=== PATIENT | female | born 1970 | race Caucasian/White ===

== ENCOUNTER 2016-05-02 12:37 | Emergency (ER) | payer OTHER ==
[2016-05-02] MEDS ORDERED: ONDANSETRON 4 MG TAB.RAPDIS PO ONE (12:55)
--- NOTE | 2016-05-02 12:57 | ER Document Report ---
ED Medical Screen (RME) - General Stated Complaint: DIZZINESS, NAUSEA Mode of Arrival: Ambulatory Information source: Patient Notes: 46 y/o F presents to ED c/o bilateral lower abd pain over the last week. Reports pain radiates to lower back and has associated intermittent nausea and dizziness. Reports similar episodes in the past. I have greeted and performed a rapid initial assessment of this patient. A comprehensive ED assessment and evaluation of the patient, analysis of test results and completion of the medical decision making process will be conducted by additional ED providers. TRAVEL OUTSIDE OF THE [place] IN LAST 30 DAYS: No - Related Data Allergies/Adverse Reactions: No Known Allergies Allergy (Verified 08/15/15 17:17) Past Medical History - Past Medical History Cardiac Medical History: Reports: Hx Hypertension Pulmonary Medical History: Reports: Hx Asthma, Hx COPD GI Medical History: Reports: Hx Gastroesophageal Reflux Disease Psychiatric Medical History: Reports: Hx Anxiety, Hx Attention Deficit Hyperactivity Disorder, Hx Bipolar Disorder, Hx Depression Past Surgical History: Reports: Hx Appendectomy, Hx Hysterectomy - Immunizations Hx Diphtheria, Pertussis, Tetanus Vaccination: Yes Physical Exam - Vital signs Vitals: Temp Pulse Resp BP Pulse Ox 98.4 F 98 20 132/84 H 95 05/02/16 12:53 05/02/16 12:53 05/02/16 12:53 05/02/16 12:53 05/02/16 12:53 - General General appearance: Appears well, Alert In distress: None - Respiratory Respiratory status: No respiratory distress Course - Vital Signs Vital signs: Temp Pulse Resp BP Pulse Ox 98.4 F 98 20 132/84 H 95 05/02/16 12:53 05/02/16 12:53 05/02/16 12:53 05/02/16 12:53 05/02/16 12:53
[2016-05-02 13:39] LABS: ABSOLUTE BASOPHILS # (AUTO) 0.1 10^3/uL (0.0-0.2); ABSOLUTE EOSINOPHILS # (AUTO) 0.1 10^3/uL (0.0-0.6); ABSOLUTE LYMPHOCYTES (AUTO) 3.6 10^3/uL (0.5-4.7); ABSOLUTE MONOCYTES (AUTO) 0.6 10^3/uL (0.1-1.4); ABSOLUTE NEUT (AUTO) 6.2 10^3/uL (1.7-8.2); BASOPHILS % (AUTO) 0.5 % (0-2); EOSINOPHILS % (AUTO) 0.6 % (0-6); HEMATOCRIT 45.6 % (36.0-47.0); HEMOGLOBIN 15.7 g/dL (12.0-15.5); HGB HCT DIFFERENCE 1.5; LYMPHOCYTES % (AUTO) 34.1 % (13-45); MEAN CORPUSCULAR HEMOGLOBIN 32.8 pg (27.0-33.4); MEAN CORPUSCULAR HGB CONC 34.4 g/dL (32.0-36.0); MEAN CORPUSCULAR VOLUME 96 fl (80-97); MONOCYTES % (AUTO) 5.7 % (3-13); RED BLOOD COUNT 4.77 10^6/uL (3.72-5.28); RED CELL DISTRIBUTION WIDTH 13.3 % (11.5-14.0); SEGMENTED NEUTROPHILS % (AUTO) 59.1 % (42-78); WHITE BLOOD COUNT 10.5 10^3/uL (4.0-10.5)
[2016-05-02 13:41] LABS: APPEARANCE,URINE CLEAR; BILIRUBIN,URINE NEGATIVE (NEGATIVE); GLUCOSE, URINE NEGATIVE (NEGATIVE); KETONES,URINE NEGATIVE (NEGATIVE); LEUKOCYTE ESTERASE,URINE NEGATIVE (NEGATIVE); NITRITE,URINE NEGATIVE (NEGATIVE); PROTEIN,URINE NEGATIVE (NEGATIVE); URINE SPECIFIC GRAVITY 1.004; UROBILINOGEN,URINE NEGATIVE mg/dL (<2.0)
[2016-05-02 13:54] LABS: ALANINE AMINOTRANSFERASE 34 U/L (9-52); ALBUMIN 4.5 g/dL (3.5-5.0); ALKALINE PHOSPHATASE 92 U/L (38-126); ANION GAP 8 (5-19); ASPARTATE AMINO TRANSFERASE 17 U/L (14-36); BILIRUBIN,TOTAL 0.6 mg/dL (0.2-1.3); BLOOD UREA NITROGEN 9 mg/dL (7-20); CALCIUM 10.3 mg/dL (8.4-10.2); CARBON DIOXIDE 30 mmol/L (22-30); CHLORIDE 102 mmol/L (98-107); CREATININE RESULT 0.82 mg/dL (0.52-1.25); GLUCOSE 86 mg/dL (75-110); LIPASE 49.9 U/L (23-300); SODIUM 140.4 mmol/L (137-145); TOTAL PROTEIN 7.1 g/dL (6.3-8.2)
[2016-05-02] MEDS ORDERED: KETOROLAC TROMETHAMINE 60 MG/2 ML SDV IM ONE (19:38)
--- NOTE | 2016-05-02 19:49 | ER Document Report ---
ED GI/ - General Chief Complaint: Abdominal Pain Stated Complaint: DIZZINESS, NAUSEA Mode of Arrival: Ambulatory Notes: Patient is complaining of pain in the lower lumbar region bilaterally that comes around to the anterior abdomen and culminates in the epigastric region of the abdomen. She says that she's had the same pain in the past and has been attributed to gallstones that she has had on ultrasound, the most recent being in August,. Patient is trying to work through the paperwork process of getting her gallbladder and no stones removed, but is still a month or 2 away from that goal. She's had some nausea and vomiting. Has chronic diarrhea for the past 2 months. Has been feeling dizzy as well. Some difficulty breathing and shortness of breath. Has a history of asthma and COPD and still smokes. Has not noticed any fever but has had some chills. Patient is concerned that her gallbladder will rupture and that's her primary reason for coming to the emergency department today. PMH: Appendectomy and hysterectomy. TRAVEL OUTSIDE OF THE [place] IN LAST 30 DAYS: No - Related Data Allergies/Adverse Reactions: No Known Allergies Allergy (Verified 05/02/16 12:56) Past Medical History - General Information source: Patient - Social History Smoking Status: Current Every Day Smoker Cigarette use (# per day): Yes Chew tobacco use (# tins/day): No Frequency of alcohol use: None Drug Abuse: None Family History: Reviewed & Not Pertinent Patient has suicidal ideation: No Patient has homicidal ideation: No - Past Medical History Cardiac Medical History: Reports: Hx Hypertension Pulmonary Medical History: Reports: Hx Asthma, Hx COPD GI Medical History: Reports: Hx Gastroesophageal Reflux Disease Musculoskeltal Medical History: Reports Other - Chronic back pain on Celexa and Percocet 15 mg every 4 hours as needed. Psychiatric Medical History: Reports: Hx Anxiety, Hx Attention Deficit Hyperactivity Disorder, Hx Bipolar Disorder, Hx Depression Past Surgical History: Reports: Hx Appendectomy, Hx Hysterectomy - Immunizations Hx Diphtheria, Pertussis, Tetanus Vaccination: Yes Hx Pneumococcal Vaccination: 12/11/14 Review of Systems - Review of Systems Notes: REVIEW OF SYSTEMS: CONSTITUTIONAL : Denies fever. EENT: Denies eye, ear, nose or mouth or throat pain or other symptoms. CARDIOVASCULAR: Denies chest pain. RESPIRATORY: Denies cough, chest congestion, but does occasionally feel short of breath or has difficulty breathing. GASTROINTESTINAL: See history of present illness. GENITOURINARY: Denies difficulty or painful urinating, urinary frequency, blood in urine. MUSCULOSKELETAL: Denies neck pain. Denies joint pain or swelling. SKIN: Denies rash or skin lesions. NEUROLOGICAL: Denies LOC or altered mental status. Denies headache. Denies sensory loss or motor deficits. ALL OTHER SYSTEMS REVIEWED AND NEGATIVE. Physical Exam - Vital signs Vitals: Temp Pulse Resp BP Pulse Ox 98.4 F 98 20 132/84 H 95 05/02/16 12:53 05/02/16 12:53 05/02/16 12:53 05/02/16 12:53 05/02/16 12:53 Interpretation: Normal - Notes Notes: PHYSICAL EXAMINATION: GENERAL: Well-appearing, in no acute distress. Vital signs are all normal. HEAD: Atraumatic, normocephalic. NECK: Normal range of motion, supple. LUNGS: Breath sounds clear and equal bilaterally. HEART: Regular rate and rhythm without murmurs. ABDOMEN: Soft, tender upper abdomen and in particular at the right upper quadrant where the gallbladder is located.. No guarding or rebound, however. BACK: No tenderness throughout entire back. EXTREMITIES: Normal range of motion without pain. PSYCH: Anxious. SKIN: Warm, dry, no rashes. Course - Re-evaluation Re-evalutation: 05/02/16 19:55 Ultrasound from August,, reviewed showing gallstones but no inflammation of the gallbladder at that time. Patient reassured that based upon her exam as well as her lab studies, I don't think it's likely that she's going to rupture her gallbladder. I'm giving her an injection of Toradol which she says helps her pain when she gets it. She has sufficient pain medications at home already. Return if she has increasing or worsening pain or other symptoms or fevers, etc. 05/02/16 19:56 - Vital Signs Vital signs: Temp Pulse Resp BP Pulse Ox 98.4 F 98 20 132/84 H 95 05/02/16 12:53 05/02/16 12:53 05/02/16 12:53 05/02/16 12:53 05/02/16 12:53 - Laboratory Result Diagrams: 05/02/16 13:15 05/02/16 13:15 Laboratory results interpreted by me: 05/02/16 05/02/16 13:15 13:15 Hgb 15.7 H Calcium 10.3 H Discharge - Discharge Clinical Impression: Abdominal pain Qualifiers: Abdominal location: right upper quadrant Qualified Code(s): R10.11 - Right upper quadrant pain Cholelithiasis Qualifiers: Cholelithiasis location: gallbladder Cholecystitis presence: without cholecystitis Biliary obstruction: without biliary obstruction Qualified Code(s) : K80.20 - Calculus of gallbladder without cholecystitis without obstruction Condition: Stable Disposition: HOME, SELF-CARE Additional Instructions: ABDOMINAL PAIN: There are many causes of abdominal pain. Pain can mean a serious problem requiring surgery (such as appendicitis). It can also be an innocent problem that goes away on its own (such as a viral infection). Often, time must pass to determine the cause of pain. The physician does not feel that hospitalization is necessary, at present. Things may change within the next 24 hours. Call the doctor or come back for re- examination if any problems occur, such as: (1) Pain that becomes more severe, steady, or becomes concentrated in one specific area. Also, pain that is more severe with movement or coughing. (2) Vomiting that persists or becomes more frequent. (3) Blood in the vomitus, urine, or bowel movements. Blood in the stool may have a tarry or black appearance. (4) Shaking chills or fever greater than 100 degrees F. (5) The abdomen becomes more distended or swollen. (6) Bowel movements cease. (7) Failure to improve as expected. NORMAL EXAM AND WORKUP: At this time, your examination and workup show no significant abnormality. No significant abnormal physical findings are noted. All laboratory, EKG, and imaging (x-ray, CT scans, ultrasound) studies that were ordered show no significant abnormality. Although your examination and all studies that were ordered showed no significant abnormal finding, there are no examinations and no studies that are 100% accurate. There is always the possibility that some abnormality could exist and not be detected with physical examination or within the limits and capabilities of laboratory and other studies. You should return or follow up as you were instructed on your visit today for further evaluation if your symptoms do not resolve. Your ultrasound in August,, showed Gallbladder Disease with gallstones. The gallbladder is a pouch under the liver which stores bile. Stones, infection, or irritation of the gallbladder cause attacks of pain. Certain foods -- fats in particular -- may provoke attacks. The usual treatment for gallbladder disease is surgical removal of the gallbladder -- called a cholecystectomy. You will be referred to a physician qualified to advise you on the best treatment for your problem. Hospitalization is not necessary. Take clear liquids only until you are painfree. After that, you should stay on a low-fat diet, with frequent SMALL meals. Call the doctor or return at once if you develop severe pain, repeated vomiting, fever, or jaundice (a yellow color in the skin and whites of the eyes) . TORADOL INJECTION: You have been given an injection of ketorolac tromethamine (Toradol). This is an excellent, safe drug for pain control. It also has potent antiinflammatory action. You should have significant pain relief within about one hour. Toradol is not addicting and is non-sedating. It does not interfere with driving or work. Call or return if you develop itching, hives, shortness of breath, or rash. FOLLOW-UP CARE: If you have been referred to a physician for follow-up care, call the physician s office for an appointment as you were instructed or within the next two days. If you experience worsening or a significant change in your symptoms, notify the physician immediately or return to the Emergency Department at any time for re-evaluation. If your pain worsens, you begin to have uncontrollable vomiting, or if you start running fevers, come back for us to reevaluate.
[2016-05-02 20:09] VITALS: BP 134/86
== END 2016-05-02 20:09 | disposition home or self-care (01) ==
LOC: ER 12:37
DX: K80.20 Calculus of gallbladder without cholecystitis without obstruction (principal); R10.11 Right upper quadrant pain; R10.9 Unspecified abdominal pain; R42 Dizziness and giddiness; R11.0 Nausea; F17.210 Nicotine dependence, cigarettes, uncomplicated
CPT/HCPCS: 99284; 96372; 36415; 83690; 85025; 80053; 81001; J1885; S0119

== ENCOUNTER 2016-06-05 18:14 | Emergency (ER) | payer OTHER ==
[2016-06-05] MEDS ORDERED: PREDNISONE 20 MG TABLET PO ONE (18:19)
[2016-06-05] MEDS ORDERED: IPRATROPIUM/ALBUTEROL 0.5-2.5 MG/3 ML AMPUL NEB ONE (18:20)
--- NOTE | 2016-06-05 18:21 | ER Document Report ---
ED Medical Screen (RME) - General Stated Complaint: DIFFICULTY BREATHING Mode of Arrival: Wheelchair Information source: Patient Notes: Patient presents emergency department with chest tightness difficulty breathing. History of asthma. Ran out of her inhaler. Positive wheeze. Denies fever vomiting diarrhea. I have greeted and performed a rapid initial assessment of this patient. A comprehensive ED assessment and evaluation of the patient, analysis of test results and completion of the medical decision making process will be conducted by additional ED providers. TRAVEL OUTSIDE OF THE [place] IN LAST 30 DAYS: No - Related Data Allergies/Adverse Reactions: No Known Allergies Allergy (Verified 06/05/16 18:19) Past Medical History - Past Medical History Cardiac Medical History: Reports: Hx Hypertension Pulmonary Medical History: Reports: Hx Asthma, Hx COPD Renal/ Medical History: Denies: Hx Peritoneal Dialysis GI Medical History: Reports: Hx Gastroesophageal Reflux Disease Psychiatric Medical History: Reports: Hx Anxiety, Hx Attention Deficit Hyperactivity Disorder, Hx Bipolar Disorder, Hx Depression Past Surgical History: Reports: Hx Appendectomy, Hx Hysterectomy - Immunizations Hx Diphtheria, Pertussis, Tetanus Vaccination: Yes
[2016-06-05] MEDS ORDERED: ALBUTEROL SULFATE 0.083% NEB 2.5 MG/3 ML AMPUL NEB SCH (18:35)
== END 2016-06-05 21:03 | disposition left against medical advice (07) ==
LOC: ER 18:14
DX: J44.9 Chronic obstructive pulmonary disease, unspecified (principal); R07.89 Other chest pain; R06.00 Dyspnea, unspecified; I10 Essential (primary) hypertension; Z53.20 Procedure and treatment not carried out because of patient's decision for unspecified reasons
CPT/HCPCS: 94640 ×2; 99281; J7512; J7620

== ENCOUNTER 2016-06-07 15:52 | Emergency (ER) | payer OTHER ==
[2016-06-07] MEDS ORDERED: ASPIRIN 81 MG TABLET, CHEWABLE PO ONE (16:48)
[2016-06-07] MEDS ORDERED: ALBUTEROL SULFATE 0.083% NEB 2.5 MG/3 ML AMPUL NEB ONE (16:49)
--- NOTE | 2016-06-07 16:49 | ER Document Report ---
ED Medical Screen (RME) - General Stated Complaint: SHORTNESS OF BREATH Notes: Patient complains of shortness of breath and chest pain that is shooting through between her shoulder blades since Monday. Patient does have COPD, and thinks she has beginning pneumonia. No known fever. Patient is not on oxygen at home, but does use inhalers which she states are not helping her. Patient's cough is productive but in small amounts. I have greeted and performed a rapid initial assessment of this patient. A comprehensive ED assessment and evaluation of the patient, analysis of test results and completion of the medical decision making process will be conducted by additional ED providers. TRAVEL OUTSIDE OF THE [place] IN LAST 30 DAYS: No - Related Data Allergies/Adverse Reactions: No Known Allergies Allergy (Verified 06/07/16 16:45) Past Medical History - Past Medical History Cardiac Medical History: Reports: Hx Hypertension Pulmonary Medical History: Reports: Hx Asthma, Hx COPD Renal/ Medical History: Denies: Hx Peritoneal Dialysis GI Medical History: Reports: Hx Gastroesophageal Reflux Disease Psychiatric Medical History: Reports: Hx Anxiety, Hx Attention Deficit Hyperactivity Disorder, Hx Bipolar Disorder, Hx Depression Past Surgical History: Reports: Hx Appendectomy, Hx Hysterectomy - Immunizations Hx Diphtheria, Pertussis, Tetanus Vaccination: Yes Physical Exam - Vital signs Vitals: Temp Pulse Resp BP Pulse Ox 98.6 F 80 14 112/84 94 06/07/16 16:35 06/07/16 16:35 06/07/16 16:35 06/07/16 16:35 06/07/16 16:35 - Respiratory Respiratory status: Labored Breath sounds: Decreased air movement, Wheezing Course - Vital Signs Vital signs: Temp Pulse Resp BP Pulse Ox 98.6 F 80 14 112/84 94 06/07/16 16:35 06/07/16 16:35 06/07/16 16:35 06/07/16 16:35 06/07/16 16:35
[2016-06-07 17:14] LABS: ABSOLUTE BASOPHILS # (AUTO) 0.1 10^3/uL (0.0-0.2); ABSOLUTE EOSINOPHILS # (AUTO) 0.1 10^3/uL (0.0-0.6); ABSOLUTE LYMPHOCYTES (AUTO) 3.6 10^3/uL (0.5-4.7); ABSOLUTE MONOCYTES (AUTO) 0.6 10^3/uL (0.1-1.4); ABSOLUTE NEUT (AUTO) 5.6 10^3/uL (1.7-8.2); BASOPHILS % (AUTO) 0.7 % (0-2); EOSINOPHILS % (AUTO) 1.4 % (0-6); HEMATOCRIT 45.9 % (36.0-47.0); HEMOGLOBIN 15.6 g/dL (12.0-15.5); HGB HCT DIFFERENCE 0.9; LYMPHOCYTES % (AUTO) 35.9 % (13-45); MEAN CORPUSCULAR HEMOGLOBIN 32.5 pg (27.0-33.4); MEAN CORPUSCULAR HGB CONC 34.1 g/dL (32.0-36.0); MEAN CORPUSCULAR VOLUME 95 fl (80-97); MONOCYTES % (AUTO) 5.9 % (3-13); RED BLOOD COUNT 4.82 10^6/uL (3.72-5.28); RED CELL DISTRIBUTION WIDTH 13.2 % (11.5-14.0); SEGMENTED NEUTROPHILS % (AUTO) 56.1 % (42-78)
[2016-06-07 17:18] LABS: PROTHROMBIN TIME 12.5 SEC (11.4-15.4)
[2016-06-07 17:30] LABS: ALANINE AMINOTRANSFERASE 29 U/L (9-52); ALBUMIN 4.4 g/dL (3.5-5.0); ALKALINE PHOSPHATASE 100 U/L (38-126); ANION GAP 9 (5-19); ASPARTATE AMINO TRANSFERASE 17 U/L (14-36); BILIRUBIN,DIRECT 0.1 mg/dL (0.0-0.4); BILIRUBIN,TOTAL 0.6 mg/dL (0.2-1.3); BLOOD UREA NITROGEN 20 mg/dL (7-20); CALCIUM 10.3 mg/dL (8.4-10.2); CARBON DIOXIDE 31 mmol/L (22-30); CHLORIDE 103 mmol/L (98-107); CREATINE KINASE 48 U/L (30-135); CREATININE RESULT 0.88 mg/dL (0.52-1.25); GLUCOSE 88 mg/dL (75-110); SODIUM 143.3 mmol/L (137-145); TOTAL PROTEIN 7.1 g/dL (6.3-8.2)
[2016-06-07 17:41] LABS: CREATINE KINASE MB 0.39 ng/mL (<4.55)
[2016-06-07 17:43] LABS: TROPONIN I < 0.012 ng/mL
--- NOTE | 2016-06-07 20:22 | EKG REPORT ---
SEVERITY:- ABNORMAL ECG - SINUS RHYTHM FIRST DEGREE AV BLOCK : Confirmed by: Cecelia Elmore 07-Jun-2016 20:21:56
[2016-06-07] MEDS ORDERED: IPRATROPIUM/ALBUTEROL 0.5-2.5 MG/3 ML AMPUL NEB ONE ×3 (22:21→23:48)
[2016-06-07] MEDS ORDERED: METHYLPREDNISOLONE INJ 125 MG/2 ML SDV IV ONE (22:21)
[2016-06-07] MEDS ORDERED: PREDNISONE 20 MG TABLET PO ONE (23:11)
--- NOTE | 2016-06-08 01:17 | ER Document Report ---
ED Respiratory Problem - General Chief Complaint: Shortness Of Breath Stated Complaint: SHORTNESS OF BREATH Mode of Arrival: Ambulatory Information source: Patient Notes: 46-year-old female presents to the emergency department complaining of worsening cough and shortness of breath for approximately last 3 days. Patient reports history of COPD and states is out of her albuterol. Patient also states has not seen primary care provider for several months. Reports is supposed to be on home oxygen but has not been able to afford it. States checked her O2 saturation at home and has noted it to be in the low 90s over the last 2-3 days. Reports associated chills with unmeasured temperature at home and substernal chest pain during coughing bouts. Denies chest pain without cough, nausea or vomiting or hemoptysis. TRAVEL OUTSIDE OF THE [place] IN LAST 30 DAYS: No - HPI Patient complains to provider of: COPD Onset: Last week Duration: Worse/persistent Initiating Event: URI Quality of pain: Achy Severity: Mild Pain Level: 2 Context: Hx COPD Short of Breath: Mild Chest pain/discomfort: Center Cough: Nonproductive Similar symptoms previously: Yes Recently seen / treated by doctor: No - Related Data Allergies/Adverse Reactions: No Known Allergies Allergy (Verified 06/07/16 16:45) Past Medical History - General Information source: Patient - Social History Smoking Status: Current Every Day Smoker Chew tobacco use (# tins/day): No Frequency of alcohol use: None Drug Abuse: None Lives with: Family Family History: Reviewed & Not Pertinent Patient has suicidal ideation: No Patient has homicidal ideation: No - Past Medical History Cardiac Medical History: Reports: Hx Hypertension Pulmonary Medical History: Reports: Hx Asthma, Hx COPD Renal/ Medical History: Denies: Hx Peritoneal Dialysis GI Medical History: Reports: Hx Gastroesophageal Reflux Disease Psychiatric Medical History: Reports: Hx Anxiety, Hx Attention Deficit Hyperactivity Disorder, Hx Bipolar Disorder, Hx Depression Past Surgical History: Reports: Hx Appendectomy, Hx Hysterectomy - Immunizations Hx Diphtheria, Pertussis, Tetanus Vaccination: Yes Hx Pneumococcal Vaccination: 12/11/14 Review of Systems - Review of Systems Constitutional: See HPI EENT: No symptoms reported Cardiovascular: No symptoms reported Respiratory: See HPI Gastrointestinal: No symptoms reported Genitourinary: No symptoms reported Female Genitourinary: No symptoms reported Musculoskeletal: No symptoms reported Skin: No symptoms reported Hematologic/Lymphatic: No symptoms reported Neurological/Psychological: No symptoms reported -: Yes All other systems reviewed and negative Physical Exam - Vital signs Vitals: Temp Pulse Resp BP Pulse Ox 98.6 F 80 14 112/84 94 06/07/16 16:35 06/07/16 16:35 06/07/16 16:35 06/07/16 16:35 06/07/16 16:35 - General General appearance: Appears well, Alert In distress: None - Respiratory Respiratory status: No respiratory distress. No: Labored, Tachypnea Chest status: Nontender, Pain with cough. No: Tender, Chest mass, Ecchymosis, No pleuritic chest pain, Pain on movement, Pain with deep breathing, Wounds, Accessory muscle use, Prolonged expirations, Splinting, Other Breath sounds: Nonproductive cough, Rhonchi - Mild scattered bilaterally, Wheezing - Mild expiratory Chest palpation: Normal - Cardiovascular Rhythm: Regular Heart sounds: Normal auscultation Murmur: No Pulses: Normal: Radial Normal capillary refill: Yes - Abdominal Inspection: Normal Distension: No distension Bowel sounds: Normal Tenderness: Nontender Organomegaly: No organomegaly - Back Back: Normal, Nontender - Extremities General upper extremity: Normal inspection, Nontender, Normal color, Normal ROM , Normal temperature General lower extremity: Normal inspection, Nontender, Normal color, Normal ROM , Normal temperature, Normal weight bearing. No: Edema - Neurological Neuro grossly intact: Yes Cognition: Normal Orientation: AAOx4 [place] Coma Scale Eye Opening: Spontaneous [place] Coma Scale Verbal: Oriented [place] Coma Scale Motor: Obeys Commands [place] Coma Scale Total: 15 Speech: Normal Motor strength normal: LUE, RUE, LLE, RLE Sensory: Normal - Skin Skin Temperature: Warm Skin Moisture: Dry Skin Color: Normal Course - Re-evaluation Re-evalutation: 06/08/16 01:30 Patient hemodynamically stable, in no distress, afebrile, nontoxic. Labs and chest x-ray unremarkable. Wheezing and rhonchi significantly improved after DuoNeb/nebulizer albuterol and oral prednisone. Patient able to speak in full sentences and ambulate independently and room air without desaturation or dyspnea. Patient appears stable for discharge and agrees with home care, follow -up with PCP, and ED return precautions. - Vital Signs Vital signs: Temp Pulse Resp BP Pulse Ox 98.6 F 74 18 109/70 94 06/08/16 01:47 06/08/16 01:47 06/08/16 01:47 06/08/16 01:47 06/08/16 01:47 - Laboratory Result Diagrams: 06/07/16 16:55 06/07/16 16:55 Laboratory results interpreted by me: 06/07/16 06/07/16 16:55 16:55 Hgb 15.6 H Carbon Dioxide 31 H Calcium 10.3 H - Diagnostic Test Radiology reviewed: Image reviewed, Reports reviewed - EKG Interpretation by Me EKG shows normal: Sinus rhythm, QRS Complexes, ST-T Waves Rate: Normal Heart block present: 1st Degree When compared to previous EKG there are: No significant change Discharge - Discharge Clinical Impression: COPD (chronic obstructive pulmonary disease) Qualifiers: COPD type: COPD with acute exacerbation Qualified Code(s): J44.1 - Chronic obstructive pulmonary disease with (acute) exacerbation Condition: Stable Disposition: HOME, SELF-CARE Instructions: Chronic Obstructive Lung Disease ([facility]), Steroid Medication, Inhaled Bronchodilators ([facility]) Additional Instructions: Drink plenty of fluids. Follow-up with your primary care provider tomorrow. Return to the Emergency Department for any worsening symptoms, if your are having to use your inhaler/nebulizer more often than every 4 hours, or for any concerns. Prescriptions: Albuterol Sulfate [Albuterol Sulfate 2.5mg/3 mL] 1 vial [facility] Q4 PRN #20 vial PRN Reason: Prednisone [Deltasone 10 mg Tablet] 10 mg PO ASDIR PRN #21 tablet PRN Reason: Forms: Smoking Cessation Education Referrals: MARQUISE VALLE PA-C [NO LOCAL MD] - Follow up tomorrow
[2016-06-08 02:05] VITALS: BP 109/70
== END 2016-06-08 01:50 | disposition home or self-care (01) ==
LOC: ER 15:52
DX: J44.1 Chronic obstructive pulmonary disease with (acute) exacerbation (principal); R06.02 Shortness of breath; R05 Cough; R07.9 Chest pain, unspecified; F17.200 Nicotine dependence, unspecified, uncomplicated
CPT/HCPCS: 93005; 94640 ×2; 99285; 36415; 82553; 82550; 85025; 85610; 80053; 84484; 87804; 71010; 93010; J7512; J7620

== ENCOUNTER 2016-07-21 19:30 | Emergency (ER) | payer OTHER ==
[2016-07-21] MEDS ORDERED: PENICILLIN G BENZATHINE 1.2 MILLION UNIT/2 ML DISP.SYRIN IM ONE (20:38)
[2016-07-21] MEDS ORDERED: DEXAMETHASONE SOD PHOS INJ 10 MG/1 ML VIAL IM ONE (20:38)
--- NOTE | 2016-07-21 20:46 | ER Document Report ---
ED ENT - General Mode of Arrival: Ambulatory Information source: Patient TRAVEL OUTSIDE OF THE [place] IN LAST 30 DAYS: No - HPI Patient complains to provider of: Throat problem Onset: Yesterday Associated symptoms: Other - See above - General Chief Complaint: Sore Throat Stated Complaint: SORE THROAT Time Seen by Provider: 07/21/16 20:30 Notes: Patient is a 46 year old female, with a past medical history including COPD and TIA, who presents to the emergency department complaining of a sore throat onset last night. Patient reports it started as sinus drainage and then she noticed she had a fever and was diaphoretic during the night, this morning patient woke up with a sore throat, neck pain, and pain when swallowing. Patient reports she took some sinus medications at home with no relief. (CARLENE GALVEZ) - Related Data Allergies/Adverse Reactions: No Known Allergies Allergy (Verified 07/21/16 19:45) Home Medications: Current Home Medications Atorvastatin Calcium 1 tab PO DAILY 07/21/16 [History] Promethazine HCl [Phenergan 25 mg Tablet] 2 tab PO ASDIR PRN 07/21/16 [History] Past Medical History - General Information source: Patient - Social History Smoking Status: Current Every Day Smoker Chew tobacco use (# tins/day): No Frequency of alcohol use: None Drug Abuse: None Family History: Reviewed & Not Pertinent - Past Medical History Cardiac Medical History: Reports: Hx Hypertension Pulmonary Medical History: Reports: Hx Asthma, Hx COPD Neurological Medical History: Reports: Other - Hx TIA GI Medical History: Reports: Hx Gastroesophageal Reflux Disease Psychiatric Medical History: Reports: Hx Anxiety, Hx Attention Deficit Hyperactivity Disorder, Hx Bipolar Disorder, Hx Depression Past Surgical History: Reports: Hx Appendectomy, Hx Hysterectomy - Immunizations Hx Diphtheria, Pertussis, Tetanus Vaccination: Yes Hx Pneumococcal Vaccination: 12/11/14 Review of Systems - Review of Systems Constitutional: See HPI, Diaphoresis, Fever EENT: See HPI, Sinus discharge, Throat pain, Difficulty swallowing - pain Cardiovascular: No symptoms reported Respiratory: No symptoms reported Gastrointestinal: No symptoms reported Genitourinary: No symptoms reported Female Genitourinary: No symptoms reported Musculoskeletal: See HPI, Neck pain Skin: No symptoms reported Hematologic/Lymphatic: No symptoms reported Neurological/Psychological: No symptoms reported -: Yes All other systems reviewed and negative Physical Exam - Vital signs Interpretation: Normal - General General appearance: Appears well, Alert - HEENT Head: Normocephalic, Atraumatic Tympanic membrane: Other - clear fluid behind tympanic membrane bilaterally Nasal: Clear rhinorrhea - bilaterally Pharynx: Other - Tonsils are erythematous and enlarged symetrically, they are not kissing, purulent exudate noted - Respiratory Respiratory status: No respiratory distress Chest status: Nontender Breath sounds: Normal Chest palpation: Normal - Cardiovascular Rhythm: Regular Heart sounds: Normal auscultation Murmur: No Pulses: Normal: Radial - Back Back: Normal, Nontender - Extremities General upper extremity: Normal inspection General lower extremity: Normal inspection - Neurological Neuro grossly intact: Yes Cognition: Normal Orientation: AAOx4 [place] Coma Scale Eye Opening: Spontaneous [place]uate Coma Scale Verbal: Oriented [place] Coma Scale Motor: Obeys Commands [place] Coma Scale Total: 15 Speech: Normal - Psychological Associated symptoms: Normal affect, Normal mood - Skin Skin Temperature: Warm Skin Moisture: Dry Skin Color: Normal Course - Re-evaluation Re-evalutation: 07/21/16 20:51 Clinically consistent with strep pharyngitis, treat with steroids and penicillin. Discharge to home. (ELSY CARMEN) - Vital Signs Vital signs: Temp Pulse Resp BP Pulse Ox 100.4 F 114 H 24 H 135/82 H 96 07/21/16 19:52 07/21/16 19:52 07/21/16 19:52 07/21/16 19:52 07/21/16 19:52 Discharge - Discharge Clinical Impression: Strep pharyngitis Condition: Stable Disposition: HOME, SELF-CARE Instructions: Strep Throat ([facility]) Scribe Attestation: 07/21/16 20:53 I personally performed the services described in the documentation, reviewed and edited the documentation which was dictated to the scribe in my presence, and it accurately records my words and actions. (ELSY CARMEN) Scribe Documentation - Scribe Written by Nilson:: nilson Palacios, 07/21/[id number] acting as scribe for :: Vinod
[2016-07-21 21:08] VITALS: BP 128/88
== END 2016-07-21 21:16 | disposition home or self-care (01) ==
LOC: ER 19:30
DX: J02.0 Streptococcal pharyngitis (principal); M54.2 Cervicalgia; R50.9 Fever, unspecified; R61 Generalized hyperhidrosis; F17.200 Nicotine dependence, unspecified, uncomplicated; J44.9 Chronic obstructive pulmonary disease, unspecified; I10 Essential (primary) hypertension; J45.909 Unspecified asthma, uncomplicated; K21.9 Gastro-esophageal reflux disease without esophagitis; Z90.710 Acquired absence of both cervix and uterus; Z86.73 Personal history of transient ischemic attack (TIA), and cerebral infarction without residual deficits
CPT/HCPCS: 99283; 96372; J0561; J1100

== ENCOUNTER → 2016-07-27 | Outpatient (CLI) | payer OTHER | LOC: WI 08:45 | DX: Z12.31 Encounter for screening mammogram for malignant neoplasm of breast (principal) | CPT/HCPCS: 77067; G0202 ==

== ENCOUNTER 2017-05-30 17:53 | Emergency (ER) | payer SELFPAY ==
[2017-05-30 18:03] VITALS: BP 127/73
[2017-05-30] MEDS ORDERED: LIDOCAINE 1% INJ-PF (10 MG/ML) 30 ML SDV INJ ONE (18:38)
--- NOTE | 2017-05-30 18:39 | ER Document Report ---
ED Hand/Wrist Injury - General Chief Complaint: Finger Injury Stated Complaint: FINGER INJURY Time Seen by Provider: 05/30/17 18:26 Mode of Arrival: Ambulatory Information source: Patient Notes: 47-year-old female presents to ED for laceration and contusion to left index finger. She states she got her finger caught on the screw to the strike plate of the door. There is a large laceration to the finger. Patient has full range of motion to the hand and finger. TRAVEL OUTSIDE OF THE [place] IN LAST 30 DAYS: No - HPI Injury to: Index finger - Left Onset: Just prior to arrival Where: Home, Indoors Timing: Still present Quality of pain: Sharp, Throbbing Severity: Moderate Pain Level: 3 Context: Blow, Laceration - Related Data Allergies/Adverse Reactions: No Known Allergies Allergy (Verified 05/30/17 17:55) Past Medical History - General Information source: Patient - Social History Smoking Status: Current Every Day Smoker Cigarette use (# per day): Yes - Pack per day Smoking Education Provided: Yes - 4 minutes Frequency of alcohol use: None Drug Abuse: None Occupation: None Lives with: Family - Son Family History: Arthritis, CAD, DM, Hyperlipidemia, Hypertension, Malignancy. denies: COPD, CVA Patient has suicidal ideation: No Patient has homicidal ideation: No - Past Medical History Cardiac Medical History: Reports: Hx Hypercholesterolemia, Hx Hypertension Pulmonary Medical History: Reports: Hx Asthma, Hx COPD EENT Medical History: Reports: None Neurological Medical History: Reports: None Endocrine Medical History: Reports: None Renal/ Medical History: Reports: None Malignancy Medical History: Reports: None GI Medical History: Reports: Hx Gastroesophageal Reflux Disease Musculoskeltal Medical History: Reports None Skin Medical History: Reports None Psychiatric Medical History: Reports: Hx Anxiety, Hx Attention Deficit Hyperactivity Disorder, Hx Bipolar Disorder, Hx Depression Traumatic Medical History: Reports: None Infectious Medical History: Reports: None Past Surgical History: Reports: Hx Appendectomy, Hx Hysterectomy - Immunizations Hx Diphtheria, Pertussis, Tetanus Vaccination: Yes Hx Pneumococcal Vaccination: 12/11/14 Review of Systems - Review of Systems Constitutional: No symptoms reported EENT: No symptoms reported Cardiovascular: No symptoms reported Respiratory: No symptoms reported Gastrointestinal: No symptoms reported Genitourinary: No symptoms reported Female Genitourinary: No symptoms reported Musculoskeletal: Other - Pain to left index finger Skin: Other - Duration to left index finger Hematologic/Lymphatic: No symptoms reported Neurological/Psychological: No symptoms reported Physical Exam - Vital signs Vitals: Temp Pulse Resp BP Pulse Ox 99.4 F 94 16 127/73 H 96 05/30/17 18:01 05/30/17 18:01 05/30/17 18:01 05/30/17 18:01 05/30/17 18:01 Interpretation: Normal - General General appearance: Appears well, Alert - HEENT Head: Normocephalic, Atraumatic Eyes: Normal Pupils: PERRL - Respiratory Respiratory status: No respiratory distress Chest status: Nontender Breath sounds: Normal Chest palpation: Normal - Cardiovascular Rhythm: Regular Heart sounds: Normal auscultation Murmur: No - Abdominal Inspection: Normal Distension: No distension Bowel sounds: Normal Tenderness: Nontender Organomegaly: No organomegaly - Back Back: Normal, Nontender - Extremities General upper extremity: Normal color, Normal ROM, Normal temperature General lower extremity: Normal inspection, Nontender, Normal color, Normal ROM , Normal temperature, Normal weight bearing. No: Donna's sign Hand: Laceration - Involving the side of the nail but not the actual nail itself , No evidence of human bite, No evidence of FB, Swelling - Neurological Neuro grossly intact: Yes Cognition: Normal Orientation: AAOx4 [place] Coma Scale Eye Opening: Spontaneous [place] Coma Scale Verbal: Oriented [place] Coma Scale Motor: Obeys Commands [place] Coma Scale Total: 15 Speech: Normal Motor strength normal: LUE, RUE, LLE, RLE Sensory: Normal - Psychological Associated symptoms: Normal affect, Normal mood - Skin Skin Temperature: Warm Skin Moisture: Dry Skin Color: Normal Skin irregularity: Laceration Location of irregularity: Extremities - Left index finger Irregularity with: Swelling, Tenderness Course - Re-evaluation Re-evalutation: 05/30/17 20:37 Laceration to left index finger sutured with 1 suture to the nail to hold the flap in place. - Vital Signs Vital signs: Temp Pulse Resp BP Pulse Ox 99.4 F 94 16 127/73 H 96 05/30/17 18:01 05/30/17 18:01 05/30/17 18:01 05/30/17 18:01 05/30/17 18:01 - Diagnostic Test Radiology reviewed: Image reviewed, Reports reviewed Procedures - Immobilization Left Finger 2nd digit Time completed: 20:22 Pre-Proc Neuro Vasc Exam: Normal Immobilizer type: Finger protection Performed by: PCT Post-Proc Neuro Vasc Exam: Normal Alignment checked and good: Yes - Laceration/Wound Repair Left Finger 2nd digit Time completed: 20:21 Wound length (cm): 2 Wound's Depth, Shape: Flap Laceration pre-procedure: Sterile PPE donned, Sterile drapes applied, Shur- Clens applied Anesthetic type: 1% Lidocaine Volume Anesthetic (mLs): 4 Wound explored: No foreign body removed, Contaminated Irrigated w/ Saline (mLs): 300 Wound Repaired With: Sutures Suture Size/Type: 5:0, Ethilon Number of Sutures: 5 Layer Closure?: No Post-procedure wound care: Sterile dressing applied, Splint applied Post-procedure NV exam normal: Yes Complications: No Discharge - Discharge Clinical Impression: Laceration of left index finger Qualifiers: Encounter type: initial encounter Damage to nail status: unspecified Foreign body presence: without foreign body Qualified Code(s): S61.211A - Laceration without foreign body of left index finger without damage to nail, initial encounter Condition: Stable Disposition: HOME, SELF-CARE Additional Instructions: Hand Laceration A laceration on the hand can present special problems. It may be difficult to keep the wound dry. Motion of the fingers can disturb the healing edges. Your work may involve exposure to damaging chemicals or water. Keep the wound clean and dry. If you can't keep the cut dry, undisturbed, and free of chemical exposure, please discuss this with the doctor. If any water or chemical gets onto the dressing, remove it, blot the wound dry, then apply a fresh bandage. Dressings should be changed every day. If you feel the stitches pulling as you move the hand, a splint or other form of protection is needed. If any signs of infection occur (swelling, redness, increasing tenderness, red streaks, tender lumps in the armpit, or fever), see the doctor immediately. SOAP CLEANSING: Gently wash the wound daily using a mild soap (like Ivory, Phisoderm, Neutrogena). Use warm water, rubbing gently until all debris, ooze, and crusting have been washed from the wound. Allow to dry briefly (about 10 minutes) after cleaning. Repeat this cleansing at least three times a day for the first two days and then once or twice a day. ANTIBIOTIC OINTMENT PROTECTION: Your wounds are such that dressing them is not practical or optional. After cleansing, you should apply a thin coating of antibiotic ointment ( Bacitracin, not Neosporin) to the wounds at least three times daily. This lessens infection risk, and may decrease the amount of scarring. Use a q-tip or dull butter knife, not your finger, to apply this ointment. Any debris or ooze which builds up in the ointment should be gently rubbed off with a sterile gauze pad. Harder crusting may need to be gently scrubbed off with a clean wash cloth with soap and warm water, perhaps applying a warm, wet wash cloth to the wound for ten minutes first. Development of redness, severe itching, or blistering may mean allergy to the ointment. See the doctor. FOLLOW-UP CARE: Please return in __3___ days for an infection check and dressing change. Your sutures should be removed in ___8__ days. To facilitate a timely removal of your sutures, you may return to the Emergency Department at [facility]. You do not need to call for an appointment, but the best time to come in for suture removal is early in the morning. If you have been referred to another physician for follow-up care, call that physicians office for an appointment as you were instructed. If you experience a significant change in your laceration, or if you are concerned there may be an infection (swelling, redness, drainage, increasing tenderness, red streaks, tender lumps in the armpit or groin above the laceration, or fever) , return to the Emergency Department immediately re-evaluation. Forms: Elevated Blood Pressure Referrals: MARQUISE VALLE PA-C [Primary Care Provider] - Follow up as needed
--- NOTE | 2017-05-30 19:03 | RADIOLOGY REPORT (SQ) ---
EXAM DESCRIPTION: FINGER LEFT COMPLETED DATE/TIME: 05/30/2017 6:45 pm REASON FOR STUDY: slammed door on finger index COMPARISON: None. NUMBER OF VIEWS: Three views. TECHNIQUE: AP, lateral, and oblique images acquired of the left second finger. LIMITATIONS: None. FINDINGS: MINERALIZATION: Normal. BONES: No acute fracture or dislocation. No worrisome bone lesions. SOFT TISSUES: There appears to be a soft tissue injury involving the nail. OTHER: No other significant finding. IMPRESSION: No acute osseous abnormality. COMMENT: SITE OF TRAUMA/COMPLAINT MARKED/STAMP COMPLETED: YES. TECHNICAL DOCUMENTATION: JOB ID: [id number] [employer]- All Rights Reserved Reading location - IP/workstation name: [email or web address]
== END 2017-05-30 20:40 | disposition home or self-care (01) ==
LOC: ER 17:53
PROC: 0HQGXZZ Repair Left Hand Skin, External Approach (ICD-10-PCS; principal; 2017-05-30)
DX: S61.211A Laceration without foreign body of left index finger without damage to nail, initial encounter (principal); F17.210 Nicotine dependence, cigarettes, uncomplicated; W45.0XXA Nail entering through skin, initial encounter; Y92.009 Unspecified place in unspecified non-institutional (private) residence as the place of occurrence of the external cause; E78.00 Pure hypercholesterolemia, unspecified; I10 Essential (primary) hypertension; J44.9 Chronic obstructive pulmonary disease, unspecified; Z90.710 Acquired absence of both cervix and uterus
CPT/HCPCS: 99283; 99406

== ENCOUNTER 2017-06-02 11:38 | Emergency (ER) | payer SELFPAY ==
[2017-06-02 11:43] VITALS: BP 122/92
--- NOTE | 2017-06-02 12:45 | ER Document Report ---
ED Suture/Wound Recheck - General Chief Complaint: Wound Recheck Stated Complaint: WOUND RECHECK Time Seen by Provider: 06/02/17 12:25 Mode of Arrival: Ambulatory Information source: Patient Notes: 47-year-old female presents to ED for 3 day wound check on her left index finger. She had a laceration to her finger that was sutured on 320. The sutures are healing well there is no redness or inflammation there is no drainage. There is no complaints at this time. She states she is cleaning it as instructed in using the antibiotic cream as she was instructed. She knows that she needs to wait to to have the sutures out. She states she will return to have the sutures removed as ordered. TRAVEL OUTSIDE OF THE [place] IN LAST 30 DAYS: No - HPI Previous ED treatment: Laceration repair Antibiotics given previously: Prescription Quality of pain: No pain Severity: None Pain Level: Denies Context: Injury Symptoms since procedure: Other - Some places of the tissue are white. This is expected as it was a flap laceration Exacerbated by: Denies Relieved by: Denies - Related Data Allergies/Adverse Reactions: No Known Allergies Allergy (Verified 06/02/17 11:41) Past Medical History - General Information source: Patient - Social History Smoking Status: Current Every Day Smoker Cigarette use (# per day): Yes Chew tobacco use (# tins/day): No Frequency of alcohol use: None Drug Abuse: None Lives with: Family Family History: Arthritis, CAD, DM, Hyperlipidemia, Hypertension, Malignancy. denies: COPD, CVA Patient has suicidal ideation: No Patient has homicidal ideation: No - Past Medical History Cardiac Medical History: Reports: Hx Hypercholesterolemia, Hx Hypertension Pulmonary Medical History: Reports: Hx Asthma, Hx COPD EENT Medical History: Reports: None Neurological Medical History: Reports: None Endocrine Medical History: Reports: None Renal/ Medical History: Reports: None Malignancy Medical History: Reports: None GI Medical History: Reports: Hx Gastroesophageal Reflux Disease Musculoskeltal Medical History: Reports None Psychiatric Medical History: Reports: Hx Anxiety, Hx Attention Deficit Hyperactivity Disorder, Hx Bipolar Disorder, Hx Depression Traumatic Medical History: Reports: None Infectious Medical History: Reports: None Past Surgical History: Reports: Hx Appendectomy, Hx Hysterectomy - Immunizations Hx Diphtheria, Pertussis, Tetanus Vaccination: Yes Hx Pneumococcal Vaccination: 12/11/14 Review of Systems - Review of Systems Constitutional: No symptoms reported EENT: No symptoms reported Cardiovascular: No symptoms reported Respiratory: No symptoms reported Gastrointestinal: No symptoms reported Genitourinary: No symptoms reported Female Genitourinary: No symptoms reported Musculoskeletal: No symptoms reported Skin: Other - Laceration recheck Hematologic/Lymphatic: No symptoms reported Neurological/Psychological: No symptoms reported Physical Exam - Vital signs Vitals: Temp Pulse Resp BP Pulse Ox 99.7 F 90 18 122/92 H 95 06/02/17 11:42 06/02/17 11:42 06/02/17 11:42 06/02/17 11:42 06/02/17 11:42 - Skin Skin Temperature: Warm Skin Moisture: Dry Skin Color: Normal Skin irregularity: Laceration - Visit for wound recheck, laceration healing as expected, sutures intact, and no signs of infection Location of irregularity: Extremities - Finger Course - Vital Signs Vital signs: Temp Pulse Resp BP Pulse Ox 99.7 F 90 18 122/92 H 95 06/02/17 11:42 06/02/17 11:42 06/02/17 11:42 06/02/17 11:42 06/02/17 11:42 Discharge - Discharge Clinical Impression: Encounter for wound re-check Disposition: HOME, SELF-CARE Instructions: Family Physicians / Practices Additional Instructions: You were seen today for a recheck of your sutures on your hand. Continue to clean the hand with soap and water as previously instructed. Continue to use a bacitracin to the area and redress the hand for at least the first 5 days Return to ED to have the sutures removed as previously instructed Return to the ED right away for any increase in redness swelling or pain. Continue to elevate the injury as previously instructed FOLLOW-UP CARE: If you have been referred to a physician for follow-up care, call the physician s office for an appointment as you were instructed or within the next two days. If you experience worsening or a significant change in your symptoms, notify the physician immediately or return to the Emergency Department at any time for re-evaluation. Forms: Elevated Blood Pressure, Smoking Cessation Education
== END 2017-06-02 12:50 | disposition home or self-care (01) ==
LOC: ER 11:38
DX: S61.211D Laceration without foreign body of left index finger without damage to nail, subsequent encounter (principal); X58.XXXD Exposure to other specified factors, subsequent encounter; Z90.710 Acquired absence of both cervix and uterus; E78.00 Pure hypercholesterolemia, unspecified; I10 Essential (primary) hypertension
CPT/HCPCS: 99281

== ENCOUNTER 2017-06-28 20:43 | Emergency (ER) | payer SELFPAY ==
[2017-06-28 21:59] LABS: APPEARANCE,URINE CLEAR; BILIRUBIN,URINE NEGATIVE (NEGATIVE); COLOR,URINE STRAW; GLUCOSE, URINE NEGATIVE (NEGATIVE); KETONES,URINE NEGATIVE (NEGATIVE); LEUKOCYTE ESTERASE,URINE NEGATIVE (NEGATIVE); NITRITE,URINE NEGATIVE (NEGATIVE); PROTEIN,URINE NEGATIVE (NEGATIVE); URINE SPECIFIC GRAVITY 1.005; UROBILINOGEN,URINE NEGATIVE mg/dL (<2.0)
--- NOTE | 2017-06-28 23:16 | RADIOLOGY REPORT (SQ) ---
EXAM DESCRIPTION: T SPINE AP/LAT COMPLETED DATE/TIME: 06/28/2017 10:52 pm REASON FOR STUDY: pain x6 weeks COMPARISON: None. NUMBER OF VIEWS: Two views. TECHNIQUE: AP and lateral radiographic images acquired of the thoracic spine. LIMITATIONS: None. FINDINGS: MINERALIZATION: Normal. ALIGNMENT: Normal. No scoliosis. VERTEBRAE: No fracture or bone lesion. Maintained height, normal segmentation. DISCS: Mild age related disc space narrowing -small osteophytes. HARDWARE: None in the spine. MEDIASTINUM AND SOFT TISSUES: Normal heart size and aortic contour. No soft tissue abnormality. VISUALIZED LUNG KEBEDE: Clear. OTHER: No other significant finding. IMPRESSION: No acute findings. TECHNICAL DOCUMENTATION: JOB ID: [id number] [employer]- All Rights Reserved Reading location - IP/workstation name: [email or web address]
--- NOTE | 2017-06-28 23:21 | ER Document Report ---
HPI - HPI Pain Level: 3 Context: Patient is a 47-year-old female presents emergency department the chief complaint of thoracic and low back pain for the past 6 weeks. Patient states she has a history of degenerative disc disease in her thoracic and lumbar spine that she follows with pain management where she takes 50 mg oxycodone, Flexeril and Celebrex on a daily basis. She states that her pain has been intermittent over the past 6 weeks and occasionally she will have a sharp ache that is fleeting. She denies any fevers or chills, pyuria, hematuria, urinary urgency pyuria. She has not followed up with her primary care provider regarding this. Denies any urinary/stool incontinence, saddle anesthesia. - REPRODUCTIVE Reproductive: DENIES: : - DERM Skin Color: Normal, [place] Past Medical History - Social History Smoking Status: Former Smoker Chew tobacco use (# tins/day): No Frequency of alcohol use: None Drug Abuse: None Family History: Arthritis, CAD, DM, Hyperlipidemia, Hypertension, Malignancy. denies: COPD, CVA Patient has suicidal ideation: No Patient has homicidal ideation: No - Past Medical History Cardiac Medical History: Reports: Hx Hypercholesterolemia, Hx Hypertension Pulmonary Medical History: Reports: Hx Asthma, Hx COPD Renal/ Medical History: Denies: Hx Peritoneal Dialysis GI Medical History: Reports: Hx Gastroesophageal Reflux Disease Psychiatric Medical History: Reports: Hx Anxiety, Hx Attention Deficit Hyperactivity Disorder, Hx Bipolar Disorder, Hx Depression Past Surgical History: Reports: Hx Appendectomy, Hx Hysterectomy - Immunizations Hx Diphtheria, Pertussis, Tetanus Vaccination: Yes Hx Pneumococcal Vaccination: 12/11/14 Vertical Provider Document - CONSTITUTIONAL Agree With Documented VS: Yes Notes: PHYSICAL EXAM GENERAL: Alert, interacts well. HEAD: Normocephalic, atraumatic. EYES: Pupils equal, round, and reactive to light. Extraocular movements intact. ENT: Oral mucosa moist, tongue midline. NECK: Full range of motion. Supple. Trachea midline. LUNGS: Clear to auscultation bilaterally, no wheezes, rales, or rhonchi. No respiratory distress. HEART: Regular rate and rhythm. No murmurs, gallops, or rubs. ABDOMEN: Soft, nondistended, nontender. No guarding, rebound, or rigidity.. Bowel sounds present in all 4 quadrants. EXTREMITIES: Moves all 4 extremities spontaneously. No edema, radial and dorsalis pedis pulses 2/4 bilaterally. No cyanosis. Back: Tenderness along the thoracic and paralumbar musculature with pain reproducible palpation without any central spinous process step-offs, tenderness or deformities. 5 out of 5 strength both distally and proximally bilateral lower extremities. Sensation grossly intact in the bilateral lower extremities. Patient is able to ambulate without difficulty. NEUROLOGICAL: Alert and oriented x4. Normal speech. PSYCH: Normal affect, normal mood. SKIN: Warm, dry, normal turgor. No rashes or lesions noted. - INFECTION CONTROL TRAVEL OUTSIDE OF THE [place] IN LAST 30 DAYS: No Course - Re-evaluation Re-evalutation: 06/28/17 23:26 Patient is a 47-year-old female who is hemodynamically stable, no acute distress and afebrile. The patient presents with chronic low back pain without signs of spinal cord compression, cauda equina syndrome, infection, aneurysm, or other serious etiology. The patient is neurologically intact. Given the extremely low risk of these diagnoses further testing and evaluation for these possibilities does not appear to be indicated at this time. The patient has been instructed to return if the symptoms worsen or change in any way. - Vital Signs Vital signs: Temp Pulse Resp BP Pulse Ox 99.0 F 96 18 124/74 95 06/28/17 20:50 06/28/17 20:50 06/28/17 20:50 06/28/17 20:50 06/28/17 20:50 Discharge - Discharge Clinical Impression: Low back pain Qualifiers: Chronicity: chronic Back pain laterality: bilateral Sciatica presence: without sciatica Qualified Code(s): M54.5 - Low back pain Condition: Good Disposition: HOME, SELF-CARE Additional Instructions: LOW BACK PAIN: Three out of every four people will have an episode of disabling back pain during their lifetime. Most commonly the pain is due to straining of the muscles and ligaments in the low back. Usual treatment includes: (1) Rest on a firm surface. Avoid lying on your stomach. (2) Ice pack the painful area. After a few days, gentle heat may be used intermittently to relax the area, or ice packs can be continued. (3) Medication may be needed -- muscle relaxers and antiinflammatory medicines are commonly used. (4) As the back improves, exercises are prescribed to strengthen the back and abdominal muscles. Your doctor will advise you on the proper care for your back at each stage in your recovery. You may be better in a few days -- or healing may take several weeks. If new symptoms of a "herniated disc" (radiation of pain, numbness, or tingling down the back of the leg or weakness in the leg) occur, you should be re-examined. Further testing may be necessary. MUSCLE RELAXERS: Muscle relaxing medications are usually prescribed for acute muscle spasm or injury to the neck and back. They are often combined with antiinflammatory pain medication for increased relief. You may stop the muscle relaxer when the pain and stiffness have improved. Start the medication again if spasms recur. Muscle relaxers may cause drowsiness, especially with the first dose. Do not operate machinery or drive while under the effects of the medication. Most muscle relaxers last up to 24 hours. Do not combine the medication with alcohol. ICE PACKS: Apply ice packs frequently against the painful area. Many different schedules are recommended, such as "20 minutes on, 20 minutes off" or "one hour ice, two hours rest." If you need to work, you may need to go longer between ice treatments. You should plan to have the area ice packed AT LEAST one fourth of the time. The ice should be applied over the wrap, tape, or splint, or over a layer of cloth -- not directly against the skin. Some ice bags have a built-in cloth and can be put directly on the skin. WARM PACKS: After approximately two days, apply gentle heat (such as a heating pad or hot water bottle) for about 20 to 30 minutes about every two hours -- at least four times daily. Warmth and elevation will help you make a more rapid recovery , and will ease the pain considerably. Do not use HOT heat, and never apply heat for longer than 30 minutes. The continuous heat can invisibly damage skin and muscles -- even when no burn is seen on the surface. Damaged muscles can make you MORE sore. FOLLOW-UP CARE: If you have been referred to a physician for follow-up care, call the physician s office for an appointment as you were instructed or within the next two days. If you experience worsening or a significant change in your symptoms, notify the physician immediately or return to the Emergency Department at any time for re-evaluation. Referrals: MARQUISE AVLLE PA-C [NO LOCAL MD] - Follow up in 1 week
[2017-06-28 23:44] VITALS: BP 116/71
== END 2017-06-28 23:45 | disposition home or self-care (01) ==
LOC: ER 20:43
DX: M54.5 Low back pain (principal); M51.34 Other intervertebral disc degeneration, thoracic region; M51.36 Other intervertebral disc degeneration, lumbar region; Z79.899 Other long term (current) drug therapy; Z87.891 Personal history of nicotine dependence; I10 Essential (primary) hypertension; J44.9 Chronic obstructive pulmonary disease, unspecified
CPT/HCPCS: 72070; 81001; 99284

== ENCOUNTER 2018-01-17 01:01 | Emergency (ER) | payer SELFPAY ==
[2018-01-17 01:23] VITALS: BP 105/55
[2018-01-17] MEDS ORDERED: PREDNISONE 20 MG TABLET PO ONE (02:02)
[2018-01-17] MEDS ORDERED: IPRATROPIUM/ALBUTEROL 0.5-2.5 MG/3 ML AMPUL NEB ONE (02:02)
[2018-01-17] MEDS ORDERED: AMOXICILLIN TR/POT CLAVULANATE 500-125 MG TAB PO ONE (02:03)
--- NOTE | 2018-01-17 02:04 | ER Document Report ---
HPI - HPI Patient complains to provider of: Cough and congestion Pain Level: 2 Context: Patient is a 47-year-old female presenting to the emergency department complaining of cough and congestion for the last 2 days. Patient denies any fever, chest pain, nausea, vomiting, diarrhea or dysuria, abdominal pain. Patient states she has COPD and does take albuterol at home states last albuterol administration was around 2100 patient also states 2 days ago she was trying to break up her dogs from fighting and sustained a bite to her right upper arm and her left lower leg. Patient states they are her dogs and they are up-to-date on vaccines. Patient also states her last tetanus was within the last [address] [facility]. Medical history: ADHD, bipolar, depression, anxiety, degenerative disc disease, COPD Medications: Latuda, trazodone, Celexa, Percocet, albuterol Allergies: None Patient does admit to cigarette smoking, denies EtOH use or illicit drug use. - CONSTITUTIONAL Constitutional: DENIES: Fever, Chills - EENT EENT: DENIES: Sore Throat, Ear Pain, Eye problems - NEURO Neurology: DENIES: Headache, Weakness, Vision blurred, Dizzinesss / Vertigo - CARDIOVASCULAR Cardiovascular: REPORTS: Chest pain - RESPIRATORY Respiratory: REPORTS: Trouble Breathing - ?bronchitis, Coughing - GASTROINTESTINAL Gastrointestinal: DENIES: Abdominal Pain, Black / Bloody Stools - URINARY Urinary: DENIES: Dysuria, Urgency, Frequency - REPRODUCTIVE Reproductive: DENIES: : - MUSCULOSKELETAL Musculoskeletal: REPORTS: Extremity pain - R shoulder/L leg Past Medical History - General Information source: Patient - Social History Smoking Status: Current Every Day Smoker Lives with: Family Family History: Arthritis, CAD, DM, Hyperlipidemia, Hypertension, Malignancy. denies: COPD, CVA Patient has suicidal ideation: No Patient has homicidal ideation: No - Past Medical History Cardiac Medical History: Reports: Hx Hypercholesterolemia, Hx Hypertension Pulmonary Medical History: Reports: Hx Asthma, Hx COPD Renal/ Medical History: Denies: Hx Peritoneal Dialysis GI Medical History: Reports: Hx Gastroesophageal Reflux Disease Psychiatric Medical History: Reports: Hx Anxiety, Hx Attention Deficit Hyperactivity Disorder, Hx Bipolar Disorder, Hx Depression Past Surgical History: Reports: Hx Appendectomy, Hx Hysterectomy - Immunizations Hx Diphtheria, Pertussis, Tetanus Vaccination: Yes Hx Pneumococcal Vaccination: 12/11/14 Vertical Provider Document - CONSTITUTIONAL Agree With Documented VS: Yes Notes: GENERAL: Alert, interacts well. No acute distress. HEAD: Normocephalic, atraumatic. EYES: Pupils equal, round, and reactive to light. Extraocular movements intact. ENT: Oral mucosa moist, tongue midline. Nasal turbinates within normal limits. TM's intact, not erythematous, nonbulging NECK: Full range of motion. Supple. Trachea midline. No lymphadenopathy appreciated LUNGS: Inspiratory expiratory wheeze heard bilaterally all navarrete, no rales, or rhonchi. No respiratory distress, able to speak in full sentences HEART: Regular rate and rhythm. No murmur ABDOMEN: Soft, non-tender. Non-distended. Bowel sounds present in all 4 quadrants. EXTREMITIES: Moves all 4 extremities spontaneously. No edema, normal radial and dorsalis pedis pulses bilaterally. No cyanosis. BACK: no cervical, thoracic, lumbar midline tenderness. No saddle anesthesia, normal distal neurovascular exam. NEUROLOGICAL: Alert and oriented x3. Normal speech. cranial nerves II through XII grossly intact PSYCH: Normal affect, normal mood. SKIN: Warm, dry, normal turgor. Ecchymosis noted right upper arm with a already healing puncture wound noted in the center of the ecchymosis. Ecchymosis measures 10 cm x 10 cm irregular pattern. Ecchymosis also noted posterior aspect of left lower leg behind knee with another puncture wound, well-healing. Minor erythema around puncture wound no active discharge, no fluctuance or induration noted. - INFECTION CONTROL TRAVEL OUTSIDE OF THE [place] IN LAST 30 DAYS: No Course - Re-evaluation Re-evalutation: 01/17/18 03:02 Upon reexamination patient lung sounds are CTA, continues without respiratory distress. Patient states "I feel like a new person." Discussed need to take at home albuterol every 4 hours for the next 24 hours and then as needed for respiratory distress. Also discussed need for steroids and oral antibiotics for dog bite. Patient states she has "plenty of albuterol " At home and does not need a refill. Close return precautions discussed. - Vital Signs Vital signs: Temp Pulse Resp BP Pulse Ox 98.4 F 86 18 105/55 L 95 01/17/18 01:22 01/17/18 01:22 01/17/18 01:22 01/17/18 01:22 01/17/18 01:22 Discharge - Discharge Clinical Impression: COPD exacerbation Upper respiratory infection Qualifiers: URI type: unspecified URI Qualified Code(s): J06.9 - Acute upper respiratory infection, unspecified Dog bite Qualifiers: Encounter type: initial encounter Qualified Code(s): W54.0XXA - Bitten by dog, initial encounter Condition: Stable Instructions: Upper Respiratory Illness ([facility]), Viral Syndrome ([facility]), Chronic Obstructive Lung Disease ([facility]), Animal Bites ([facility]) Additional Instructions: As we discussed you have been seen and treated in the emergency department for an upper respiratory infection, dog bite, COPD exacerbation. Please take prescription medications as prescribed. Also please take your albuterol inhaler every 4 hours for the next 24 hours. After that take it as needed. Please return to the emergency room for any other concerning symptom Prescriptions: Amox Tr/Potassium Clavulanate [Augmentin 875-125 Tablet] 1 tab PO BID 10 Days tablet Prednisone [Deltasone 20 mg Tablet] 3 tab PO DAILY 5 Days tablet Referrals: MARQUIES VALLE PA-C [Primary Care Provider] - Follow up as needed
== END 2018-01-17 04:05 | disposition home or self-care (01) ==
LOC: ER 01:01
DX: J44.1 Chronic obstructive pulmonary disease with (acute) exacerbation (principal); J06.9 Acute upper respiratory infection, unspecified; S41.151A Open bite of right upper arm, initial encounter; S81.852A Open bite, left lower leg, initial encounter; W54.0XXA Bitten by dog, initial encounter; Y93.K9 Activity, other involving animal care; R07.9 Chest pain, unspecified; I10 Essential (primary) hypertension; R05 Cough; F17.210 Nicotine dependence, cigarettes, uncomplicated; F41.9 Anxiety disorder, unspecified; F31.9 Bipolar disorder, unspecified; Z79.899 Other long term (current) drug therapy; Z79.891 Long term (current) use of opiate analgesic
CPT/HCPCS: 94640; 99283; J7512; J7620

== ENCOUNTER → 2018-03-20 | Outpatient (CLI) | payer MEDICAID ==
--- NOTE | 2018-03-20 10:45 | WOMENS IMAGING REPORT ---
EXAM DESCRIPTION: 3D SCREENING MAMMO BILAT COMPLETED DATE/TIME: 03/20/2018 10:17 am REASON FOR STUDY: ROUTINE BILATERAL SCREENING;Z12.31 Z12.31 ENCNTR SCREEN MAMMOGRAM FOR MALIGNANT N EOPLASM OF JOVAN COMPARISON: 07/27/2016 and 01/09/2015. TECHNIQUE: Standard craniocaudal and mediolateral oblique views of each breast recorded using digita l acquisition and breast tomosynthesis. LIMITATIONS: None. FINDINGS: No masses, calcifications or architectural distortion. No areas of suspicion. Read with the assistance of CAD. .[facility] - R2 Cenova Version 1.3 .[facility] - R2 Cenova Version 1.3 .[facility] - R2 Cenova Version 2.4 .[facility] - R2 Cenova Version 2.4 .[facility] - R2 Grooming Assistant Version 9.2 IMPRESSION: NORMAL MAMMOGRAM. BIRADS 1. BREAST DENSITY: a. The breasts are almost entirely fatty. BIRAD: 1 NEGATIVE RECOMMENDATION: ROUTINE SCREENING COMMENT: The patient has been notified of the results by letter per MQSA requirements. Additional no tification policies are in place for contacting patient with suspicious or incomplete findings. Quality ID #[id number]: The [employer] recommends an annual screening mammogram for women aged 40 years or over. This facility utilizes a reminder system to ensure that all patients receive reminder letters, and/or direct phone calls for appointments. This includes reminders for routine scr eening mammograms, diagnostic mammograms, or other Breast Imaging Interventions when appropriate. Th is patient will be placed in the appropriate reminder system. The [employer] (ACR) has developed recommendations for screening MRI of the breast s in certain patient populations, to be used in conjunction with mammography. Breast MRI surveillanc e may be appropriate for women with more than 20% lifetime risk of developing breast cancer as deter mined by genetic testing, significant family history of the disease, or history of mantle radiation f or Hodgkins Disease. ACR Practice Guidelines 2008. DBT Technology DBT is a type of tomographic mammography. With conventional mammography, overlapping breast tissue ma y make lesions difficult to detect, even with good compression. DBT uses an x-ray tube that rotates a round the breast, taking images at different angles. These images are then combined to create thin sl ices of the breast that the radiologist can view as a 3D reconstruction. The [employer] unit can perform full-field digital mammograms (2D imaging); or DBT (3D imaging); or both, in a combination mode that quickly performs both the mammogram and the tomosynthesis scan while the breast is still compressed. PQRS 6045F: Fluoroscopic imaging is not utilized for breast tomosynthesis. TECHNICAL DOCUMENTATION: FINDING NUMBER: (1) ASSESSMENT: (1) JOB ID: [id number] [employer]- All Rights Reserved Reading location - IP/workstation name: [email or web address]
== END ==
LOC: WI 09:51
PROVIDERS: ATTEND Physician Assistant
DX: Z12.31 Encounter for screening mammogram for malignant neoplasm of breast (principal)
CPT/HCPCS: 77063; 77067

== ENCOUNTER 2018-07-28 15:25 | Emergency (ER) | payer MEDICAID ==
--- NOTE | 2018-07-28 15:47 | ER Document Report ---
ED Medical Screen (RME) - General Chief Complaint: Dizziness Stated Complaint: DIZZINESS Time Seen by Provider: 07/28/18 15:44 Primary Care Provider: MARQUISE VALLE PA-C [Primary Care Provider] - Follow up as needed Mode of Arrival: Ambulatory Information source: Patient Notes: 48-year-old female presented to ED for complaint of dizziness. She states she has been dizzy for at least a month now. She states she went to her primary care doctor who told her that she might be a little dehydrated she need to be more red meat and drink more fluids. States yesterday the dizziness got much worse now she gets dizzy just moving her eyeballs or turn her head. Patient is alert oriented respirations regular and unlabored speaking in full sentences walks with even steady gait. She does have a history of ADHD, bipolar, anxiety, depression, insomnia, and degenerative disc disease. She has had a history of a hysterectomy as her only surgery. I have greeted and performed a rapid initial assessment of this patient. A comprehensive ED assessment and evaluation of the patient, analysis of test results and completion of medical decision making process will be conducted by an additional ED providers. Dictation of this chart was performed using voice recognition software; therefore, there may be some unintended grammatical errors. TRAVEL OUTSIDE OF THE [place] IN LAST 30 DAYS: No - Related Data Allergies/Adverse Reactions: No Known Allergies Allergy (Verified 07/28/18 15:27) Past Medical History - Social History Chew tobacco use (# tins/day): No Frequency of alcohol use: None Drug Abuse: None - Past Medical History Cardiac Medical History: Reports: Hx Hypercholesterolemia, Hx Hypertension Pulmonary Medical History: Reports: Hx Asthma, Hx COPD Renal/ Medical History: Denies: Hx Peritoneal Dialysis GI Medical History: Reports: Hx Gastroesophageal Reflux Disease Psychiatric Medical History: Reports: Hx Anxiety, Hx Attention Deficit Hyperactivity Disorder, Hx Bipolar Disorder, Hx Depression Past Surgical History: Reports: Hx Appendectomy, Hx Hysterectomy - Immunizations Hx Diphtheria, Pertussis, Tetanus Vaccination: Yes Physical Exam - Vital signs Vitals: Temp Pulse Resp BP Pulse Ox 98.7 F 100 18 132/77 H 95 07/28/18 15:37 07/28/18 15:37 07/28/18 15:37 07/28/18 15:37 07/28/18 15:37 Course - Vital Signs Vital signs: Temp Pulse Resp BP Pulse Ox 98.7 F 100 18 132/77 H 95 07/28/18 15:37 07/28/18 15:37 07/28/18 15:37 07/28/18 15:37 07/28/18 15:37 Doctor's Discharge - Discharge Referrals: MARQUISE VALLE PA-C [Primary Care Provider] - Follow up as needed
[2018-07-28 16:18] LABS: ABSOLUTE BASOPHILS # (AUTO) 0.1 10^3/uL (0.0-0.2); ABSOLUTE EOSINOPHILS # (AUTO) 0.1 10^3/uL (0.0-0.6); ABSOLUTE MONOCYTES (AUTO) 0.7 10^3/uL (0.1-1.4); ABSOLUTE NEUT (AUTO) 5.7 10^3/uL (1.7-8.2); BASOPHILS % (AUTO) 0.7 % (0-2); EOSINOPHILS % (AUTO) 1.1 % (0-6); HEMOGLOBIN 16.7 g/dL (12.0-15.5); LYMPHOCYTES % (AUTO) 38.2 % (13-45); MEAN CORPUSCULAR HEMOGLOBIN 34.1 pg (27.0-33.4); MEAN CORPUSCULAR HGB CONC 34.8 g/dL (32.0-36.0); MEAN CORPUSCULAR VOLUME 98 fl (80-97); MONOCYTES % (AUTO) 6.5 % (3-13); PLATELET COUNT 231 10^3/uL (150-450); RED CELL DISTRIBUTION WIDTH 15.4 % (11.5-14.0); SEGMENTED NEUTROPHILS % (AUTO) 53.5 % (42-78); TOTAL CELLS COUNTED % (AUTO) 100 %; WHITE BLOOD COUNT 10.6 10^3/uL (4.0-10.5)
[2018-07-28 16:20] LABS: APPEARANCE,URINE SLIGHTLY-CLOUDY; BILIRUBIN,URINE NEGATIVE (NEGATIVE); COLOR,URINE YELLOW; GLUCOSE, URINE NEGATIVE (NEGATIVE); KETONES,URINE NEGATIVE (NEGATIVE); LEUKOCYTE ESTERASE,URINE NEGATIVE (NEGATIVE); NITRITE,URINE NEGATIVE (NEGATIVE); PROTEIN,URINE NEGATIVE (NEGATIVE); URINE SPECIFIC GRAVITY 1.016; UROBILINOGEN,URINE NEGATIVE mg/dL (<2.0)
[2018-07-28 16:35] LABS: ALANINE AMINOTRANSFERASE 25 U/L (9-52); ALBUMIN 4.1 g/dL (3.5-5.0); ALKALINE PHOSPHATASE 69 U/L (38-126); ANION GAP 9 (5-19); ASPARTATE AMINO TRANSFERASE 16 U/L (14-36); BILIRUBIN,DIRECT 0.2 mg/dL (0.0-0.4); BILIRUBIN,TOTAL 0.4 mg/dL (0.2-1.3); BLOOD UREA NITROGEN 6 mg/dL (7-20); CALCIUM 9.7 mg/dL (8.4-10.2); CARBON DIOXIDE 35 mmol/L (22-30); CHLORIDE 97 mmol/L (98-107); GLUCOSE 73 mg/dL (75-110); POTASSIUM 3.8 mmol/L (3.6-5.0); SODIUM 140.5 mmol/L (137-145)
[2018-07-28 16:45] LABS: URINE AMPHETAMINES SCREEN NEGATIVE; URINE BARBITURATES SCREEN NEGATIVE; URINE BENZODIAZEPINES SCREEN NEGATIVE; URINE COCAINE SCREEN NEGATIVE; URINE MARIJUANA (THC) SCREEN NEGATIVE; URINE METHADONE SCREEN NEGATIVE; URINE PHENCYCLIDINE SCREEN NEGATIVE
[2018-07-28 16:54] LABS: CREATINE KINASE MB < 0.22 ng/mL (<4.55); TROPONIN I < 0.012 ng/mL
[2018-07-28] MEDS ORDERED: MECLIZINE HCL 25 MG TABLET PO ONE (17:33)
--- NOTE | 2018-07-28 17:33 | ER Document Report ---
ED Dizziness/Weakness - General Chief Complaint: Dizziness Stated Complaint: DIZZINESS Time Seen by Provider: 07/28/18 15:44 Primary Care Provider: MARQUISE VALLE PA-C [Primary Care Provider] - Follow up as needed Mode of Arrival: Ambulatory Notes: RMYumiko Note: 48-year-old female presented to ED for complaint of dizziness. She states she has been dizzy for at least a month now. She states she went to her primary care doctor who told her that she might be a little dehydrated she need to be mo re red meat and drink more fluids. States yesterday the dizziness got much worse now she gets dizzy just moving her eyeballs or turn her head. Patient is alert oriented respirations regular and unlabored speaking in full sentences walks with even steady gait. She does have a history of ADHD, bipolar, anxiety, depression, insomnia, and degenerative disc disease. She has had a history of a hysterectomy as her only surgery. TRAVEL OUTSIDE OF THE [place] IN LAST 30 DAYS: No - Related Data Allergies/Adverse Reactions: No Known Allergies Allergy (Verified 07/28/18 15:27) Past Medical History - General Information source: Patient - Social History Smoking Status: Current Every Day Smoker Chew tobacco use (# tins/day): No Frequency of alcohol use: None Drug Abuse: None Family History: Arthritis, CAD, DM, Hyperlipidemia, Hypertension, Malignancy Patient has suicidal ideation: No Patient has homicidal ideation: No - Past Medical History Cardiac Medical History: Reports: Hx Hypercholesterolemia, Hx Hypertension Pulmonary Medical History: Reports: Hx Asthma, Hx COPD Renal/ Medical History: Denies: Hx Peritoneal Dialysis GI Medical History: Reports: Hx Gastroesophageal Reflux Disease Psychiatric Medical History: Reports: Hx Anxiety, Hx Attention Deficit Hyperactivity Disorder, Hx Bipolar Disorder, Hx Depression Past Surgical History: Reports: Hx Appendectomy, Hx Hysterectomy - Immunizations Hx Diphtheria, Pertussis, Tetanus Vaccination: Yes Hx Pneumococcal Vaccination: 12/11/14 Review of Systems - Review of Systems Constitutional: Other - Dizziness EENT: denies: Ear pain Cardiovascular: denies: Chest pain, Palpitations Respiratory: denies: Short of breath Gastrointestinal: denies: Abdominal pain, Nausea, Vomiting Genitourinary: denies: Dysuria Female Genitourinary: No symptoms reported Musculoskeletal: No symptoms reported Skin: No symptoms reported Hematologic/Lymphatic: No symptoms reported Neurological/Psychological: denies: Weakness, Headaches, Numbness Physical Exam - Vital signs Vitals: Temp Pulse Resp BP Pulse Ox 98.7 F 100 18 132/77 H 95 07/28/18 15:37 07/28/18 15:37 07/28/18 15:37 07/28/18 15:37 07/28/18 15:37 - Notes Notes: PHYSICAL EXAMINATION: GENERAL: Well-appearing, well-nourished and in no acute distress. HEAD: Atraumatic, normocephalic. EYES: Pupils equal round and reactive to light, extraocular movements intact, conjunctiva are normal. ENT: Nares patent, oropharynx clear without exudates. Moist mucous membranes. NECK: Normal range of motion, supple without lymphadenopathy LUNGS: Breath sounds clear to auscultation bilaterally and equal. No wheezes rales or rhonchi. HEART: Regular rate and rhythm without murmurs ABDOMEN: Soft, nontender, nondistended abdomen. No guarding, no rebound. No masses appreciated. Female : deferred Musculoskeletal: Normal range of motion, no pitting or edema. No cyanosis. NEUROLOGICAL: Cranial nerves grossly intact. Normal speech, normal gait. Normal sensory, motor exams PSYCH: Normal mood, normal affect. SKIN: Warm, Dry, normal turgor, no rashes or lesions noted. Course - Re-evaluation Re-evalutation: Patient appears well, nontoxic is alert, oriented and answering all questions appropriately. Her physical examination is unremarkable. Her work-up today is unremarkable. EKG was reviewed by me,, shows a sinus rhythm rate of 88, QTc 480, normal axis, no ST segment elevations or depressions to suggest ischemia. Labs as recorded, CBC, CMP, urinalysis are unremarkable. Troponin is negative. Urine drug screen is positive for marijuana but otherwise no abnormal findings. Patient symptoms are consistent with vertigo as she states the room spins around her when she feels dizzy. Patient will be d/c home with meclizine, will f/u with PCP next week. - Vital Signs Vital signs: Temp Pulse Resp BP Pulse Ox 98.6 F 92 16 128/72 H 98 07/28/18 18:23 07/28/18 18:23 07/28/18 18:23 07/28/18 18:23 07/28/18 18:23 - Laboratory Result Diagrams: 07/28/18 15:58 07/28/18 15:58 Laboratory results interpreted by me: 07/28/18 07/28/18 15:58 15:58 WBC 10.6 H Hgb 16.7 H Hct 48.0 H MCV 98 H MCH 34.1 H RDW 15.4 H Chloride 97 L Carbon Dioxide 35 H BUN 6 L Glucose 73 L Discharge - Discharge Clinical Impression: Vertigo Condition: Stable Disposition: HOME, SELF-CARE Additional Instructions: Vertigo You have experienced an episode of vertigo -- a whirling dizziness which may be accompanied by nausea and vomiting or staggering. Vertigo is often caused by an irritation of the inner ear, in which case it is called labyrinthitis. It can also be a symptom of a degenerating inner ear, nerve damage, or brain injury. Your physician has evaluated you to determine whether any further testing is necessary. Vertigo is often treated with dramamine or meclizine. These medications ar e helpful, but stronger medication may be needed if you are vomiting. Rest in bed. You should not drive or operate machinery until completely better. It may take one to three weeks for recovery. If there are new symptoms, such as decreased hearing or vision, severe headache, weakness or faintness, or confusion, call the physician. Please take medication as prescribed. Follow-up with your primary care provider this week. Return to the emergency department with any new or worsening symptoms. Referrals: MARQUISE VALLE PA-C [Primary Care Provider] - Follow up as needed
[2018-07-28 18:33] VITALS: BP 128/72
--- NOTE | 2018-07-28 22:07 | EKG REPORT ---
SEVERITY:- BORDERLINE ECG - SINUS RHYTHM BORDERLINE T ABNORMALITIES, ANTERIOR LEADS : Confirmed by: Chapin Young MD 28-Jul-2018 22:06:09
== END 2018-07-28 18:22 | disposition home or self-care (01) ==
LOC: ER 15:25
DX: R42 Dizziness and giddiness (principal); I10 Essential (primary) hypertension; J44.9 Chronic obstructive pulmonary disease, unspecified
CPT/HCPCS: 36415; 80053; 80307; 81001; 82553; 82962; 84484; 84703; 85025; 93005; 93010; 99284

== ENCOUNTER 2018-08-07 16:10 | Emergency (ER) | payer MEDICAID ==
[2018-08-07 16:55] VITALS: BP 125/73
--- NOTE | 2018-08-07 17:26 | ER Document Report ---
ED Medical Screen (RME) - General Chief Complaint: Dizziness Stated Complaint: DIZZINESS Time Seen by Provider: 08/07/18 17:23 Primary Care Provider: MARQUISE VALLE PA-C [Primary Care Provider] - Follow up as needed Mode of Arrival: Ambulatory Information source: Patient Notes: 48-year-old female presents to ED for complaint of nausea vomiting dizziness and blurred vision. She states this is been going on for months. She states it happened again today and she almost passed out. She states she turned very pale when this happens. She does have a history of asthma COPD bipolar anxiety GERD degenerative disc disease and she had a hysterectomy and an appendectomy. She states she still smokes 4 cigarettes a day but this is down from a pack a day. Patient is alert oriented respirations regular and unlabored speaking in full sentences walks with even steady gait. Patient states she went and followed up with her primary care doctor they did a consult for ENT but the ENT has not called back yet. I have greeted and performed a rapid initial assessment of this patient. A comprehensive ED assessment and evaluation of the patient, analysis of test results and completion of medical decision making process will be conducted by an additional ED providers. TRAVEL OUTSIDE OF THE [place] IN LAST 30 DAYS: No - Related Data Allergies/Adverse Reactions: No Known Allergies Allergy (Verified 08/07/18 16:45) Past Medical History - Past Medical History Cardiac Medical History: Reports: Hx Hypercholesterolemia, Hx Hypertension Pulmonary Medical History: Reports: Hx Asthma, Hx COPD Renal/ Medical History: Denies: Hx Peritoneal Dialysis GI Medical History: Reports: Hx Gastroesophageal Reflux Disease Psychiatric Medical History: Reports: Hx Anxiety, Hx Attention Deficit Hyperactivity Disorder, Hx Bipolar Disorder, Hx Depression Past Surgical History: Reports: Hx Appendectomy, Hx Hysterectomy - Immunizations Hx Diphtheria, Pertussis, Tetanus Vaccination: Yes Physical Exam - Vital signs Vitals: Temp Pulse Resp BP Pulse Ox 99.2 F 105 H 18 125/73 93 08/07/18 16:52 08/07/18 16:52 08/07/18 16:52 08/07/18 16:52 08/07/18 16:52 Course - Vital Signs Vital signs: Temp Pulse Resp BP Pulse Ox 99.2 F 105 H 18 125/73 93 08/07/18 16:52 08/07/18 16:52 08/07/18 16:52 08/07/18 16:52 08/07/18 16:52 Doctor's Discharge - Discharge Referrals: MARQUISE VALLE PA-C [Primary Care Provider] - Follow up as needed
[2018-08-07 17:57] LABS: APPEARANCE,URINE SLIGHTLY-CLOUDY; BILIRUBIN,URINE NEGATIVE (NEGATIVE); COLOR,URINE YELLOW; GLUCOSE, URINE NEGATIVE (NEGATIVE); KETONES,URINE NEGATIVE (NEGATIVE); LEUKOCYTE ESTERASE,URINE NEGATIVE (NEGATIVE); NITRITE,URINE NEGATIVE (NEGATIVE); PROTEIN,URINE NEGATIVE (NEGATIVE); URINE SPECIFIC GRAVITY 1.009; UROBILINOGEN,URINE NEGATIVE mg/dL (<2.0)
[2018-08-07 18:01] LABS: ABSOLUTE BASOPHILS # (AUTO) 0.1 10^3/uL (0.0-0.2); ABSOLUTE EOSINOPHILS # (AUTO) 0.1 10^3/uL (0.0-0.6); ABSOLUTE LYMPHOCYTES (AUTO) 3.7 10^3/uL (0.5-4.7); ABSOLUTE MONOCYTES (AUTO) 0.9 10^3/uL (0.1-1.4); ABSOLUTE NEUT (AUTO) 9.7 10^3/uL (1.7-8.2); BASOPHILS % (AUTO) 0.5 % (0-2); EOSINOPHILS % (AUTO) 0.5 % (0-6); HEMATOCRIT 45.7 % (36.0-47.0); HEMOGLOBIN 15.5 g/dL (12.0-15.5); LYMPHOCYTES % (AUTO) 25.3 % (13-45); MEAN CORPUSCULAR HEMOGLOBIN 33.4 pg (27.0-33.4); MEAN CORPUSCULAR HGB CONC 33.8 g/dL (32.0-36.0); MEAN CORPUSCULAR VOLUME 99 fl (80-97); MONOCYTES % (AUTO) 6.6 % (3-13); PLATELET COUNT 280 10^3/uL (150-450); RED BLOOD COUNT 4.62 10^6/uL (3.72-5.28); RED CELL DISTRIBUTION WIDTH 15.1 % (11.5-14.0); SEGMENTED NEUTROPHILS % (AUTO) 67.1 % (42-78); TOTAL CELLS COUNTED % (AUTO) 100 %; WHITE BLOOD COUNT 14.4 10^3/uL (4.0-10.5)
[2018-08-07 18:19] LABS: ALANINE AMINOTRANSFERASE 18 U/L (9-52); ALBUMIN 4.4 g/dL (3.5-5.0); ALKALINE PHOSPHATASE 71 U/L (38-126); ANION GAP 11 (5-19); ASPARTATE AMINO TRANSFERASE 16 U/L (14-36); BILIRUBIN,DIRECT 0.2 mg/dL (0.0-0.4); BILIRUBIN,TOTAL 0.6 mg/dL (0.2-1.3); BLOOD UREA NITROGEN 11 mg/dL (7-20); CALCIUM 10.2 mg/dL (8.4-10.2); CARBON DIOXIDE 34 mmol/L (22-30); CHLORIDE 95 mmol/L (98-107); GLUCOSE 76 mg/dL (75-110); POTASSIUM 4.2 mmol/L (3.6-5.0); SODIUM 139.5 mmol/L (137-145); TOTAL PROTEIN 7.2 g/dL (6.3-8.2)
== END 2018-08-07 19:36 | disposition left against medical advice (07) ==
LOC: ER 16:10
DX: R42 Dizziness and giddiness (principal); R11.2 Nausea with vomiting, unspecified; H53.8 Other visual disturbances; E78.00 Pure hypercholesterolemia, unspecified; I10 Essential (primary) hypertension; Z90.710 Acquired absence of both cervix and uterus
CPT/HCPCS: 36415; 80053; 81001; 82553; 84703; 85025; 99281

== ENCOUNTER → 2018-11-09 | Outpatient (CLI) | payer MEDICAID ==
--- NOTE | 2018-11-09 12:45 | RADIOLOGY REPORT (SQ) ---
EXAM DESCRIPTION: LUMBAR SPINE COMPLETE COMPLETED DATE/TIME: 11/09/2018 12:26 pm REASON FOR STUDY: INTVRT DISC DISORDERS W RADICULOPATHY, LUMBOSACRAL REGION M51.17 INTVRT DISC DISO RDERS W RADICULOPATHY, LUMBOSACRAL RE COMPARISON: 11/11/2015 NUMBER OF VIEWS: Five views including obliques. TECHNIQUE: AP, lateral, oblique, and sacral radiographic images acquired of the lumbar spine. LIMITATIONS: None. FINDINGS: MINERALIZATION: Normal. SEGMENTATION: Normal. No transitional anatomy. ALIGNMENT: Normal. VERTEBRAE: Maintained height. No fracture or worrisome bone lesion. DISCS: Mild disc space narrowing at L4-L5. POSTERIOR ELEMENTS: Pedicles and facets are intact. No pars defect or posterior arch defects. HARDWARE: None in the spine. PARASPINAL SOFT TISSUES: Normal. PELVIS: Intact as visualized. No fractures or worrisome bone lesions. SI joints intact. OTHER: No other significant finding. IMPRESSION: Mild disc degenerative disease at L4-L5 with disc space narrowing. No other significant findings. TECHNICAL DOCUMENTATION: JOB ID: [id number] [employer]- All Rights Reserved Reading location - IP/workstation name: [email or web address]
== END ==
LOC: OD 11:40
PROVIDERS: ATTEND Nurse Practitioner Family
DX: M51.17 Intervertebral disc disorders with radiculopathy, lumbosacral region (principal)
CPT/HCPCS: 72110

== ENCOUNTER → 2018-12-12 | Outpatient (CLI) | payer MEDICAID ==
--- NOTE | 2018-12-12 12:05 | RADIOLOGY REPORT (SQ) ---
EXAM DESCRIPTION: VENOUS BILATERAL LOWER COMPLETED DATE/TIME: 12/12/2018 11:57 am REASON FOR STUDY: BLE NUMBNESS R20.0 ANESTHESIA OF SKIN COMPARISON: None. TECHNIQUE: Dynamic and static avalos scale and color images acquired of both lower extremity venous sy stems. Selected spectral images acquired with additional compression and augmentation maneuvers. Imag es stored on PACS. LIMITATIONS: None. FINDINGS: RIGHT LEG COMMON FEMORAL AND FEMORAL: Normal phasicity, compression and augmentation. No visualized echogenic m aterial on avalos scale. No defects on color images. POPLITEAL: Normal compression and augmentation. No visualized echogenic material on avalos scale. No de fects on color images. CALF VESSELS: Normal compression and augmentation. No visualized echogenic material on avalos scale. No defects on color image. GSV AND SSV: Normal compression. No visualized echogenic material on avalos scale. No defects on color images. ANY DEEP VENOUS INSUFFICIENCY: Not evaluated. ANY EVIDENCE OF POPLITEAL CYST: No. OTHER: No other significant finding. LEFT LEG COMMON FEMORAL AND FEMORAL: Normal phasicity, compression and augmentation. No visualized echogenic m aterial on avalos scale. No defects on color images. POPLITEAL: Normal compression and augmentation. No visualized echogenic material on avalos scale. No de fects on color images. CALF VESSELS: Normal compression and augmentation. No visualized echogenic material on avalos scale. No defects on color images. GSV AND SSV: Normal compression. No visualized echogenic material on avalos scale. No defects on color images. ANY DEEP VENOUS INSUFFICIENCY: Not evaluated. ANY EVIDENCE POPLITEAL CYST: No. OTHER: No other significant finding. IMPRESSION: NO EVIDENCE DVT OR SVT IN EITHER LEG. TECHNICAL DOCUMENTATION: JOB ID: [id number] [employer]- All Rights Reserved Reading location - IP/workstation name: [email or web address]
== END ==
LOC: SP 10:42
PROVIDERS: ATTEND Physician Assistant
DX: R20.0 Anesthesia of skin (principal)
CPT/HCPCS: 93970

== ENCOUNTER 2018-12-13 16:43 | Emergency (ER) | payer MEDICAID ==
--- NOTE | 2018-12-13 16:58 | ER Document Report ---
ED Medical Screen (RME) - General Chief Complaint: Blood Pressure Problem Stated Complaint: BLOOD PRESSURE ISSUE Time Seen by Provider: 12/13/18 16:54 Primary Care Provider: MARQUISE VALLE PA-C [Primary Care Provider] - Follow up as needed Mode of Arrival: Wheelchair Information source: Patient Notes: 38-year-old female presented to ED for complaint of elevated blood pressure and dizziness at home. She states she called the provider he sent her to the emergency room. She states that the doctor told her this was a new medicine new symptom is not due to the medicine he has put on for her hypertension. She states that her both numb and painful. Chest pain she denies any chest pain but states she does have some pain in the right side of her head this started today. She denies any shortness of breath but she states she is anxious because of the doctor told her that the elevated blood pressure is not from her medicine. States she smokes a half a pack a day but does not drink or use any drugs. I have greeted and performed a rapid initial assessment of this patient. A comprehensive ED assessment and evaluation of the patient, analysis of test results and completion of medical decision making process will be conducted by an additional ED providers. TRAVEL OUTSIDE OF THE [place] IN LAST 30 DAYS: No - Related Data Allergies/Adverse Reactions: No Known Allergies Allergy (Verified 08/07/18 16:45) Past Medical History - Past Medical History Cardiac Medical History: Reports: Hx Hypercholesterolemia, Hx Hypertension Pulmonary Medical History: Reports: Hx Asthma, Hx COPD Renal/ Medical History: Denies: Hx Peritoneal Dialysis GI Medical History: Reports: Hx Gastroesophageal Reflux Disease Psychiatric Medical History: Reports: Hx Anxiety, Hx Attention Deficit Hyperactivity Disorder, Hx Bipolar Disorder, Hx Depression Past Surgical History: Reports: Hx Appendectomy, Hx Hysterectomy - Immunizations Hx Diphtheria, Pertussis, Tetanus Vaccination: Yes Physical Exam - Vital signs Vitals: Temp Pulse Resp BP Pulse Ox 98.1 F 126 H 20 124/84 99 12/13/18 16:49 12/13/18 16:49 12/13/18 16:49 12/13/18 16:49 12/13/18 16:49 Course - Vital Signs Vital signs: Temp Pulse Resp BP Pulse Ox 98.1 F 126 H 20 124/84 99 12/13/18 16:49 12/13/18 16:49 12/13/18 16:49 12/13/18 16:49 12/13/18 16:49 Doctor's Discharge - Discharge Referrals: MARQUISE VALLE PA-C [Primary Care Provider] - Follow up as needed
[2018-12-13 18:03] LABS: ABSOLUTE BASOPHILS # (AUTO) 0.2 10^3/uL (0.0-0.2); ABSOLUTE EOSINOPHILS # (AUTO) 0.1 10^3/uL (0.0-0.6); ABSOLUTE LYMPHOCYTES (AUTO) 4.2 10^3/uL (0.5-4.7); ABSOLUTE MONOCYTES (AUTO) 0.7 10^3/uL (0.1-1.4); BASOPHILS % (AUTO) 1.2 % (0-2); EOSINOPHILS % (AUTO) 0.4 % (0-6); HEMATOCRIT 49.5 % (36.0-47.0); HEMOGLOBIN 16.7 g/dL (12.0-15.5); LYMPHOCYTES % (AUTO) 27.8 % (13-45); MEAN CORPUSCULAR HEMOGLOBIN 33.6 pg (27.0-33.4); MEAN CORPUSCULAR HGB CONC 33.8 g/dL (32.0-36.0); MEAN CORPUSCULAR VOLUME 99 fl (80-97); MONOCYTES % (AUTO) 4.7 % (3-13); PLATELET COUNT 274 10^3/uL (150-450); RED BLOOD COUNT 4.98 10^6/uL (3.72-5.28); RED CELL DISTRIBUTION WIDTH 14.1 % (11.5-14.0); SEGMENTED NEUTROPHILS % (AUTO) 65.9 % (42-78); TOTAL CELLS COUNTED % (AUTO) 100 %; WHITE BLOOD COUNT 15.2 10^3/uL (4.0-10.5)
[2018-12-13 18:10] LABS: INTERNATIONAL RATION (INR) 0.95; PROTHROMBIN TIME 12.6 SEC (11.4-15.4)
[2018-12-13 18:11] LABS: PARTIAL THROMBOPLASTIN TIME 30.9 SEC (23.5-35.8)
[2018-12-13 18:21] LABS: ALBUMIN 4.6 g/dL (3.5-5.0); ALKALINE PHOSPHATASE 71 U/L (38-126); ANION GAP 6 (5-19); ASPARTATE AMINO TRANSFERASE 22 U/L (14-36); BILIRUBIN,DIRECT 0.1 mg/dL (0.0-0.4); BILIRUBIN,TOTAL 0.6 mg/dL (0.2-1.3); BLOOD UREA NITROGEN 7 mg/dL (7-20); CALCIUM 10.1 mg/dL (8.4-10.2); CARBON DIOXIDE 30 mmol/L (22-30); CHLORIDE 103 mmol/L (98-107); CREATINE KINASE 127 U/L (30-135); GLUCOSE 99 mg/dL (75-110); POTASSIUM 3.8 mmol/L (3.6-5.0); TOTAL PROTEIN 7.6 g/dL (6.3-8.2)
[2018-12-13 18:42] LABS: CREATINE KINASE MB < 0.22 ng/mL (<4.55); TROPONIN I < 0.012 ng/mL
--- NOTE | 2018-12-13 18:55 | RADIOLOGY REPORT (SQ) ---
EXAM DESCRIPTION: CHEST 2 VIEWS COMPLETED DATE/TIME: 12/13/2018 5:31 pm REASON FOR STUDY: Tachycardia and dizziness COMPARISON: None. EXAM PARAMETERS: NUMBER OF VIEWS: two views TECHNIQUE: Digital Frontal and Lateral radiographic views of the chest acquired. RADIATION DOSE: NA LIMITATIONS: none FINDINGS: LUNGS AND PLEURA: No opacities, masses or pneumothorax. No pleural effusion. MEDIASTINUM AND HILAR STRUCTURES: No masses or contour abnormalities. HEART AND VASCULAR STRUCTURES: Heart normal size. No evidence for failure. BONES: No acute findings. HARDWARE: None in the chest. OTHER: No other significant finding. IMPRESSION: NO ACUTE RADIOGRAPHIC FINDING IN THE CHEST. TECHNICAL DOCUMENTATION: JOB ID: [id number] [employer]- All Rights Reserved Reading location - IP/workstation name: [email or web address]
--- NOTE | 2018-12-13 20:49 | ER Document Report ---
ED General - General Chief Complaint: Blood Pressure Problem Stated Complaint: BLOOD PRESSURE ISSUE Time Seen by Provider: 12/13/18 16:54 Primary Care Provider: MARQUISE VALLE PA-C [Primary Care Provider] - Follow up as needed Mode of Arrival: Wheelchair TRAVEL OUTSIDE OF THE [place] IN LAST 30 DAYS: No - HPI Notes: This is a 48-year-old female who presents today with a complaint of blood pressure problems. Patient states that she has had a history of orthostatic hypotension for a while. She had dizzy spells intermittently for a long time now. Patient states that her PCP started her on fludrocortisone about 3 days or so ago. Today, she notes her blood pressure was elevated and her heart rate was up. So she came to the emergency department for evaluation. She denies any recent illness. She denies any headache. She denies any chest pain. She denies any fever chills. She denies any abdominal pain. She denies any focal neurologic complaints. She denies any headaches. Patient states that she feels fine now. Her blood pressure seems to be okay now. She has no complaints at this time. - Related Data Allergies/Adverse Reactions: No Known Allergies Allergy (Verified 12/13/18 16:56) Past Medical History - General Information source: Patient - Social History Smoking Status: Current Every Day Smoker Chew tobacco use (# tins/day): No Frequency of alcohol use: None Drug Abuse: None Family History: Arthritis, CAD, DM, Hyperlipidemia, Hypertension, Malignancy Patient has suicidal ideation: No Patient has homicidal ideation: No - Past Medical History Cardiac Medical History: Reports: Hx Hypercholesterolemia, Hx Hypertension Pulmonary Medical History: Reports: Hx Asthma, Hx COPD Renal/ Medical History: Denies: Hx Peritoneal Dialysis GI Medical History: Reports: Hx Gastroesophageal Reflux Disease Psychiatric Medical History: Reports: Hx Anxiety, Hx Attention Deficit Hyperactivity Disorder, Hx Bipolar Disorder, Hx Depression Past Surgical History: Reports: Hx Appendectomy, Hx Hysterectomy - Immunizations Hx Diphtheria, Pertussis, Tetanus Vaccination: Yes Hx Pneumococcal Vaccination: 12/11/14 Review of Systems - Review of Systems Constitutional: denies: Fever Cardiovascular: Palpitations, Heart racing. denies: Chest pain Respiratory: denies: Cough Gastrointestinal: denies: Abdominal pain, Diarrhea, Nausea, Vomiting Neurological/Psychological: denies: Weakness, Headaches, Numbness -: Yes All other systems reviewed and negative Physical Exam - Vital signs Vitals: Temp Pulse Resp BP Pulse Ox 98.1 F 126 H 20 124/84 99 12/13/18 16:49 12/13/18 16:49 12/13/18 16:49 12/13/18 16:49 12/13/18 16:49 - General General appearance: Appears well, Alert - Respiratory Respiratory status: No respiratory distress Chest status: Nontender Breath sounds: Normal Chest palpation: Normal - Cardiovascular Rhythm: Regular Heart sounds: Normal auscultation Murmur: No - Abdominal Inspection: Normal Distension: No distension Bowel sounds: Normal Tenderness: Nontender Organomegaly: No organomegaly - Neurological Neuro grossly intact: Yes Cognition: Normal Orientation: AAOx4 - There is no motor, sensory or cerebellar deficits. Nonfocal neurologic deficits. GCS is 15. NIH stroke score is 0. Patient has chronic decreased sensation in bilateral lower extremities. No changes today. She is being worked up for this. She recently had Doppler studies done. [place] Coma Scale Eye Opening: Spontaneous [place] Coma Scale Verbal: Oriented [place] Coma Scale Motor: Obeys Commands [place] Coma Scale Total: 15 Speech: Normal Motor strength normal: LUE, RUE, LLE, RLE Sensory: Normal - Psychological Associated symptoms: Normal affect, Normal mood - Skin Skin Temperature: Warm Skin Moisture: Dry Skin Color: Normal Course - Re-evaluation Re-evalutation: 12/13/18 20:48 Differential diagnosis includes orthostatic hypotension versus dehydration versus electrolyte abnormalities. EKG shows normal sinus rhythm at 97 bpm. Normal axis. . No acute injury pattern. QTC slightly prolonged. 12/13/18 20:49 Patient reevaluated. Patient is doing well. Labs are unremarkable. Leukocyto sis likely secondary to steroid use. There is no clinical suspicion for infection. Blood pressure is within normal limits. She is not orthostatic. She is asymptomatic. She is stable for discharge. - Vital Signs Vital signs: Temp Pulse Resp BP Pulse Ox 98.1 F 126 H 13 129/84 H 94 12/13/18 16:49 12/13/18 16:49 12/13/18 20:01 12/13/18 20:01 12/13/18 20:01 - Laboratory Result Diagrams: 12/13/18 17:36 12/13/18 17:36 Laboratory results interpreted by me: 12/13/18 17:36 WBC 15.2 H Hgb 16.7 H Hct 49.5 H MCV 99 H MCH 33.6 H RDW 14.1 H Absolute Neuts (auto) 10.0 H Discharge - Discharge Clinical Impression: Palpitations, Orthostasis Condition: Good Disposition: HOME, SELF-CARE Instructions: Palpitations (Irregular or Rapid Heartrate) ([facility]), Orthostatic Hypotension ([facility]) Referrals: MARQUISE VALLE PA-C [Primary Care Provider] - Follow up as needed
[2018-12-13 21:35] VITALS: BP 144/90
--- NOTE | 2018-12-13 21:48 | EKG REPORT ---
SEVERITY:- ABNORMAL ECG - SINUS RHYTHM CONSIDER RVH W/ SECONDARY REPOL ABNORMALITY BORDERLINE PROLONGED QT INTERVAL : Confirmed by: Layla Dumont MD 13-Dec-2018 21:47:30
== END 2018-12-13 21:36 | disposition home or self-care (01) ==
LOC: ER 16:43
DX: R00.2 Palpitations (principal); I95.1 Orthostatic hypotension; F17.200 Nicotine dependence, unspecified, uncomplicated; E78.00 Pure hypercholesterolemia, unspecified; I10 Essential (primary) hypertension; J44.9 Chronic obstructive pulmonary disease, unspecified; Z90.710 Acquired absence of both cervix and uterus
CPT/HCPCS: 36415; 71046; 80053; 82550; 82553; 83735; 84484; 85025; 85610; 85730; 93005; 93010

== ENCOUNTER 2019-01-29 06:35 | Day surgery (SDC) | payer MEDICAID ==
[~2019-01-29 06:35] MED LIST: VERAPAMIL HCL 5 MG, LIDOCAINE HCL/PF 2 ML, NORMAL SALINE 6 ML in SYRINGE, DISPOSABLE, 1... IV PRN
[2019-01-29] MEDS ORDERED: DIAZEPAM 5 MG TABLET PO PRN (07:18)
[2019-01-29] MEDS ORDERED: DIPHENHYDRAMINE HCL 25 MG CAPSULE PO PRN (07:19)
[2019-01-29] MEDS ORDERED: HEPARIN SODIUM,PORCINE/NS/PF 2,000 UNIT/1,000 ML RTUINJ IV ONE (07:39)
[2019-01-29] MEDS ORDERED: LIDOCAINE 1% INJ-PF (10 MG/ML) 30 ML SDV ONE (07:39)
[2019-01-29] MEDS ORDERED: FENTANYL CITRATE INJ/PF 100 MCG/2 ML AMPUL ONE ×2 (08:16→09:09)
[2019-01-29] MEDS ORDERED: MIDAZOLAM 2 MG/2 ML INJ ONE (08:16)
[2019-01-29] MEDS ORDERED: HEPARIN SOD (PORCINE) 1,000 UNIT/ML 10 ML VIAL ONE (08:16)
--- NOTE | 2019-01-29 09:42 | Operative Report ---
Operative Report DATE OF SURGERY: 01/29/19 PREOPERATIVE DIAGNOSIS: Atypical chest pain POSTOPERATIVE DIAGNOSIS: Noncardiac chest pain OPERATION: Left heart catheterization coronary angiography left ventriculography from a radial approach SURGEON: Elvis ANESTHESIA: Moderate Sedation COMPLICATIONS: None PROCEDURE: After informed consent was obtained the patient was brought to the cardiac catheterization lab and the right wrist was prepared in usual sterile and draped manner. Hemodynamic access was gained using micropuncture technique and the patient was anticoagulated with heparin. An intra-arterial cocktail of verapamil and lidocaine was administered. Selective coronary angiography was performed with a [place] catheter. This was exchanged with pigtail catheter and left ventriculography was performed in standard WOOTEN projection. The patient left the Cardiac Catheterization Lab in stable condition, with intact distal pulses and no chest pain or other complications from the procedure. Conscious sedation was initiated, monitored, and maintained during the procedure with the start time of 902 and a completion time of 927 for a total procedure time of 25. A total of 3 milligrams of Versed and 100 mcg of fentanyl were used for conscious sedation. HEMODYNAMIC DATA: Aortic pressure at the beginning the case was 124/68 post ventriculography LV pressure is 128/11 aortic pressure on pullback is 128/70 there is no gradient across the aortic valve CORONARY ANATOMY: [] ANGIOGRAPHY: [] VENTRICULOGRAPHY: Ventriculography is performed in the WOOT[place] projection and demonstrates [normal left ventricular function with normal regional wall motion ejection fraction visually is 60%] . CORONARY ANGIOGRAPHY: [] LEFT MAIN: [Normal] LEFT ANTERIOR DESCENDING: [The LAD is transapical and normal gives rise to a large first diagonal which is also normal] CIRCUMFLEX CORONARY: The circumflex supplies a large inferoposterolateral wall with small obtuse marginals this is also normal without evidence of atherosclerotic obstruction RIGHT CORONARY ARTERY: The right coronary artery is a dominant vessel supplying the PDA and posterolateral branches this is also normal IMPRESSION: [ 1. Normal left ventricular function 2. No evidence of valvular heart disease 3. Normal epicardial coronaries 4. Noncardiac chest pain CC Dr. Carlota swan, Dr. Yung try 0]
[2019-01-29 12:25] VITALS: BP 121/67
== END 2019-01-29 12:15 | disposition home or self-care (01) ==
LOC: CCL 06:35
PROVIDERS: ATTEND Internal Medicine Cardiovascular Disease
DX: R07.89 Other chest pain (principal); R94.39 Abnormal result of other cardiovascular function study; I10 Essential (primary) hypertension; Z79.899 Other long term (current) drug therapy; F17.210 Nicotine dependence, cigarettes, uncomplicated; R94.31 Abnormal electrocardiogram [ECG] [EKG]; H81.10 Benign paroxysmal vertigo, unspecified ear; G89.4 Chronic pain syndrome; Z79.1 Long term (current) use of non-steroidal anti-inflammatories (NSAID); Z79.891 Long term (current) use of opiate analgesic; I95.1 Orthostatic hypotension
CPT/HCPCS: 93458; J2250; J3010; J1644 ×2; J3490 ×4

== ENCOUNTER 2019-04-06 17:44 | Emergency (ER) | payer MEDICAID ==
--- NOTE | 2019-04-06 19:25 | ER Document Report ---
ED Medical Screen (RME) - General Chief Complaint: Fall Injury Stated Complaint: FALL/BACK PAIN Time Seen by Provider: 04/06/19 19:19 Primary Care Provider: MARQUISE VALLE PA-C [Primary Care Provider] - Follow up as needed Mode of Arrival: Wheelchair Information source: Patient Notes: 49-year-old female patient, patient of [facility] presenting to the emergency department with chief complaint of back pain after falling. Patient reports she fell down approximately 5 stairs earlier today. She states pain from the cervical spine down through the thoracic and lumbar spine. In triage she is making some rhythmic jerking movements, she is speaking through this, she is alert and oriented. She denies ever having these rhythmic jerking movements before. These are entire body rhythmic jerking movements. No seizure-like activity noted. Patient has tenderness with palpation in the cervical, thoracic and lumbar region, no vertebral step-off or deformity noted. Patient will be given Valium in an attempt to get her rhythmic jerking movements to stop long enough for her to go to CT scan. I have greeted and performed a rapid initial assessment of this patient. A comprehensive ED assessment and evaluation of the patient, analysis of test results and completion of the medical decision making process will be conducted by additional ED providers. I have specifically instructed the patient or family members with the patient to immediately return to any nursing staff should anything change in the patient's condition or with their chief complaint. TRAVEL OUTSIDE OF THE [place] IN LAST 30 DAYS: No - Related Data Allergies/Adverse Reactions: No Known Allergies Allergy (Verified 01/29/19 06:34) Home Medications: macrobid. trazadone. oxycodone. celexa. trileptal. fulcortisone. metoprolol. protonix. hydroxyzine Past Medical History - Social History Chew tobacco use (# tins/day): No Frequency of alcohol use: None Drug Abuse: None - Past Medical History Cardiac Medical History: Reports: Hx Hypercholesterolemia Denies: Hx Coronary Artery Disease, Hx Heart Attack, Hx Hypertension - WAS DROPPING TO LOW Pulmonary Medical History: Reports: Hx Asthma, Hx COPD, Hx Pneumonia Denies: Hx Bronchitis Neurological Medical History: Denies: Hx Cerebrovascular Accident, Hx Seizures Renal/ Medical History: Denies: Hx Peritoneal Dialysis GI Medical History: Reports: Hx Gastroesophageal Reflux Disease Musculoskeltal Medical History: Denies Hx Arthritis Psychiatric Medical History: Reports: Hx Anxiety, Hx Attention Deficit Hyperactivity Disorder, Hx Bipolar Disorder, Hx Depression Past Surgical History: Reports: Hx Appendectomy, Hx Hysterectomy - Immunizations Hx Diphtheria, Pertussis, Tetanus Vaccination: No Physical Exam - Vital signs Vitals: Temp Pulse Resp BP Pulse Ox 98.6 F 82 20 112/93 H 100 04/06/19 18:03 04/06/19 18:03 04/06/19 18:03 04/06/19 18:03 04/06/19 18:03 Course - Vital Signs Vital signs: Temp Pulse Resp BP Pulse Ox 98.6 F 82 20 112/93 H 100 04/06/19 18:03 04/06/19 18:03 04/06/19 18:03 04/06/19 18:03 04/06/19 18:03 Doctor's Discharge - Discharge Referrals: MARQUISE VALLE PA-C [Primary Care Provider] - Follow up as needed
[2019-04-06] MEDS ORDERED: DIAZEPAM 5 MG TABLET PO ONE (19:27)
--- NOTE | 2019-04-06 20:06 | RADIOLOGY REPORT (SQ) ---
EXAM DESCRIPTION: CT HEAD WITHOUT COMPLETED DATE/TIME: 04/06/2019 7:54 pm REASON FOR STUDY: fall COMPARISON: 09/04/2013 TECHNIQUE: Axial images acquired through the brain without intravenous contrast. Images reviewed wit h bone, brain and subdural windows. Images stored on PACS. All CT scanners at this facility use dose modulation, iterative reconstruction, and/or weight based d osing when appropriate to reduce radiation dose to as low as reasonably achievable (ALARA). [facility]: Dose Right [facility]: CareDose [facility]: Dose Right [facility]: Teradose 4D [facility]: Smart [employer] RADIATION DOSE: CT Rad equipment meets quality standard of care and radiation dose reduction techniq ues were employed. CTDIvol: 53.2 mGy. DLP: 964 mGy-cm.. LIMITATIONS: None. FINDINGS: VENTRICLES: Normal size and contour. CEREBRUM: No hemorrhage. No midline shift. New 7 mm area of hyperdensity in the left frontal -tempor al periventricular white matter, possible small vessel ischemic change. No evidence for acute large v essel infarction. CEREBELLUM: No masses. No hemorrhage. No alteration of density. No evidence for acute infarction. EXTRA-AXIAL SPACES: No fluid collections. ORBITS AND GLOBE: No intra- or extraconal masses. Normal contour of globe without masses. CALVARIUM: No fracture. PARANASAL SINUSES: No fluid or mucosal thickening. SOFT TISSUES: No mass or hematoma. OTHER: No other significant finding. IMPRESSION: No hemorrhage. No midline shift. New since 2013 seven mm area of hyperdensity in the le ft frontal -temporal periventricular white matter, possible small vessel ischemic change. No evidence for acute large vessel infarction. EVIDENCE OF ACUTE STROKE: NO. TECHNICAL DOCUMENTATION: JOB ID: [id number] [place]-72 Quality ID # 436: Final reports with documentation of one or more dose reduction techniques (e.g., Au tomated exposure control, adjustment of the mA and/or kV according to patient size, use of iterative reconstruction technique) 2010 [employer]- All Rights Reserved Reading location - IP/workstation name: [email or web address]
--- NOTE | 2019-04-06 20:26 | RADIOLOGY REPORT (SQ) ---
EXAM DESCRIPTION: CT CERVICAL SPINE WITHOUT IV CONTRAST, CT LUMBAR SPINE WITHOUT IV CONTRAST, CT THORACIC SPINE WITHOUT IV CONTRAST COMPLETED DATE/TME: 04/06/2019 19:26 (accession [id number]), 04/06/2019 19:25 (accession [id number]), 04/06/2019 19:25 (accession [id number]) CLINICAL HISTORY: 49 years, Female, fall COMPARISON: None. TECHNIQUE: Noncontrast CT of the cervical, thoracic, and lumbar spine was performed. Coronal and sagittal reformations were created. Images stored on PACS. All CT scanners at this facility use dose modulation, iterative reconstruction, and/or weight based dosing when appropriate to reduce radiation dose to as low as reasonably achievable (ALARA). [facility]: Dose Right [facility]: CareDose [facility]: Dose Right [facility]: Teradose 4D [facility]: [employer] LIMITATIONS: None. FINDINGS: Cervical spine: Limited evaluation of the posterior fossa structures reveals no suspicious abnormality. Occipital condyles are normal. Lateral masses of C1 and C2 align properly. Base and tip of the dens are intact. Craniocervical alignment is maintained. Cervical vertebral body heights and alignments are maintained. No acute fracture or malalignment. Limited evaluation of the lung apices reveals biapical scarring. There are also calcifications about the bilateral carotid bulbs extending to the proximal ICAs. Otherwise, paravertebral soft tissues show no suspicious abnormality. Thoracic spine: Thoracic vertebral body heights and alignments are maintained. No acute fracture or malalignment is appreciated. Only mild multilevel thoracic spondylosis is noted, designated primarily by multilevel anterior endplate spurring. Limited evaluation of the chest reveals mild emphysematous change. Limited assessment of the mediastinum reveals no suspicious finding. Paravertebral soft tissues also show no suspicious abnormal normality. Lumbar spine: Limited evaluation of the internal abdominopelvic contents reveals mild calcifications about the abdominal aorta and proximal iliac vessels. Lumbar vertebral body heights and alignments are maintained. Only mild spondylosis is evident at L4-L5, designated by intervertebral disc space narrowing, hypertrophic endplate spurring, and endplate sclerosis. No acute fracture or malalignment is appreciated. IMPRESSION: No acute fracture or malalignment within the cervical, thoracic, or lumbar spine. TECHNICAL DOCUMENTATION: Quality ID # 436: Final reports with documentation of one or more dose reduction techniques (e.g., Automated exposure control, adjustment of the mA and/or kV according to patient size, use of iterative reconstruction technique) copyright 2011 [employer]- All Rights Reserved
--- NOTE | 2019-04-06 20:27 | RADIOLOGY REPORT (SQ) ---
EXAM DESCRIPTION: CT CERVICAL SPINE WITHOUT IV CONTRAST, CT LUMBAR SPINE WITHOUT IV CONTRAST, CT THORACIC SPINE WITHOUT IV CONTRAST COMPLETED DATE/TME: 04/06/2019 19:26 (accession [id number]), 04/06/2019 19:25 (accession [id number]), 04/06/2019 19:25 (accession [id number]) CLINICAL HISTORY: 49 years, Female, fall COMPARISON: None. TECHNIQUE: Noncontrast CT of the cervical, thoracic, and lumbar spine was performed. Coronal and sagittal reformations were created. Images stored on PACS. All CT scanners at this facility use dose modulation, iterative reconstruction, and/or weight based dosing when appropriate to reduce radiation dose to as low as reasonably achievable (ALARA). [facility]: Dose Right [facility]: CareDose [facility]: Dose Right [facility]: Teradose 4D [facility]: [employer] LIMITATIONS: None. FINDINGS: Cervical spine: Limited evaluation of the posterior fossa structures reveals no suspicious abnormality. Occipital condyles are normal. Lateral masses of C1 and C2 align properly. Base and tip of the dens are intact. Craniocervical alignment is maintained. Cervical vertebral body heights and alignments are maintained. No acute fracture or malalignment. Limited evaluation of the lung apices reveals biapical scarring. There are also calcifications about the bilateral carotid bulbs extending to the proximal ICAs. Otherwise, paravertebral soft tissues show no suspicious abnormality. Thoracic spine: Thoracic vertebral body heights and alignments are maintained. No acute fracture or malalignment is appreciated. Only mild multilevel thoracic spondylosis is noted, designated primarily by multilevel anterior endplate spurring. Limited evaluation of the chest reveals mild emphysematous change. Limited assessment of the mediastinum reveals no suspicious finding. Paravertebral soft tissues also show no suspicious abnormal normality. Lumbar spine: Limited evaluation of the internal abdominopelvic contents reveals mild calcifications about the abdominal aorta and proximal iliac vessels. Lumbar vertebral body heights and alignments are maintained. Only mild spondylosis is evident at L4-L5, designated by intervertebral disc space narrowing, hypertrophic endplate spurring, and endplate sclerosis. No acute fracture or malalignment is appreciated. IMPRESSION: No acute fracture or malalignment within the cervical, thoracic, or lumbar spine. TECHNICAL DOCUMENTATION: Quality ID # 436: Final reports with documentation of one or more dose reduction techniques (e.g., Automated exposure control, adjustment of the mA and/or kV according to patient size, use of iterative reconstruction technique) copyright 2011 [employer]- All Rights Reserved
[2019-04-07 00:11] VITALS: BP 107/72
--- NOTE | 2019-04-07 05:34 | ER Document Report ---
Entered by YOLANDE AMARO SCRIBE 04/06/19 4022 Acting as scribe for:SIENNA KEATING IV, MD ED Fall - General Chief Complaint: Fall Injury Stated Complaint: FALL/BACK PAIN Time Seen by Provider: 04/06/19 19:19 Primary Care Provider: MARQUISE VALLE PA-C [Primary Care Provider] - Follow up as needed Mode of Arrival: Wheelchair Information source: Patient Notes: This 49 year old female patient presents to the ED today with complaints of back pain post fall down approximately x5 steps at 6:00 AM this morning. Patient reports increased involuntary rhythmic jerking movements after the fall. Patient states that she already had some neurological deficits prior to the fall, but they became more exaggerated post fall. Patient states "I shake all over when I'm standing or sitting" and that she can't ambulate because she can't control her legs, stating "I walk like I'm special needs". Patient also reports generalized weakness. Patient states that she met with a neurologist recently and is waiting for an appointment to be scheduled for a full neurological work up. TRAVEL OUTSIDE OF THE [place] IN LAST 30 DAYS: No - Related data Allergies/Adverse Reactions: No Known Allergies Allergy (Verified 01/29/19 06:34) Home Medications: macrobid. trazadone. oxycodone. celexa. trileptal. fulcortisone. metoprolol. protonix. hydroxyzine Past Medical History - General Information source: Patient - Social History Smoking Status: Current Every Day Smoker Chew tobacco use (# tins/day): No Smoking Education Provided: No Frequency of alcohol use: None Drug Abuse: None Family History: Reviewed & Not Pertinent, Arthritis, CAD, DM, Hyperlipidemia, Hypertension, Malignancy Patient has suicidal ideation: No Patient has homicidal ideation: No - Past Medical History Cardiac Medical History: Reports: Hx Hypercholesterolemia Pulmonary Medical History: Reports: Hx Asthma, Hx COPD, Hx Pneumonia GI Medical History: Reports: Hx Gastroesophageal Reflux Disease Psychiatric Medical History: Reports: Hx Anxiety, Hx Attention Deficit Hyperactivity Disorder, Hx Bipolar Disorder, Hx Depression Past Surgical History: Reports: Hx Appendectomy, Hx Hysterectomy - Immunizations Hx Diphtheria, Pertussis, Tetanus Vaccination: No Hx Pneumococcal Vaccination: 12/11/14 Review of Systems - Review of Systems Constitutional: No symptoms reported EENT: No symptoms reported Cardiovascular: No symptoms reported Respiratory: No symptoms reported Gastrointestinal: No symptoms reported Genitourinary: No symptoms reported Female Genitourinary: No symptoms reported Musculoskeletal: See HPI, Back pain Skin: No symptoms reported Hematologic/Lymphatic: No symptoms reported Neurological/Psychological: See HPI, Weakness, Other - Involuntary rhythmic jerking movements -: Yes All other systems reviewed and negative Physical Exam - Vital signs Vitals: Temp Pulse Resp BP Pulse Ox 98.6 F 82 20 112/93 H 100 04/06/19 18:03 04/06/19 18:03 04/06/19 18:03 04/06/19 18:03 04/06/19 18:03 - General General appearance: Alert, Other - Rhythmic jerking movements observed - HEENT Head: Normocephalic, Atraumatic Eyes: Normal Pupils: PERRL - Respiratory Respiratory status: No respiratory distress Chest status: Nontender Breath sounds: Normal Chest palpation: Normal - Cardiovascular Rhythm: Regular Heart sounds: Normal auscultation Murmur: No - Abdominal Inspection: Normal Distension: No distension Bowel sounds: Normal Tenderness: Nontender Organomegaly: No organomegaly - Back Back: Tender - Tender to palpate in midline lumbar spine. No: Deformity/step- off - With palpation of the cervical, thoracic, and lumbar spine - Extremities General upper extremity: Normal inspection General lower extremity: Normal inspection - Neurological Neuro grossly intact: Yes - Psychological Associated symptoms: Normal affect, Normal mood - Skin Skin Temperature: Warm Skin Moisture: Dry Skin Color: Normal Course - Re-evaluation Re-evalutation: 04/06/19 23:50 Results of ED MSE discussed with patient. All questions were answered prior to discharge. - Vital Signs Vital signs: Temp Pulse Resp BP Pulse Ox 98.2 F 69 18 107/72 96 04/07/19 00:10 04/07/19 00:10 04/07/19 00:10 04/07/19 00:10 04/07/19 00:10 - Diagnostic Test Radiology reviewed: Reports reviewed Discharge - Discharge Clinical Impression: Fall, accidental Qualifiers: Encounter type: initial encounter Qualified Code(s): W19.XXXA - Unspecified fall, initial encounter Back contusion Qualifiers: Encounter type: initial encounter Laterality: unspecified laterality Qualified Code(s): S20.229A - Contusion of unspecified back wall of thorax, initial encounter Condition: Good Disposition: HOME, SELF-CARE Additional Instructions: Return to the Emergency Department without delay if any worse. FOLLOW UP WITH YOUR NEUROLOGIST ON Monday04/06/19. HOME CARE INSTRUCTIONS & INFORMATION: Thank you for choosing us for your medical needs. We hope you're satisfied with the care you received. After you l eave, you must properly care for your problem and, at the same time, observe its progress. Any condition can change. Some illnesses can change rapidly over hours or days. If your condition worsens, return to the Emergency Department or see your physician promptly. ABOUT YOUR X-RAYS AND EKG'S: If you had an EKG or X-rays taken, they have been read by the Emergency Physician. The X-rays and EKG's will also be read by a Radiologist or Photographic Laboratory Technician within 24 hours. If discrepancies are noted, you will be notified by telephone. Please be certain the ED has a correct telephone number & address where you can be reached. Also, realize that some fractures or abnormalities do not show up on initial X-rays. If your symptoms continue, see your physician. ABOUT YOUR LABORATORY TEST: If you had laboratory tests, the results have been reviewed by the Emergency Physician. Some test results (for example cultures) may not be available for several days. You will be contacted if any test result shows you need additional treatment. Please be certain the ED has a correct telephone number and address where you can be reached. ABOUT YOUR MEDICATIONS: You will receive instructions on how to take your medicine on the prescription label you receive. Additional information may be provided by the Pharmacy. If you have questions afterwards, call the ED for clarification or further instructions. Some prescribed medications may cause drowsiness. Do not perform tasks such as driving a car or operating machinery without consulting your Pharmacist. If you feel you need a refill of pain medication, your condition will need re-evaluation. Please do not call for a refill of any medication. ABOUT YOUR SIGNATURE: Signature of this document acknowledges to followin. Understanding that you received emergency treatment and that you may be released before al medical problems are known or treated. Please be certain the ED has a correct phone number & address where you can be reached. 2. Acknowledgement that you will arrange for follow-up care as recommended. 3. Authorization for the Emergency Physician to provide information to your follow-up Physician in order to maximize your care. AT ANY TIME, IF YOUR SYMPTOMS CHANGE SIGNIFICANTLY OR WORSEN OR YOU DEVELOP NEW SYMPTOMS, RETURN TO THE EMERGENCY DEPARTMENT IMMEDIATELY FOR RE-EVALUATION. OUR GOAL IS TO PROVIDE EXCELLENT MEDICAL CARE! WE HOPE THAT WE HAVE MET YOUR EXPECTATIONS DURING YOUR EMERGENCY DEPARTMENT VISIT AND THAT YOU FEEL YOU HAVE RECEIVED EXCELLENT CARE! Contusion Your injury has resulted in a contusion -- a crushing of the deep tissues. No injury to important structures was detected during the physician's exam. Contusions vary in the amount of pain they cause, and in the length of time required for healing. Typically, the area will become bruised, and will remain painful to touch for two or three weeks. However, most patients are back to working and playing within a few days. After the initial period of rest and cold-packs, your symptoms (together with the doctor's recommendations) will determine how rapidly you can get back to full activity. Usually this means "do what feels okay, but don't do things that hurt." If re-examination was recommended, it's important to follow up as instructed. Call the doctor or return any time if pain increases, if swelling becomes severe, if you develop numbness or weakness in an injured extremity, or if any other alarming symptoms occur. Prescriptions: Walker [Folding Walker] 1 each MC ASDIR PRN #1 each PRN Reason: Referrals: MARQUISE VALLE PA-C [Primary Care Provider] - Follow up as needed I personally performed the services described in the documentation, reviewed and edited the documentation which was dictated to the scribe in my presence, and it accurately records my words and actions.
== END 2019-04-07 00:11 | disposition home or self-care (01) ==
LOC: ER 17:44
DX: S20.229A Contusion of unspecified back wall of thorax, initial encounter (principal); R53.1 Weakness; W10.9XXA Fall (on) (from) unspecified stairs and steps, initial encounter; F17.200 Nicotine dependence, unspecified, uncomplicated; E78.00 Pure hypercholesterolemia, unspecified; Z90.710 Acquired absence of both cervix and uterus
CPT/HCPCS: 70450; 72125; 72128; 72131; 99283

== ENCOUNTER → 2019-10-04 | Outpatient (CLI) | payer MEDICAID ==
--- NOTE | 2019-10-04 11:16 | RADIOLOGY REPORT (SQ) ---
EXAM DESCRIPTION: VENOUS UNILATERAL LOWER IMAGES COMPLETED DATE/TIME: 10/04/2019 11:00 am REASON FOR STUDY: LLE PAIN M79.662 PAIN IN LEFT LOWER LEG COMPARISON: None. TECHNIQUE: Dynamic and static avalos scale and color images acquired of the left leg venous system. Se lected spectral images acquired with additional compression and augmentation maneuvers. The contralat eral common femoral vein and saphenofemoral junction were also imaged. Images stored on PACS. LIMITATIONS: None. FINDINGS: COMMON FEMORAL: Normal phasicity, compression and augmentation. No visualized echogenic ma terial on avalos scale. No defects on color images. FEMORAL: Normal compression and augmentation. No visualized echogenic material on avalos scale. No defe cts on color images. POPLITEAL: Normal compression, augmentation. No visualized echogenic material on avalos scale. No defec ts on color images. CALF VESSELS: Normal compression, augmentation. No visualized echogenic material on avalos scale. No de fects on color images. GSV and SSV: Normal compression, augmentation. No visualized echogenic material on avalos scale. No def ects on color images. ANY DEEP VENOUS INSUFFICIENCY: No. ANY EVIDENCE OF POPLITEAL CYST: No. OTHER: No other significant finding. CONTRALATERAL COMMON FEMORAL VEIN AND SAPHENOFEMORAL JUNCTION: Normal phasicity, compression and augmentation. No visualized echogenic material on avalos scale. No de fects on color images. IMPRESSION: NO EVIDENCE DVT OR SVT IN THE LEFT LEG. TECHNICAL DOCUMENTATION: JOB ID: [id number] 2010 [employer]- All Rights Reserved Reading location - IP/workstation name: [email or web address]
== END ==
LOC: SP 09:36
PROVIDERS: ATTEND Physician Assistant
DX: M79.662 Pain in left lower leg (principal)
CPT/HCPCS: 93971

== ENCOUNTER 2019-11-18 17:51 | Emergency (ER) | payer MEDICAID ==
--- NOTE | 2019-11-18 18:38 | ER Document Report ---
ED Medical Screen (RME) - General Chief Complaint: Flank Pain Stated Complaint: FLANK PAIN, ABDOMINAL PAIN Time Seen by Provider: 11/18/19 18:32 Primary Care Provider: MARQUISE VALLE PA-C [Primary Care Provider] - Follow up as needed TRAVEL OUTSIDE OF THE [place] IN LAST 30 DAYS: No - HPI Notes: 11/18/19 18:37 49-year-old female to the emergency department with complaints of right-sided flank pain that wraps around to the front of her abdomen is been going on for 4 years but significantly worse in the past several days. She also states that she has abdominal swelling, nausea and vomiting. She states that she has been told in the past that she did have a kidney stone and her liver was enlarged. She states she never got that followed up. She denies any fevers, chills, hea dache, chest pain, shortness of breath. Does endorse diarrhea. I performed a brief medical screening exam on the patient determined that the patient needs further evaluation and management by main side provider. I have placed initial orders to help expedite care. - Related Data Allergies/Adverse Reactions: No Known Allergies Allergy (Verified 01/29/19 06:34) Past Medical History - Social History Frequency of alcohol use: None Drug Abuse: None - Past Medical History Cardiac Medical History: Reports: Hx Hypercholesterolemia Denies: Hx Coronary Artery Disease, Hx Heart Attack, Hx Hypertension - WAS DROPPING TO LOW Pulmonary Medical History: Reports: Hx Asthma, Hx COPD, Hx Pneumonia Denies: Hx Bronchitis Neurological Medical History: Denies: Hx Cerebrovascular Accident, Hx Seizures Renal/ Medical History: Denies: Hx Peritoneal Dialysis GI Medical History: Reports: Hx Gastroesophageal Reflux Disease Musculoskeltal Medical History: Denies Hx Arthritis Psychiatric Medical History: Reports: Hx Anxiety, Hx Attention Deficit Hyperactivity Disorder, Hx Bipolar Disorder, Hx Depression Past Surgical History: Reports: Hx Appendectomy, Hx Hysterectomy - Immunizations Hx Diphtheria, Pertussis, Tetanus Vaccination: No Physical Exam - Vital signs Vitals: Temp Pulse Resp BP Pulse Ox 98.6 F 79 20 117/75 94 11/18/19 17:56 11/18/19 17:56 11/18/19 17:56 11/18/19 17:56 11/18/19 17:56 Course - Vital Signs Vital signs: Temp Pulse Resp BP Pulse Ox 98.6 F 79 20 117/75 94 11/18/19 17:56 11/18/19 17:56 11/18/19 17:56 11/18/19 17:56 11/18/19 17:56 Doctor's Discharge - Discharge Referrals: MARQUISE VALLE PA-C [Primary Care Provider] - Follow up as needed
--- NOTE | 2019-11-18 19:08 | RADIOLOGY REPORT (SQ) ---
EXAM DESCRIPTION: CT ABD/PELVIS NO ORAL OR IV IMAGES COMPLETED DATE/TIME: 11/18/2019 6:55 pm REASON FOR STUDY: flank pain, eval stone COMPARISON: None. TECHNIQUE: CT scan of the abdomen and pelvis performed without intravenous or oral contrast. Images reviewed with lung, soft tissue, and bone windows. Reconstructed coronal and sagittal MPR images revi ewed. All images stored on PACS. All CT scanners at this facility use dose modulation, iterative reconstruction, and/or weight based d osing when appropriate to reduce radiation dose to as low as reasonably achievable (ALARA). [facility]: Dose Right [facility]: CareDose [facility]: Dose Right [facility]: Teradose 4D [facility]: Cellmax RADIATION DOSE: CT Rad equipment meets quality standard of care and radiation dose reduction techniq ues were employed. CTDIvol: 18.8 mGy. DLP: 960 mGy-cm.mGy. LIMITATIONS: None. FINDINGS: LOWER CHEST: No significant findings. No nodules or infiltrates. NON-CONTRASTED LIVER, SPLEEN, ADRENALS: Evaluation limited by lack of IV contrast. No identified sign ificant masses. PANCREAS: No masses. No peripancreatic inflammatory changes. GALLBLADDER: No identified stones by CT criteria. No inflammatory changes to suggest cholecystitis. RIGHT KIDNEY AND URETER: No suspicious masses. Assessment limited by lack of IV contrast. No signif icant calcifications. No hydronephrosis or hydroureter. LEFT KIDNEY AND URETER: No suspicious masses. Assessment limited by lack of IV contrast. No signifi cant calcifications. No hydronephrosis or hydroureter. AORTA AND RETROPERITONEUM: No aneurysm. No retroperitoneal masses or adenopathy. Incidental note is made of a retroaortic left renal vein. BOWEL AND PERITONEAL CAVITY: No obvious masses or inflammatory changes. No free fluid. APPENDIX: Not visualized. PELVIS, BLADDER, AND ABDOMINAL WALL:No abnormal masses. No free fluid. Bladder normal. BONES: Degenerative changes are seen of the hips and spine. OTHER: No other significant finding. IMPRESSION: No evidence of urolithiasis or obstructive uropathy. No findings to correlate to the pa tient's reported left flank pain. COMMENT: Quality ID # [id number]: Final reports with documentation of one or more dose reduction techniques (e.g., Automated exposure control, adjustment of the mA and/or kV according to patient size, use of iterative reconstruction technique) TECHNICAL DOCUMENTATION: JOB ID: [id number] 2010 [employer]- All Rights Reserved Reading location - IP/workstation name: [email or web address]
[2019-11-18 19:26] LABS: ABSOLUTE EOSINOPHILS # (AUTO) 0.1 10^3/uL (0.0-0.6); ABSOLUTE LYMPHOCYTES (AUTO) 2.8 10^3/uL (0.5-4.7); ABSOLUTE MONOCYTES (AUTO) 0.5 10^3/uL (0.1-1.4); ABSOLUTE NEUT (AUTO) 5.4 10^3/uL (1.7-8.2); BASOPHILS % (AUTO) 0.4 % (0-2); EOSINOPHILS % (AUTO) 1.6 % (0-6); HEMATOCRIT 44.8 % (36.0-47.0); HEMOGLOBIN 15.3 g/dL (12.0-15.5); LYMPHOCYTES % (AUTO) 31.4 % (13-45); MEAN CORPUSCULAR HGB CONC 34.2 g/dL (32.0-36.0); MEAN CORPUSCULAR VOLUME 94 fl (80-97); MONOCYTES % (AUTO) 5.8 % (3-13); PLATELET COUNT 254 10^3/uL (150-450); RED BLOOD COUNT 4.79 10^6/uL (3.72-5.28); RED CELL DISTRIBUTION WIDTH 13.2 % (11.5-14.0); SEGMENTED NEUTROPHILS % (AUTO) 60.8 % (42-78); TOTAL CELLS COUNTED % (AUTO) 100 %; WHITE BLOOD COUNT 8.9 10^3/uL (4.0-10.5)
[2019-11-18 19:41] LABS: ALKALINE PHOSPHATASE 89 U/L (38-126); ASPARTATE AMINO TRANSFERASE 20 U/L (14-36); BILIRUBIN,DIRECT 0.3 mg/dL (0.0-0.4); BILIRUBIN,TOTAL 0.4 mg/dL (0.2-1.3); BLOOD UREA NITROGEN 11 mg/dL (7-20); CALCIUM 9.6 mg/dL (8.4-10.2); CARBON DIOXIDE 34 mmol/L (22-30); GLUCOSE 99 mg/dL (75-110); TOTAL PROTEIN 6.8 g/dL (6.3-8.2)
[2019-11-18 19:42] LABS: APPEARANCE,URINE CLEAR; BILIRUBIN,URINE NEGATIVE (NEGATIVE); COLOR,URINE YELLOW; GLUCOSE, URINE NEGATIVE (NEGATIVE); KETONES,URINE NEGATIVE (NEGATIVE); LEUKOCYTE ESTERASE,URINE NEGATIVE (NEGATIVE); NITRITE,URINE NEGATIVE (NEGATIVE); PROTEIN,URINE NEGATIVE (NEGATIVE); URINE SPECIFIC GRAVITY 1.015; UROBILINOGEN,URINE NEGATIVE mg/dL (<2.0)
[2019-11-18 19:52] LABS: CHLORIDE 99 mmol/L (98-107); POTASSIUM 4.4 mmol/L (3.6-5.0)
[2019-11-18 19:56] LABS: ANION GAP 4 (5-19)
--- NOTE | 2019-11-18 20:27 | ER Document Report ---
ED General - General Chief Complaint: Flank Pain Stated Complaint: FLANK PAIN, ABDOMINAL PAIN Time Seen by Provider: 11/18/19 18:32 Primary Care Provider: MARQUISE VALLE PA-C [Primary Care Provider] - Follow up as needed Notes: Presents with right-sided back pain rating around to the right abdomen intermittent for the last 2 days. Has history chronic back problems and gallstones as well as kidney issues. No polydipsia polyuria dysuria hematuria or fevers. Takes home pain meds but has not had one since this morning. TRAVEL OUTSIDE OF THE [place] IN LAST 30 DAYS: No - Related Data Allergies/Adverse Reactions: No Known Allergies Allergy (Verified 01/29/19 06:34) Past Medical History - General Information source: Patient - Social History Smoking Status: Current Every Day Smoker Frequency of alcohol use: None Drug Abuse: None Family History: Reviewed & Not Pertinent, Arthritis, CAD, DM, Hyperlipidemia, Hypertension, Malignancy - Past Medical History Cardiac Medical History: Reports: Hx Hypercholesterolemia Denies: Hx Coronary Artery Disease, Hx Heart Attack, Hx Hypertension - WAS DROPPING TO LOW Pulmonary Medical History: Reports: Hx Asthma, Hx COPD, Hx Pneumonia Denies: Hx Bronchitis Neurological Medical History: Denies: Hx Cerebrovascular Accident, Hx Seizures Renal/ Medical History: Denies: Hx Peritoneal Dialysis GI Medical History: Reports: Hx Gastroesophageal Reflux Disease Musculoskeletal Medical History: Denies Hx Arthritis Psychiatric Medical History: Reports: Hx Anxiety, Hx Attention Deficit Hyperactivity Disorder, Hx Bipolar Disorder, Hx Depression Past Surgical History: Reports: Hx Appendectomy, Hx Hysterectomy - Immunizations Hx Diphtheria, Pertussis, Tetanus Vaccination: No Hx Pneumococcal Vaccination: 12/11/14 Review of Systems - Review of Systems Notes: REVIEW OF SYSTEMS GEN: Denies fever, chills, weight loss ENT: Denies sore throat, nasal discharge, ear pain EYES: Denies blurry vision, eye pain, discharge CV: Denies chest pain, palpitations, edema RESP: Denies cough, shortness of breath, wheezing GI: Denies abdominal pain, nausea, vomiting, diarrhea MSK: Back pain flank pain SKIN: Denies rash, skin lesions LYMPH: Denies swollen glands/lymph nodes NEURO: Denies headache, focal weakness or numbness, dizziness PSYCH: Denies depression, suicidal or homicidal ideation PHYSICAL EXAMINATION General: No acute distress, well-nourished Head: Atraumatic, normocephalic ENT: Mouth normal, oropharynx moist, no exudates or tonsillar enlargement Eyes: Conjunctiva normal, pupils equal, lids normal Neck: No JVD, supple, no guarding CVS: Normal rate, regular rhythm, no murmurs Resp: No resp distress, equal and normal breath sounds bilaterally GI: Upper quadrant tenderness no guarding no rebound. Morbidly obese. Ext: No deformities, no edema, normal range of motion in upper and lower ext Back: No CVA or midline TTP Skin: No rash, warm Lymphatic: No lymphadeopathy noted Neuro: Awake, alert. Face symmetric. GCS 15. Physical Exam - Vital signs Vitals: Temp Pulse Resp BP Pulse Ox 98.6 F 79 20 117/75 94 11/18/19 17:56 11/18/19 17:56 11/18/19 17:56 11/18/19 17:56 11/18/19 17:56 Course - Vital Signs Vital signs: Temp Pulse Resp BP Pulse Ox 98.6 F 79 20 117/75 94 11/18/19 17:56 11/18/19 17:56 11/18/19 17:56 11/18/19 17:56 11/18/19 17:56 - Laboratory Result Diagrams: 11/18/19 19:00 11/18/19 19:00 Laboratory results interpreted by me: 11/18/19 11/18/19 19:00 19:00 Sodium 136.9 L Carbon Dioxide 34 H Anion Gap 4 L Urine Blood SMALL H Discharge - Discharge Clinical Impression: Flank pain Condition: Good Disposition: HOME, SELF-CARE Instructions: Abdominal Pain ([facility]), Flank Pain ([facility]) Referrals: MARQUISE VALLE PA-C [Primary Care Provider] - Follow up as needed
[2019-11-18] MEDS ORDERED: HYDROMORPHONE HCL INJ/PF 2 MG/ML AMPULE IM ONE (22:13)
--- NOTE | 2019-11-18 22:31 | ER Document Report ---
ED General - General Chief Complaint: Flank Pain Stated Complaint: FLANK PAIN, ABDOMINAL PAIN Time Seen by Provider: 11/18/19 18:32 Primary Care Provider: MARQUISE VALLE PA-C [Primary Care Provider] - Follow up as needed Notes: Patient presents with several days of back pain right greater than left. She is chronic low back pain on chronic narcotic therapy, but is been worse for last 2 days. No injury no fever no urinary symptoms. Does have intermittent right- sided upper abdominal pain with known gallstones. Cannot tell if it the same as the back pain are different. No rashes or shingles. No vomiting or diarrhea and no fever. Has had an ultrasound and is due to see a surgeon but has not seen him yet. TRAVEL OUTSIDE OF THE [place] IN LAST 30 DAYS: No - Related Data Allergies/Adverse Reactions: No Known Allergies Allergy (Verified 01/29/19 06:34) Past Medical History - General Information source: Patient - Social History Smoking Status: Current Every Day Smoker Frequency of alcohol use: None Drug Abuse: None Family History: Reviewed & Not Pertinent, Arthritis, CAD, DM, Hyperlipidemia, Hypertension, Malignancy - Past Medical History Cardiac Medical History: Reports: Hx Hypercholesterolemia Denies: Hx Coronary Artery Disease, Hx Heart Attack, Hx Hypertension - WAS DROPPING TO LOW Pulmonary Medical History: Reports: Hx Asthma, Hx COPD, Hx Pneumonia Denies: Hx Bronchitis Neurological Medical History: Denies: Hx Cerebrovascular Accident, Hx Seizures Renal/ Medical History: Denies: Hx Peritoneal Dialysis GI Medical History: Reports: Hx Gastroesophageal Reflux Disease Musculoskeletal Medical History: Denies Hx Arthritis Psychiatric Medical History: Reports: Hx Anxiety, Hx Attention Deficit Hyperactivity Disorder, Hx Bipolar Disorder, Hx Depression Past Surgical History: Reports: Hx Appendectomy, Hx Hysterectomy - Immunizations Hx Diphtheria, Pertussis, Tetanus Vaccination: No Hx Pneumococcal Vaccination: 12/11/14 Review of Systems - Review of Systems Notes: REVIEW OF SYSTEMS GEN: Denies fever, chills, weight loss ENT: Denies sore throat, nasal discharge, ear pain EYES: Denies blurry vision, eye pain, discharge CV: Denies chest pain, palpitations, edema RESP: Denies cough, shortness of breath, wheezing GI: Pain and nausea MSK: Back pain SKIN: Denies rash, skin lesions LYMPH: Denies swollen glands/lymph nodes NEURO: Denies headache, focal weakness or numbness, dizziness PSYCH: Denies depression, suicidal or homicidal ideation PHYSICAL EXAMINATION General: No acute distress, well-nourished Head: Atraumatic, normocephalic ENT: Mouth normal, oropharynx moist, no exudates or tonsillar enlargement Eyes: Conjunctiva normal, pupils equal, lids normal Neck: No JVD, supple, no guarding CVS: Normal rate, regular rhythm, no murmurs Resp: No resp distress, equal and normal breath sounds bilaterally GI: Nondistended, soft, mild right upper quadrant tenderness to palpation, no rebound or guarding Ext: No deformities, no edema, normal range of motion in upper and lower ext Back: No CVA or midline TTP Skin: No rash, warm Lymphatic: No lymphadeopathy noted Neuro: Awake, alert. Face symmetric. GCS 15. Physical Exam - Vital signs Vitals: Temp Pulse Resp BP Pulse Ox 98.6 F 79 20 117/75 94 11/18/19 17:56 11/18/19 17:56 11/18/19 17:56 11/18/19 17:56 11/18/19 17:56 Course - Re-evaluation Re-evalutation: 11/18/19 22:36 Back pain chronic with acute component. No signs of radiculopathy. No fevers. No signs of UA or stones on CT scan. Did a gallbladder ultrasound which shows cholelithiasis. Could be the cause of the pain that is been known and chronic, with minimal tenderness no white count normal liver labs. No signs of cholecystitis on bedside ultrasound. Given IM Dilaudid. Feeling better. Will discharge home and follow-up with her primary care and surgery. No evidence of aortic pathology, or spinal epidural abscess. I have discussed with the patient there likely diagnosis, aftercare plan, follow-up plans and my usual and customary return precautions. They verbalized understanding of this. - Vital Signs Vital signs: Temp Pulse Resp BP Pulse Ox 98.6 F 79 20 117/75 94 11/18/19 17:56 11/18/19 17:56 11/18/19 17:56 11/18/19 17:56 11/18/19 17:56 - Laboratory Result Diagrams: 11/18/19 19:00 11/18/19 19:00 Laboratory results interpreted by me: 11/18/19 11/18/19 19:00 19:00 Sodium 136.9 L Carbon Dioxide 34 H Anion Gap 4 L Urine Blood SMALL H - Diagnostic Test Radiology reviewed: Image reviewed, Reports reviewed Procedures - Ultrasound/Bedside Ultrasound/Bedside Ultrasound: Gallbladder stones - Gallbladder wall thickening no pericholecystic fluid no sonographic Mandel sign no dilated gallbladder normal ducts Discharge - Discharge Clinical Impression: Flank pain Condition: Good Disposition: HOME, SELF-CARE Instructions: Abdominal Pain ([facility]), Flank Pain ([facility]) Referrals: MARQUISE VALLE PA-C [Primary Care Provider] - Follow up as needed
[2019-11-18 23:02] VITALS: BP 118/80
== END 2019-11-18 23:03 | disposition home or self-care (01) ==
LOC: ER 17:51
DX: R10.9 Unspecified abdominal pain (principal); G89.29 Other chronic pain; M54.5 Low back pain; F17.200 Nicotine dependence, unspecified, uncomplicated; E78.00 Pure hypercholesterolemia, unspecified; J44.9 Chronic obstructive pulmonary disease, unspecified; Z90.710 Acquired absence of both cervix and uterus
CPT/HCPCS: 99285; 96372; 36415; 83690; 85025; 80053; 81001; 74176; J1170

== ENCOUNTER 2019-11-22 16:05 | Emergency (ER) | payer MEDICAID ==
[2019-11-22] MEDS ORDERED: ONDANSETRON 4 MG TAB.RAPDIS PO ONE (16:28)
--- NOTE | 2019-11-22 16:29 | ER Document Report ---
ED Medical Screen (RME) - General Chief Complaint: Abdominal Pain Stated Complaint: ABDOMINAL PAIN Time Seen by Provider: 11/22/19 16:21 Primary Care Provider: MARQUISE VALLE PA-C [Primary Care Provider] - Follow up as needed Mode of Arrival: Ambulatory Information source: Patient Notes: 49-year-old female presented to ED for complaint of right upper quadrant abdominal pain with nausea and vomiting. She states she cannot keep anything down. She states she was diagnosed with gallstone on her last visit. She states that the doctor had to do a ultrasound because the CT did not show anything. She states she did get called by their surgeon and told that she needed follow-up if she had any increase in pain. She states she called her primary care doctor at [facility] at [facility] and they told her if her pain was a 10 out of 10 she needed to return to the ED. She states she has not taken any medicine or food since 1230 in case she needed to come back to the emergency room. She does have a history of bipolar anxiety asthma COPD and sleep apnea. She states she does smoke 1/2 pack a day does not drink or do any illicit drugs. Patient will receive 8 mg of Zofran at this time and then labs will be repeated as well as an ultrasound. I have greeted and performed a rapid initial assessment of this patient. A comprehensive ED assessment and evaluation of the patient, analysis of test results and completion of medical decision making process will be conducted by an additional ED providers. TRAVEL OUTSIDE OF THE [place] IN LAST 30 DAYS: No - Related Data Allergies/Adverse Reactions: No Known Allergies Allergy (Verified 01/29/19 06:34) Past Medical History - Past Medical History Cardiac Medical History: Reports: Hx Hypercholesterolemia Denies: Hx Coronary Artery Disease, Hx Heart Attack, Hx Hypertension - WAS DR SOFIA TO [facility] Pulmonary Medical History: Reports: Hx Asthma, Hx COPD, Hx Pneumonia Denies: Hx Bronchitis Neurological Medical History: Denies: Hx Cerebrovascular Accident, Hx Seizures Renal/ Medical History: Denies: Hx Peritoneal Dialysis GI Medical History: Reports: Hx Gastroesophageal Reflux Disease Musculoskeltal Medical History: Denies Hx Arthritis Psychiatric Medical History: Reports: Hx Anxiety, Hx Attention Deficit Hyperactivity Disorder, Hx Bipolar Disorder, Hx Depression Past Surgical History: Reports: Hx Appendectomy, Hx Hysterectomy - Immunizations Hx Diphtheria, Pertussis, Tetanus Vaccination: No Physical Exam - Vital signs Vitals: Temp Pulse Resp BP Pulse Ox 98.3 F 93 18 136/85 H 99 11/22/19 16:22 11/22/19 16:22 11/22/19 16:22 11/22/19 16:22 11/22/19 16:22 Course - Vital Signs Vital signs: Temp Pulse Resp BP Pulse Ox 98.3 F 93 18 136/85 H 99 11/22/19 16:22 11/22/19 16:22 11/22/19 16:22 11/22/19 16:22 11/22/19 16:22 Doctor's Discharge - Discharge Referrals: MARQUISE VALLE PA-C [Primary Care Provider] - Follow up as needed
[2019-11-22 17:05] LABS: ABSOLUTE EOSINOPHILS # (AUTO) 0.1 10^3/uL (0.0-0.6); ABSOLUTE LYMPHOCYTES (AUTO) 3.5 10^3/uL (0.5-4.7); ABSOLUTE MONOCYTES (AUTO) 0.5 10^3/uL (0.1-1.4); ABSOLUTE NEUT (AUTO) 5.1 10^3/uL (1.7-8.2); BASOPHILS % (AUTO) 0.3 % (0-2); EOSINOPHILS % (AUTO) 1.4 % (0-6); HEMATOCRIT 45.9 % (36.0-47.0); HEMOGLOBIN 15.8 g/dL (12.0-15.5); LYMPHOCYTES % (AUTO) 37.8 % (13-45); MEAN CORPUSCULAR HEMOGLOBIN 32.3 pg (27.0-33.4); MEAN CORPUSCULAR HGB CONC 34.4 g/dL (32.0-36.0); MEAN CORPUSCULAR VOLUME 94 fl (80-97); MONOCYTES % (AUTO) 5.5 % (3-13); PLATELET COUNT 263 10^3/uL (150-450); RED BLOOD COUNT 4.89 10^6/uL (3.72-5.28); RED CELL DISTRIBUTION WIDTH 13.4 % (11.5-14.0); TOTAL CELLS COUNTED % (AUTO) 100 %; WHITE BLOOD COUNT 9.2 10^3/uL (4.0-10.5)
[2019-11-22 17:09] LABS: APPEARANCE,URINE CLEAR; BILIRUBIN,URINE NEGATIVE (NEGATIVE); COLOR,URINE YELLOW; GLUCOSE, URINE NEGATIVE (NEGATIVE); KETONES,URINE NEGATIVE (NEGATIVE); LEUKOCYTE ESTERASE,URINE NEGATIVE (NEGATIVE); NITRITE,URINE NEGATIVE (NEGATIVE); PROTEIN,URINE NEGATIVE (NEGATIVE); URINE SPECIFIC GRAVITY 1.009; UROBILINOGEN,URINE NEGATIVE mg/dL (<2.0)
[2019-11-22 17:22] LABS: ALBUMIN 4.3 g/dL (3.5-5.0); ALKALINE PHOSPHATASE 89 U/L (38-126); ANION GAP 5 (5-19); ASPARTATE AMINO TRANSFERASE 19 U/L (14-36); BILIRUBIN,DIRECT 0.3 mg/dL (0.0-0.4); BILIRUBIN,TOTAL 0.5 mg/dL (0.2-1.3); BLOOD UREA NITROGEN 10 mg/dL (7-20); CALCIUM 9.9 mg/dL (8.4-10.2); CARBON DIOXIDE 32 mmol/L (22-30); CHLORIDE 101 mmol/L (98-107); GLUCOSE 88 mg/dL (75-110); POTASSIUM 4.9 mmol/L (3.6-5.0)
--- NOTE | 2019-11-22 17:26 | RADIOLOGY REPORT (SQ) ---
EXAM DESCRIPTION: U/S ABDOMEN LTD W/DOPPLER IMAGES COMPLETED DATE/TIME: 11/22/2019 5:14 pm REASON FOR STUDY: Upper quadrant abdominal pain with nv COMPARISON: None. TECHNIQUE: Dynamic and static grayscale images acquired of the abdomen and recorded on PACS. Additio nal selected color Doppler and spectral images recorded. LIMITATIONS: None. FINDINGS: PANCREAS: No masses. Visualized pancreatic duct normal caliber. LIVER: Fatty liver. The liver measures 17.1 cm in length, which is at the upper limits of normal fo r size. LIVER VASCULATURE: Normal directional flow of the main portal vein and hepatic veins. GALLBLADDER: Gallstones. The gallbladder wall measures 2.9 mm, upper limits of normal wall thicknes s. No pericholecystic fluid. ULTRASOUND-DETECTED NOBLE'S SIGN: Negative. INTRAHEPATIC DUCTS AND COMMON DUCT: CBD measures 4.5 mm in diameter, normal. The intrahepatic ducts normal caliber. No filling defects. INFERIOR VENA CAVA: Normal flow. AORTA: No aneurysm. RIGHT KIDNEY: The right kidney measures 10.3 x 4.4 x 4.4 cm, normal size. Normal echogenicity. No s olid or suspicious masses. No hydronephrosis. No calcifications. PERITONEAL AND RIGHT PLEURAL SPACE: No ascites or effusions. OTHER: No other significant findings. IMPRESSION: 1. Gallstones. 2. No evidence of biliary obstruction. 3. Fatty liver. TECHNICAL DOCUMENTATION: JOB ID: [id number] 2010 [employer]- All Rights Reserved Reading location - IP/workstation name: [email or web address]
--- NOTE | 2019-11-22 20:57 | ER Document Report ---
ED GI/ - General Chief Complaint: Abdominal Pain Stated Complaint: ABDOMINAL PAIN Time Seen by Provider: 11/22/19 16:21 Primary Care Provider: MARQUISE VALLE PA-C [Primary Care Provider] - Follow up as needed Mode of Arrival: Ambulatory Notes: CHIEF COMPLAINT: Right upper quadrant abdominal pain HPI: 49-year-old female who is morbidly obese presenting for right upper quadrant abdominal pain over the last 24 hours. Pain is been fairly constant. Has not had vomiting but has had nausea. No fever. Patient states she had pain in the upper abdomen more on the left side 4 days ago presented to the emergency department had CT imaging and lab work at that time and states the ER doctor put an ultrasound on her abdomen and told her she had gallstones. ROS: See HPI - all other systems were reviewed and are otherwise negative Constitutional: no fever Eyes: no drainage, no blurred vision ENT: no runny nose, no sore throat Cardiovascular: no chest pain Resp: no SOB, no cough GI: no vomiting, no diarrhea, + abdominal pain : no dysuria Integumentary: no rash Allergy: no hives Musculoskeletal: no extremity pain or swelling Neurological: no numbness/tingling, no weakness MEDICATIONS: I agree with the patient medications as charted by the RN. ALLERGIES: I agree with the allergies as charted by the RN. PAST MEDICAL HISTORY/PAST SURGICAL HISTORY: Reviewed and agree as charted by RN. SOCIAL HISTORY: Reviewed and agree as charted by RN. FAMILY HISTORY: No significant familial comorbid conditions directly related to patient complaint EXAM: Reviewed vital signs as charted by RN. CONSTITUTIONAL: Alert and oriented and responds appropriately to questions. Well-appearing; well-nourished HEAD: Normocephalic; atraumatic EYES: PERRL; Conjunctivae clear, sclerae non-icteric ENT: normal nose; no rhinorrhea; moist mucous membranes; pharynx without lesions noted, no uvula edema or deviation, no tonsillar hypertrophy, phonation normal NECK: Supple without meningismus; non-tender; no cervical lymphadenopathy, no masses CARD: RRR; no murmurs, no clicks, no rubs, no gallops; symmetric distal pulses RESP: Normal chest excursion without splinting or tachypnea; breath sounds clear and equal bilaterally; no wheezes, no rhonchi, no rales, pulse oximetry 98% on room air not hypoxic ABD/GI: Morbidly obese, normal bowel sounds; non-distended; soft, mild tenderness to the right upper quadrant epigastric region on palpation, no rebound, no guarding; no palpable organomegaly or masses. BACK: The back appears normal and is non-tender to palpation, there is no CVA tenderness EXT: Normal ROM in all joints; non-tender to palpation; no cyanosis, no effusions, no edema SKIN: Normal color for age and race; warm; dry; good turgor; no acute lesions noted NEURO: Moves all extremities equally; Motor and sensory function intact PSYCH: The patient's mood and manner are appropriate. Grooming and personal hygiene are appropriate. MDM: 49-year-old female with gallstones presenting with right upper quadrant pain. Patient had lab work and CT imaging 4 days ago that were without acute findings. Her lab work today is also normal. Her ultrasound shows gallstones but no pericholecystic fluid or thickening of the gallbladder wall specifically. I discussed this with Dr. Jalloh with the surgeon who indicates patient has an appointment on Monday for follow-up she should continue her pain medication and they will see her on Monday as an outpatient. Does not feel patient requires admission at this time TRAVEL OUTSIDE OF THE [place] IN LAST 30 DAYS: No - Related Data Allergies/Adverse Reactions: No Known Allergies Allergy (Verified 01/29/19 06:34) Past Medical History - General Information source: Patient - Social History Smoking Status: Current Every Day Smoker Frequency of alcohol use: None Drug Abuse: None Family History: Reviewed & Not Pertinent, Arthritis, CAD, DM, Hyperlipidemia, Hypertension, Malignancy - Past Medical History Cardiac Medical History: Reports: Hx Hypercholesterolemia Denies: Hx Coronary Artery Disease, Hx Heart Attack, Hx Hypertension - WAS DROPPING TO LOW Pulmonary Medical History: Reports: Hx Asthma, Hx COPD, Hx Pneumonia Denies: Hx Bronchitis Neurological Medical History: Denies: Hx Cerebrovascular Accident, Hx Seizures Renal/ Medical History: Denies: Hx Peritoneal Dialysis GI Medical History: Reports: Hx Gastroesophageal Reflux Disease Musculoskeletal Medical History: Denies Hx Arthritis Psychiatric Medical History: Reports: Hx Anxiety, Hx Attention Deficit Hyperactivity Disorder, Hx Bipolar Disorder, Hx Depression Past Surgical History: Reports: Hx Appendectomy, Hx Hysterectomy - Immunizations Hx Diphtheria, Pertussis, Tetanus Vaccination: No Hx Pneumococcal Vaccination: 12/11/14 Physical Exam - Vital signs Vitals: Temp Pulse Resp BP Pulse Ox 98.3 F 93 18 136/85 H 99 11/22/19 16:22 11/22/19 16:22 11/22/19 16:22 11/22/19 16:22 11/22/19 16:22 Course - Re-evaluation Re-evalutation: 11/22/19 21:35 I discussed evaluation with the patient at length. She declines further pain medication at this time. Will discharge home to follow-up on Monday as scheduled - Vital Signs Vital signs: Temp Pulse Resp BP Pulse Ox 98.4 F 67 16 134/77 H 99 11/22/19 20:06 11/22/19 20:06 11/22/19 20:06 11/22/19 20:06 11/22/19 16:22 - Laboratory Result Diagrams: 11/22/19 16:45 11/22/19 16:45 Laboratory results interpreted by me: 11/22/19 11/22/19 11/22/19 16:45 16:45 16:45 Hgb 15.8 H Carbon Dioxide 32 H Urine Blood SMALL H Discharge - Discharge Clinical Impression: Right upper quadrant pain, Biliary colic Cholelithiasis Qualifiers: Cholelithiasis location: gallbladder Cholecystitis presence: without cholecystitis Biliary obstruction: without biliary obstruction Qualified Code(s): K80.20 - Calculus of gallbladder without cholecystitis without obstruction Condition: Stable Disposition: HOME, SELF-CARE Additional Instructions: Continue previous pain medication. Follow-up on Monday with surgery for further evaluation and management return for uncontrolled pain at home. Limit foods at home so that you are eating no greasy or spicy foods Referrals: MARQUISE VALLE PA-C [Primary Care Provider] - Follow up as needed
[2019-11-22 22:05] VITALS: BP 132/78
== END 2019-11-22 22:05 | disposition home or self-care (01) ==
LOC: ER 16:05
DX: K80.20 Calculus of gallbladder without cholecystitis without obstruction (principal); R10.11 Right upper quadrant pain; R11.0 Nausea; R10.811 Right upper quadrant abdominal tenderness; R10.816 Epigastric abdominal tenderness; K76.0 Fatty (change of) liver, not elsewhere classified; F17.200 Nicotine dependence, unspecified, uncomplicated; J44.9 Chronic obstructive pulmonary disease, unspecified
CPT/HCPCS: 99284; 36415; 83690; 84703; 85025; 80053; 81001; 76705; 93976; S0119

== ENCOUNTER 2019-12-01 21:52 | Inpatient (IN) | payer MEDICAID ==
--- NOTE | 2019-12-01 22:45 | ER Document Report ---
ED Fever - General Chief Complaint: Fever Stated Complaint: FEVER,COUGH Time Seen by Provider: 12/01/19 22:25 Primary Care Provider: MARQUISE VALLE PA-C [Primary Care Provider] - Follow up as needed Mode of Arrival: Medic Information source: Patient Notes: 49-year-old woman presents to the emergency department with a history of fever, cough and doing poorly for the past 5 days. She had a coronavirus test performed and received a negative report today. She has had some sinus congestion and drainage as well as left sided posterior chest wall pain with cough. She has a history of COPD and has had O2 sats in the 80s when EMS picked her up. She notes fever of 102.4 and having difficulty since 11/26/2019. She received her negative COVID test results today. She was given 975 mg of Tylenol in route to the hospital and placed on 2 L nasal cannula due to O2 sats which were 90 or less. Patient has known gallbladder disease and has been awaiting preop clearance for surgery. She is a smoker. TRAVEL OUTSIDE OF THE [place] IN LAST 30 DAYS: No - Related Data Allergies/Adverse Reactions: No Known Allergies Allergy (Verified 01/29/19 06:34) Past Medical History - Social History Smoking Status: Current Every Day Smoker Family History: Reviewed & Not Pertinent, Arthritis, CAD, DM, Hyperlipidemia, Hypertension, Malignancy - Past Medical History Cardiac Medical History: Reports: Hx Hypercholesterolemia Denies: Hx Coronary Artery Disease, Hx Heart Attack, Hx Hypertension - WAS DROPPING TO LOW Pulmonary Medical History: Reports: Hx Asthma, Hx COPD, Hx Pneumonia Denies: Hx Bronchitis Neurological Medical History: Denies: Hx Cerebrovascular Accident, Hx Seizures Renal/ Medical History: Denies: Hx Peritoneal Dialysis GI Medical History: Reports: Hx Gastroesophageal Reflux Disease Musculoskeletal Medical History: Denies Hx Arthritis Psychiatric Medical History: Reports: Hx Anxiety, Hx Attention Deficit Hy peractivity Disorder, Hx Bipolar Disorder, Hx Depression Past Surgical History: Reports: Hx Appendectomy, Hx Hysterectomy - Immunizations Hx Diphtheria, Pertussis, Tetanus Vaccination: No Hx Pneumococcal Vaccination: 12/11/14 Review of Systems - Review of Systems Notes: Constitutional :+ fever. HENT: + Nasal congestion, negative for sore throat. Eyes: Negative for visual changes. Cardiovascular: Negative for chest pain. Respiratory: + Cough, + shortness of breath Gastrointestinal: Negative for abdominal pain, vomiting or diarrhea. Genitourinary: Negative for dysuria. Musculoskeletal: Negative for back pain. Skin: Negative for rash. Neurological: Negative for headaches, weakness or numbness. 10 point ROS negative except as marked above and in HPI. Physical Exam - Vital signs Vitals: Temp Pulse Resp BP Pulse Ox 99.5 F 94 20 110/79 97 12/01/19 22:27 12/01/19 22:27 12/01/19 22:27 12/01/19 22:27 12/01/19 22:27 - Notes Notes: PHYSICAL EXAMINATION: Physical Exam: General: Well-nourished well-developed 49-year-old female in no acute distress HEENT: NC/AT, pupils equal round and reactive to light, MM moist,nares clear, oropharynx clear, airway patent Neck: supple, no adenopathy, no masses. Good range of motion Lungs: clear, no wheezing, no rales no rhonchi CVS: Regular rate and rhythm no murmur gallop or rub Abdomen: Soft, active, nontender, no masses, no hepatosplenomegaly Ext: No edema, clubbing or cyanosis. Neuro: Alert and responsive, moving all 4 extremities on command, cranial nerves intact, no focal findings Skin: Intact no open lesions, no rash Course - Vital Signs Vital signs: Temp Pulse Resp BP Pulse Ox 99.5 F 94 21 H 117/64 92 12/01/19 22:27 12/01/19 22:27 12/01/19 22:43 12/01/19 22:43 12/01/19 22:43 - Laboratory Result Diagrams: 12/01/19 22:54 12/01/19 22:54 Laboratory results interpreted by me: 12/01/19 12/01/19 22:54 22:54 WBC 12.1 H Lymph % (Auto) 9.0 L Absolute Neuts (auto) 10.5 H Seg Neutrophils % 86.8 H Potassium 2.9 L* Glucose 136 H Direct Bilirubin 0.7 H Alkaline Phosphatase 176 H Total Protein 5.9 L Albumin 3.2 L - Diagnostic Test Radiology reviewed: Image reviewed, Reports reviewed Radiology results interpreted by me: 12/02/19 00:33 Chest x-ray with bilateral perihilar density/infiltrate - EKG Interpretation by Oh EKG shows normal: Sinus rhythm - EKG interpreted by Dr. Knott: Normal sinus rhythm, rate 81, left atrial abnormality, normal axis,no acute ST or T wave abnormalities, no ischemic findings, compared to EKG 01/25/2019. Sinus bradycardia has now resolved and first-degree A-V block is no longer seen. Critical Care Note - Critical Care Note Total time excluding time spent on procedures (mins): 60 - Critical care time spent obtaining history from patient or surrogate, discussions with consultants, development of treatment plan with patient or surrogate, evaluation of patient's response to treatment, examination of patient, ordering and performing treatments and interventions, ordering and review of laboratory studies, re- evaluation of patient's condition, ordering and review of radiographic studies and review of old charts Discharge - Discharge Clinical Impression: COPD exacerbation, Hypokalemia, Low oxygen saturation, Tobacco abuse Pneumonia Qualifiers: Pneumonia type: due to unspecified organism Laterality: bilateral Lung location: unspecified part of lung Qualified Code(s): J18.9 - Pneumonia, unspecified organism Condition: Good Disposition: ADMITTED INPATIENT Admitting Provider: Shankar (Hospitalist) Unit Admitted: Medical Floor Referrals: MARQUISE VALLE PA-C [Primary Care Provider] - Follow up as needed
[2019-12-01 23:53] LABS: ABSOLUTE BASOPHILS # (AUTO) 0.1 10^3/uL (0.0-0.2); ABSOLUTE LYMPHOCYTES (AUTO) 1.1 10^3/uL (0.5-4.7); ABSOLUTE MONOCYTES (AUTO) 0.4 10^3/uL (0.1-1.4); ABSOLUTE NEUT (AUTO) 10.5 10^3/uL (1.7-8.2); BASOPHILS % (AUTO) 0.7 % (0-2); EOSINOPHILS % (AUTO) 0.2 % (0-6); HEMATOCRIT 40.6 % (36.0-47.0); MEAN CORPUSCULAR HEMOGLOBIN 31.9 pg (27.0-33.4); MEAN CORPUSCULAR HGB CONC 34.4 g/dL (32.0-36.0); MEAN CORPUSCULAR VOLUME 93 fl (80-97); MONOCYTES % (AUTO) 3.3 % (3-13); PLATELET COUNT 292 10^3/uL (150-450); RED BLOOD COUNT 4.38 10^6/uL (3.72-5.28); SEGMENTED NEUTROPHILS % (AUTO) 86.8 % (42-78); TOTAL CELLS COUNTED % (AUTO) 100 %; WHITE BLOOD COUNT 12.1 10^3/uL (4.0-10.5)
[2019-12-01 23:58] LABS: INTERNATIONAL RATION (INR) 1.06
[2019-12-02] MEDS ORDERED: IPRATROPIUM/ALBUTEROL 0.5-2.5 MG/3 ML AMPUL NEB ONE (00:03)
[2019-12-02 00:08] LABS: ALBUMIN 3.2 g/dL (3.5-5.0); ALKALINE PHOSPHATASE 176 U/L (38-126); ANION GAP 7 (5-19); ASPARTATE AMINO TRANSFERASE 29 U/L (14-36); BILIRUBIN,DIRECT 0.7 mg/dL (0.0-0.4); BILIRUBIN,TOTAL 0.9 mg/dL (0.2-1.3); BLOOD UREA NITROGEN 10 mg/dL (7-20); CALCIUM 8.5 mg/dL (8.4-10.2); CARBON DIOXIDE 25 mmol/L (22-30); CHLORIDE 106 mmol/L (98-107); GLUCOSE 136 mg/dL (75-110); TOTAL PROTEIN 5.9 g/dL (6.3-8.2)
--- NOTE | 2019-12-02 00:13 | RADIOLOGY REPORT (SQ) ---
EXAM DESCRIPTION: XR CHEST 1 VIEW COMPLETED DATE/TME: 12/01/2019 23:39 CLINICAL HISTORY: 49 years, Female, Shortness of breath COMPARISON: 12/13/2018 chest NUMBER OF VIEWS: 1 TECHNIQUE: Portable chest LIMITATIONS: None FINDINGS: The heart size is stable. Patchy airspace opacities in the perihilar regions bilaterally. No pneumothorax IMPRESSION: Patchy perihilar airspace opacities may reflect pneumonitis copyright 2010 [employer]- All Rights Reserved
[2019-12-02 00:18] LABS: POTASSIUM 2.9 mmol/L (3.6-5.0)
[2019-12-02] MEDS ORDERED: NORMAL SALINE 1000 ML 1,000 ML with POTASSIUM CHLORIDE 10 MEQ IV PRN ×2 (00:22)
[2019-12-02] MEDS ORDERED: POTASSIUM CHLORIDE 10 MEQ TABLET.ER PO ONE (00:23)
[2019-12-02] MEDS ORDERED: POTASSI CL 20 MEQ/50 ML RIDER 20 MEQ/50 ML RTUPB IV ONE (00:24)
--- NOTE | 2019-12-02 00:24 | EKG REPORT ---
SEVERITY:- BORDERLINE ECG - SINUS RHYTHM PROBABLE LEFT ATRIAL ABNORMALITY : Confirmed by: Cecelia Elmore 02-Dec-2019 00:23:34
[2019-12-02] MEDS ORDERED: METHYLPREDNISOLONE INJ 125 MG/2 ML SDV IV ONE (00:28)
[2019-12-02] MEDS ORDERED: CEFTRIAXONE INJ 1000 MG VIAL IV ONE (00:29)
[2019-12-02] MEDS ORDERED: GUAIFENESIN SYRP 200 MG/10 ML UDC PO PRN (01:47)
[2019-12-02] MEDS ORDERED: MELATONIN 5 MG TABLET PO PRN (01:52)
[2019-12-02] MEDS ORDERED: LORAZEPAM INJ 2 MG/1 ML VIAL IV PRN (01:52)
[2019-12-02] MEDS ORDERED: HYDRALAZINE HCL INJ/PF 20 MG/1 ML SDV IV PRN (01:52)
[2019-12-02] MEDS ORDERED: MAG HYDROX/AL HYDROX/SIMETH SUSP 30 ML UDCUP PO PRN (01:52)
[2019-12-02] MEDS ORDERED: PROMETHAZINE HCL INJ 25 MG/1 ML VIAL IV PRN (01:52)
[2019-12-02] MEDS ORDERED: MAGNESIUM HYDROXIDE SUSP 30 ML UDCUP PO PRN (01:52)
[2019-12-02 02:43] LABS: APPEARANCE,URINE SLIGHTLY-CLOUDY; BILIRUBIN,URINE NEGATIVE (NEGATIVE); COLOR,URINE AMBER; GLUCOSE, URINE NEGATIVE (NEGATIVE); KETONES,URINE NEGATIVE (NEGATIVE); PROTEIN,URINE 30 mg/dL (NEGATIVE)
[2019-12-02] MEDS: ACETAMINOPHEN 325 MG TABLET PO PRN ×3 (03:38→15:55)
--- NOTE | 2019-12-02 05:01 | PDOC H&P ---
History of Present Illness Admission Date/PCP: 12/02/2019 01:18 MARQUISE VALLE PA-C Patient complains of: Dyspnea History of Present Illness: RIRI QUILES is a 49 year old female who presents the emergency room with a 6- day history of dyspnea. She admits progressively worsening dyspnea over the course of the last 5 days becoming severe during the evening prior to admission. Her dyspnea is worsened by exertion and activity. Her dyspnea has been accompanied by an intermittent subjective fever with chills and a nonproductive cough. Her dyspnea has been associated with generalized malaise, fatigue, ague, sinus congestion and left posterior lateral pleuritic chest pain. She denies o ther associated or accompanying signs and symptoms. She admits seeing her primary care provider who tested her for COVID-19 and she received her (negative) test results on 12/01/2019. She used her home nebulizer so frequently that she ran out of her medications and she has been using her home inhalers without improvement. She admits prior similar episodes with previous exacerbations of her COPD. She has not identified any additional aggravating or ameliorating factors for her dyspnea. In the emergency room she was found to have acute respiratory failure with hypoxia, a mild leukocytosis and a chest x- ray showing bilateral hilar pneumonias. Her lactic acid was 1, her potassium was 2.9 and she was given IV and oral potassium in the ER. She improved moderately with nebulizer treatments and supplemental oxygen in the ER. She was subsequently admitted to the hospital for further evaluation treatment. Past Medical History Cardiac Medical History: Reports: Hyperlipidema Denies: Atrial Fibrillation, Coronary Artery Disease, DVT, Myocardial Infa rction, Hypertension - WAS DROPPING TO LOW, Pulmonary Embolism Pulmonary Medical History: Reports: Asthma, Chronic Obstructive Pulmonary Disease (COPD), Pneumonia Denies: Bronchitis EENT Medical History: Denies: Cataracts, Ears - Hearing aids Neurological Medical History: Denies: Hemorrhagic CVA, Ischemic CVA, Seizures Endocrine Medical History: Denies: Diabetes Mellitus Type 1, Diabetes Mellitus Type 2, Hyperthyroidism, Hypothyroidism Renal/ Medical History: Denies: Chronic Kidney Disease, Nephrolithiasis Malignancy Medical History: Reports: None GI Medical History: Reports: Gastroesophageal Reflux Disease, Other - Cholelithiasis Denies: Cirrhosis, Crohn's Disease, Hepatitis, Peptic Ulcer Disease, Ulcer ative Colitis Musculoskeltal Medical History: Denies: Arthritis, Fibromyalgia Skin Medical History: Denies: Eczema, Psoriasis Psychiatric Medical History: Reports: Attention Deficit Hyperactivity Disorder, Bipolar Disorder, Depression, Tobacco Dependency Denies: Alcohol Dependency, Substance Abuse Traumatic Medical History: Reports: None Hematology: Denies: Anemia, Bleeding Tendencies Infectious Medical History: Reports: None Past Surgical History Past Surgical History: Reports: Appendectomy, Hysterectomy Denies: Cholecystectomy - Known cholelithiasis: Currently awaiting elective cholecystectomy Social History Information Source: Patient Lives with: Alone Smoking Status: Current Every Day Smoker Electronic Cigarette use?: No Frequency of Alcohol Use: None Hx Recreational Drug Use: No Drugs: None Hx Prescription Drug Abuse: No - Advance Directive Resuscitation Status: Full Code Surrogate healthcare decision maker:: Perfecto Quiles Family History Family History: Arthritis, CAD, DM, Hyperlipidemia, Hypertension, Malignancy Parental Family History Reviewed: Yes Children Family History Reviewed: No Sibling(s) Family History Reviewed.: Yes Medication/Allergy Home Medications: Citalopram Hydrobromide [Celexa 40 mg Tablet] 1 tab PO DAILY 05/02/15 Trazodone HCl [Desyrel] 2 tab PO QHS 05/02/15 Fludrocortisone Acetate [Florinef 0.1 mg Tablet] 1 tab PO DAILY 01/28/19 Hydroxyzine HCl [Atarax 50 mg Tablet] 1 tab PO QAM 01/28/19 Metoprolol Succinate [Toprol Xl 25 mg Tab.sr] 1 tab PO DAILY 01/28/19 Oxycodone HCl 1 tab PO QID 01/28/19 Pantoprazole Sodium 40 mg PO BID 01/28/19 Hydroxyzine HCl [Atarax 50 mg Tablet] 2 tab PO QHS 01/29/19 Oxcarbazepine 300 mg PO BID 01/29/19 Walker [Folding Walker] 1 each ASDIR PRN #1 each 04/06/19 Allergies/Adverse Reactions: No Known Allergies Allergy (Verified 01/29/19 06:34) Review of Systems Constitutional: PRESENT: as per HPI, chills, fatigue, fever(s), other - Malaise Eyes: ABSENT: visual disturbances, other - Eye pain Ears: ABSENT: hearing changes, other - Ear pain Nose, Mouth, and Throat: ABSENT: headache(s), sore throat Cardiovascular: PRESENT: as per HPI, chest pain, dyspnea on exertion. ABSENT: edema, orthropnea, palpitations Respiratory: PRESENT: as per HPI, cough, dyspnea. ABSENT: hemoptysis, sputum Gastrointestinal: ABSENT: abdominal pain, constipation, diarrhea, nausea, vomiting Genitourinary: ABSENT: dysuria, hematuria Musculoskeletal: PRESENT: as per HPI, other - Ague. ABSENT: back pain, joint swelling Integumentary: ABSENT: pruritus, rash Neurological: ABSENT: confusion, convulsions, focal weakness, memory loss, syncope Psychiatric: ABSENT: anxiety, depression Endocrine: ABSENT: cold intolerance, heat intolerance Hematologic/Lymphatic: ABSENT: easy bleeding, easy bruising Allergic/Immunologic: ABSENT: seasonal rhinorrhea Physical Exam Vital Signs: Temp Pulse Resp BP Pulse Ox 99.5 F 94 21 H 117/64 92 12/01/19 22:27 12/01/19 22:27 12/01/19 22:43 12/01/19 22:43 12/01/19 22:43 Intake & Output 11/30/19 12/01/19 12/02/19 23:59 23:59 23:59 Weight 105.233 kg General appearance: PRESENT: no acute distress, cooperative, obese, other - On supplemental oxygen at home exam Head exam: PRESENT: atraumatic, normocephalic Eye exam: PRESENT: conjunctiva pink. ABSENT: conjunctival injection, scleral icterus Ear exam: PRESENT: normal external ear exam. ABSENT: bleeding, drainage Mouth exam: PRESENT: dry mucosa, neck supple Neck exam: ABSENT: thyromegaly, tracheal deviation Respiratory exam: PRESENT: decreased breath sounds - Mildly decreased breath sounds throughout all navarrete, prolonged expiratory phas - Mildly prolonged expiratory phase throughout all navarrete, symmetrical, wheezes - Moderate expiratory wheezes throughout all navarrete Cardiovascular exam: PRESENT: RRR. ABSENT: clicks, gallop, rubs Pulses: PRESENT: normal radial pulses, normal dorsalis pedis pul Vascular exam: PRESENT: normal capillary refill GI/Abdominal exam: PRESENT: normal bowel sounds, soft. ABSENT: tenderness Rectal exam: PRESENT: deferred Extremities exam: ABSENT: joint swelling, pedal edema Neurological exam: PRESENT: alert, oriented to person, oriented to place, oriented to time, oriented to situation, CN II-XII grossly intact. ABSENT: motor sensory deficit Psychiatric exam: PRESENT: appropriate affect, normal mood Skin exam: PRESENT: dry, intact, warm. ABSENT: jaundice, rash, urticaria Results Laboratory Results: 12/01/19 22:54 12/01/19 22:54 12/01/19 12/01/19 12/01/19 22:54 22:54 22:54 WBC 12.1 H RBC 4.38 Hgb 14.0 Hct 40.6 MCV 93 MCH 31.9 MCHC 34.4 RDW 13.0 Plt Count 292 Seg Neutrophils % 86.8 H Sodium 138.3 Potassium 2.9 L* Chloride 106 Carbon Dioxide 25 Anion Gap 7 BUN 10 Creatinine 0.77 Est GFR ( Amer) > 60 Glucose 136 H Lactic Acid Calcium 8.5 Magnesium 1.9 Total Bilirubin 0.9 AST 29 Alkaline Phosphatase 176 H Total Protein 5.9 L Albumin 3.2 L 12/02/19 00:03 WBC RBC Hgb Hct MCV MCH MCHC RDW Plt Count Seg Neutrophils % Sodium Potassium Chloride Carbon Dioxide Anion Gap BUN Creatinine Est GFR ( Amer) Glucose Lactic Acid 1.0 Calcium Magnesium Total Bilirubin AST Alkaline Phosphatase Total Protein Albumin Impressions: Chest X-Ray 12/01/19 23:39 IMPRESSION: Patchy perihilar airspace opacities may reflect pneumonitis copyright 2011 [employer]- All Rights Reserved Assessment and Plan - Diagnosis (1) Community acquired pneumonia, bilateral Is this a current diagnosis for this admission?: Yes (2) Acute respiratory failure with hypoxia Is this a current diagnosis for this admission?: Yes (3) COPD exacerbation Is this a current diagnosis for this admission?: Yes (4) RHINA (obstructive sleep apnea) Is this a current diagnosis for this admission?: Yes (5) HTN (hypertension) Qualifiers: Hypertension type: essential hypertension Qualified Code(s): I10 - Essential (primary) hypertension Is this a current diagnosis for this admission?: Yes (6) GERD (gastroesophageal reflux disease) Qualifiers: Esophagitis presence: esophagitis presence not specified Qualified Code(s): K21.9 - Gastro-esophageal reflux disease without esophagitis Is this a current diagnosis for this admission?: Yes (7) Hypokalemia Is this a current diagnosis for this admission?: Yes (8) ADHD (attention deficit hyperactivity disorder) Qualifiers: Attention deficit-hyperactivity disorder type: unspecified Qualified Code(s): F90.9 - Attention-deficit hyperactivity disorder, unspecified type Is this a current diagnosis for this admission?: Yes (9) Depressed bipolar disorder Is this a current diagnosis for this admission?: Yes (10) Tobacco abuse Is this a current diagnosis for this admission?: Yes - Plan Summary Summary: Patient will be admitted to the medical floor where she will receive routine supportive and symptomatic cares. She will receive supplemental oxygen via nasal cannula as needed to maintain adequate oxygen saturation. She will receive an aggressive pulmonary toilet utilizing nebulized Xopenex, Atrovent, Pulmicort and Mucomyst. She received IV Solu-Medrol to complete a burst dose protocol. She will receive IV Rocephin and Zithromax per pneumonia protocol. She will use Ativan 1 mg IV every 4 hours as needed anxiety or restlessness. She will use morphine sulfate 2 to 4 mg IV every 2 hours as needed for pain. Smoking cessation is advised and counseled briefly at the bedside. A nicotine replacement patch is available for the patient's use, if desired. Patient's home medications will be restarted, as appropriate, when her medication list has been verified and reconciled. CBCs, metabolic profiles and additional laboratory and/or radiographic evaluations will be obtained as needed. - Time Time Spent with patient: Less than 15 minutes Smoking Cessation Education: 3 to 10 minutes Medications reviewed and adjusted accordingly: Yes Anticipated Discharge Disposition: Home, Self Care Anticipated Discharge Timeframe: within 72 hours - Inpatient Certification Based on my medical assessment, after consideration of the patient's comorbidities, presenting symptoms, or acuity I expect that the services needed warrant INPATIENT care.: Yes I certify that my determination is in accordance with my understanding of Medicare's requirements for reasonable and necessary INPATIENT services [42 CFR 412.3e].: Yes Medical Necessity: Failure to Improve With Outpatient Therapy, Significant Comorbidiites Make Outpatient Treatment Too Risky, Need Close Monitoring Due to Risk of Patient Decompensation, Need for Nebulizer Therapy and Monitoring of Response, Need for IV Antibiotics
[2019-12-02] MEDS: HEPARIN SOD (PORCINE) 5,000 UNIT/ML 1 ML VIAL SUBCUT SCH ×3 (05:38→22:17)
[2019-12-02] MEDS: AZITHROMYCIN 500 MG in DEXTROSE 5%-WATER 250 ML IV SCH (05:46)
[2019-12-02] MEDS: POTASSIUM CHLORIDE 10 MEQ TABLET.ER PO SCH ×3 (07:53→16:25)
[2019-12-02] MEDS: BUDESONIDE NEB 0.5 MG/2 ML AMPUL NEB SCH ×2 (08:43→20:57)
[2019-12-02] MEDS: LEVALBUTEROL HCL NEB 1.25 MG/3 ML AMPUL NEB SCH ×2 (08:43→16:01)
[2019-12-02] MEDS: ACETYLCYSTEINE 20% SOLN 800 MG/4 ML VIAL.NEB NEB SCH ×2 (08:43→20:57)
[2019-12-02] MEDS: IPRATROPIUM BROMIDE 0.02% NEB 0.5 MG/2.5 ML AMPUL NEB SCH ×2 (08:43→16:01)
[2019-12-02 09:22] LABS: ABSOLUTE BASOPHILS # (AUTO) 0.1 10^3/uL (0.0-0.2); ABSOLUTE LYMPHOCYTES (AUTO) 0.9 10^3/uL (0.5-4.7); ABSOLUTE MONOCYTES (AUTO) 0.3 10^3/uL (0.1-1.4); ABSOLUTE NEUT (AUTO) 14.7 10^3/uL (1.7-8.2); BASOPHILS % (AUTO) 0.5 % (0-2); HEMATOCRIT 38.9 % (36.0-47.0); HEMOGLOBIN 13.4 g/dL (12.0-15.5); LYMPHOCYTES % (AUTO) 5.5 % (13-45); MEAN CORPUSCULAR HEMOGLOBIN 31.6 pg (27.0-33.4); MEAN CORPUSCULAR HGB CONC 34.5 g/dL (32.0-36.0); MEAN CORPUSCULAR VOLUME 92 fl (80-97); MONOCYTES % (AUTO) 1.7 % (3-13); PLATELET COUNT 311 10^3/uL (150-450); RED BLOOD COUNT 4.24 10^6/uL (3.72-5.28); RED CELL DISTRIBUTION WIDTH 12.9 % (11.5-14.0); SEGMENTED NEUTROPHILS % (AUTO) 92.3 % (42-78); TOTAL CELLS COUNTED % (AUTO) 100 %; WHITE BLOOD COUNT 15.9 10^3/uL (4.0-10.5)
[2019-12-02 09:40] LABS: ARTERIAL BLOOD BASE EXCESS 3.2 mmol/L; ARTERIAL BLOOD H2CO3 1.19 mmol/L (1.05-1.35); ARTERIAL BLOOD HCO3 27.2 mmol/L (20-24); ARTERIAL BLOOD PCO2 39.6 mmHg (35-45); ARTERIAL BLOOD PH 7.46 (7.35-7.45); ARTERIAL BLOOD PO2 54.7 mmHg (80-100); ARTERIAL BLOOD TOTAL CO2 28.4 mmol/L (21-25)
[2019-12-02 09:42] LABS: ARTERIAL BLOOD FIO2 2L
[2019-12-02 09:43] LABS: ALBUMIN 3.6 g/dL (3.5-5.0); ALKALINE PHOSPHATASE 199 U/L (38-126); ANION GAP 8 (5-19); ASPARTATE AMINO TRANSFERASE 29 U/L (14-36); BILIRUBIN,DIRECT 0.6 mg/dL (0.0-0.4); BILIRUBIN,TOTAL 0.9 mg/dL (0.2-1.3); BLOOD UREA NITROGEN 11 mg/dL (7-20); CALCIUM 9.4 mg/dL (8.4-10.2); CARBON DIOXIDE 26 mmol/L (22-30); CHLORIDE 105 mmol/L (98-107); GLUCOSE 181 mg/dL (75-110); TOTAL PROTEIN 6.5 g/dL (6.3-8.2)
[2019-12-02] MEDS: DOCUSATE SODIUM 100 MG CAPSULE PO SCH ×2 (10:05→17:03)
[2019-12-02] MEDS: FAMOTIDINE 20 MG TABLET PO SCH ×2 (10:05→22:17)
[2019-12-02 10:36] LABS: C-REACTIVE PROTEIN 440.6 mg/L (<10.0); POTASSIUM 4.2 mmol/L (3.6-5.0)
[2019-12-02] MEDS: NICOTINE 21 MG/24 HR PATCH.TD24 TD PRN (18:12)
[2019-12-02] MEDS: LEVALBUTEROL HCL NEB 0.63 MG/3 ML AMPUL NEB PRN (20:57)
[2019-12-02] MEDS: CEFTRIAXONE 1 GM/D5W RTU 1 GM/50 ML RTUPB IV SCH (22:18)
[2019-12-02] MEDS: RINGERS SOLUTION,LACTATED 1,000 ML IV PRN (23:01)
[2019-12-02] MEDS: MORPHINE SULFATE 10 MG/ML INJ IV PRN (23:06)
[2019-12-03] MEDS: AZITHROMYCIN 500 MG in DEXTROSE 5%-WATER 250 ML IV SCH ×2 (00:04→22:42)
[2019-12-03] MEDS: IPRATROPIUM BROMIDE 0.02% NEB 0.5 MG/2.5 ML AMPUL NEB SCH ×3 (00:28→15:58)
[2019-12-03] MEDS: LEVALBUTEROL HCL NEB 1.25 MG/3 ML AMPUL NEB SCH ×3 (00:28→15:58)
[2019-12-03] MEDS: MORPHINE SULFATE 10 MG/ML INJ IV PRN (04:34)
[2019-12-03] MEDS: RINGERS SOLUTION,LACTATED 1,000 ML IV PRN (04:35)
[2019-12-03] MEDS: HEPARIN SOD (PORCINE) 5,000 UNIT/ML 1 ML VIAL SUBCUT SCH ×3 (05:24→21:06)
[2019-12-03 05:27] LABS: HEMATOCRIT 37.6 % (36.0-47.0); HEMOGLOBIN 13.1 g/dL (12.0-15.5); MEAN CORPUSCULAR HEMOGLOBIN 32.3 pg (27.0-33.4); MEAN CORPUSCULAR HGB CONC 34.9 g/dL (32.0-36.0); MEAN CORPUSCULAR VOLUME 92 fl (80-97); PLATELET COUNT 300 10^3/uL (150-450); RED BLOOD COUNT 4.07 10^6/uL (3.72-5.28); WHITE BLOOD COUNT 11.7 10^3/uL (4.0-10.5)
[2019-12-03 05:48] LABS: ANION GAP 8 (5-19); BLOOD UREA NITROGEN 13 mg/dL (7-20); CALCIUM 9.4 mg/dL (8.4-10.2); CARBON DIOXIDE 29 mmol/L (22-30); CHLORIDE 105 mmol/L (98-107); GLUCOSE 118 mg/dL (75-110); POTASSIUM 4.5 mmol/L (3.6-5.0)
[2019-12-03] MEDS: BUDESONIDE NEB 0.5 MG/2 ML AMPUL NEB SCH ×2 (07:56→20:33)
[2019-12-03] MEDS: ACETYLCYSTEINE 20% SOLN 800 MG/4 ML VIAL.NEB NEB SCH ×2 (07:56→20:33)
[2019-12-03] MEDS: FAMOTIDINE 20 MG TABLET PO SCH (09:28)
[2019-12-03] MEDS: POTASSIUM CHLORIDE 10 MEQ TABLET.ER PO SCH ×3 (09:28→17:15)
[2019-12-03] MEDS: ACETAMINOPHEN 325 MG TABLET PO PRN (09:28)
[2019-12-03] MEDS: DOCUSATE SODIUM 100 MG CAPSULE PO SCH (09:28)
[2019-12-03] MEDS ORDERED: (PENDING PHARMACY ID) (Cyclobenzaprine Hcl [Cyclobenzaprine Hcl] 5 MG) PO PRN (13:07)
[2019-12-03] MEDS ORDERED: PROMETHAZINE HCL 25 MG TABLET PO PRN (13:07)
[2019-12-03] MEDS ORDERED: FUROSEMIDE INJ/PF 20 MG/2 ML SDV IV ONE (13:09)
[2019-12-03] MEDS ORDERED: (PENDING PHARMACY ID) (Citalopram Hydrobromide [Celexa 40 Mg Tablet] 40 MG) PO SCH (13:15)
[2019-12-03] MEDS ORDERED: ALBUTEROL SULFATE HFA (90 MCG/PUFF) 8 GM MDI IH PRN (13:30)
[2019-12-03] MEDS ORDERED: CYCLOBENZAPRINE HCL 10 MG TABLET PO PRN (14:12)
[2019-12-03] MEDS ORDERED: OXYCODONE HCL IR 5 MG TABLET PO PRN (14:14)
[2019-12-03] MEDS: METOPROLOL SUCCINATE 25 MG TAB.SR.24H PO SCH (14:21)
[2019-12-03] MEDS: LORATADINE 10 MG TABLET PO SCH (14:21)
--- NOTE | 2019-12-03 14:42 | CDI QUERY ---
CDI Query CDI Review: We are seeking further clarification of documentation to reflect the severity of illness of your patient. Per H&P: found to have acute respiratory failure with hypoxia, a mild leukocytosis and a chest x-ray showing bilateral hilar pneumonias Based on your medical judgment, can you further clarify in the progress notes whether the pneumonia is most likely or suspected to be related to any of the following: > Aspiration > Pseudomonas >MRSA >Pneumococcus > Viral > Gram negative >Other specific organism > Other cause (please specify) > None of the above / Not applicable Thank you for your consideration. DEVEN SanchezN RN Clinical Diesel Machinist Physician Advisor [email or web address]
[2019-12-03] MEDS: OXCARBAZEPINE 150 MG TABLET PO SCH (17:15)
[2019-12-03] MEDS: CLONAZEPAM 1 MG TABLET PO SCH (17:15)
[2019-12-03] MEDS: PANTOPRAZOLE SODIUM 40 MG TABLET.DR PO SCH (17:15)
[2019-12-03] MEDS ORDERED: (PENDING PHARMACY ID) (Oxcarbazepine [Oxcarbazepine] 300 MG) PO SCH (18:00)
--- NOTE | 2019-12-03 19:18 | PDOC PROGRESS REPORT ---
Subjective Progress Note for:: 12/03/19 Subjective:: She is feeling better, breathing improving, and she has been weaned down to 2 L O2 via NC. No fevers/chills. Reason For Visit: COMMUNITY ACQUIRED BILATERAL PNEUMONIA,ACUTE Physical Exam Vital Signs: Temp Pulse Resp BP Pulse Ox 97.4 F 89 14 137/78 H 97 12/03/19 15:46 12/03/19 15:46 12/03/19 15:46 12/03/19 15:46 12/03/19 15:46 Intake & Output 12/02/19 12/03/19 12/04/19 06:59 06:59 06:59 Intake Total 220 2872 485 Output Total 1000 Balance 220 2872 -515 Weight 105.2 kg 101.8 kg General appearance: PRESENT: no acute distress, obese Eye exam: ABSENT: scleral icterus Mouth exam: PRESENT: moist Throat exam: ABSENT: post pharyngeal erythema Neck exam: ABSENT: JVD Respiratory exam: PRESENT: clear to auscultation cordell, unlabored. ABSENT: crackles, rhonchi, tachypnea Cardiovascular exam: PRESENT: RRR GI/Abdominal exam: PRESENT: normal bowel sounds, soft Extremities exam: PRESENT: pedal edema Musculoskeletal exam: PRESENT: ambulatory Neurological exam: PRESENT: alert, awake, oriented to person, oriented to place, oriented to time, oriented to situation Psychiatric exam: PRESENT: appropriate affect Skin exam: ABSENT: rash Results Laboratory Results: 12/03/19 05:10 12/03/19 05:10 12/03/19 12/03/19 05:10 05:10 WBC 11.7 H RBC 4.07 Hgb 13.1 Hct 37.6 MCV 92 MCH 32.3 MCHC 34.9 RDW 13.0 Plt Count 300 Sodium 141.7 Potassium 4.5 Chloride 105 Carbon Dioxide 29 Anion Gap 8 BUN 13 Creatinine 0.80 Est GFR ( Amer) > 60 Glucose 118 H Calcium 9.4 Impressions: Chest X-Ray 12/01/19 23:39 IMPRESSION: Patchy perihilar airspace opacities may reflect pneumonitis copyright 2011 [employer]- All Rights Reserved Assessment and Plan - Diagnosis (1) Acute respiratory failure with hypoxia Is this a current diagnosis for this admission?: Yes (2) Community acquired pneumonia, bilateral Is this a current diagnosis for this admission?: Yes (3) COPD (chronic obstructive pulmonary disease) with emphysema Is this a current diagnosis for this admission?: Yes (4) Hypokalemia Is this a current diagnosis for this admission?: Yes (5) Tobacco abuse Is this a current diagnosis for this admission?: Yes (6) RHINA (obstructive sleep apnea) Is this a current diagnosis for this admission?: Yes - Plan Summary Summary: Patient will be admitted to the medical floor where she will receive routine supportive and symptomatic care. She will receive supplemental oxygen via nasal cannula as needed to maintain adequate oxygen saturation. She will receive an aggressive pulmonary toilet. She will receive IV Rocephin and Zithromax per pneumonia protocol. Smoking cessation is advised and counseled briefly at the bedside. A nicotine replacement patch is available for the patient's use, if de sired. Patient's home medications will be restarted, as appropriate, when her medication list has been verified and reconciled. Will continue to wean off O2 as tolerated. - Time Time Spent with patient: 35 or more minutes Anticipated Discharge Disposition: Home, Self Care Anticipated Discharge Timeframe: within 48 hours
[2019-12-03] MEDS: LEVALBUTEROL HCL NEB 0.63 MG/3 ML AMPUL NEB PRN (20:32)
[2019-12-03] MEDS: HYDROXYZINE HCL 10 MG TABLET PO SCH (21:06)
[2019-12-03] MEDS: CEFTRIAXONE 1 GM/D5W RTU 1 GM/50 ML RTUPB IV SCH (21:07)
[2019-12-03] MEDS ORDERED: (PENDING PHARMACY ID) (Hydroxyzine Hcl [Atarax 50 Mg Tablet] 100 MG) PO SCH (22:00)
[2019-12-03] MEDS ORDERED: AZITHROMYCIN INJ 500 MG VIAL IV ONE ×2 (22:18→22:22)
[2019-12-03] MEDS: NICOTINE 21 MG/24 HR PATCH.TD24 TD PRN (22:42)
[2019-12-04] MEDS: IPRATROPIUM BROMIDE 0.02% NEB 0.5 MG/2.5 ML AMPUL NEB SCH ×3 (00:01→16:14)
[2019-12-04] MEDS: LEVALBUTEROL HCL NEB 1.25 MG/3 ML AMPUL NEB SCH ×3 (00:01→16:14)
[2019-12-04] MEDS: HEPARIN SOD (PORCINE) 5,000 UNIT/ML 1 ML VIAL SUBCUT SCH ×3 (05:51→22:00)
[2019-12-04] MEDS: BUDESONIDE NEB 0.5 MG/2 ML AMPUL NEB SCH ×2 (08:36→21:02)
[2019-12-04] MEDS: ACETYLCYSTEINE 20% SOLN 800 MG/4 ML VIAL.NEB NEB SCH ×2 (08:36→21:02)
[2019-12-04] MEDS: HYDROXYZINE HCL 10 MG TABLET PO SCH ×2 (09:59→22:00)
[2019-12-04] MEDS: OXCARBAZEPINE 150 MG TABLET PO SCH ×2 (10:00→18:49)
[2019-12-04] MEDS: CLONAZEPAM 1 MG TABLET PO SCH ×2 (10:01→18:50)
[2019-12-04] MEDS: POTASSIUM CHLORIDE 10 MEQ TABLET.ER PO SCH ×3 (10:01→18:49)
[2019-12-04] MEDS: PANTOPRAZOLE SODIUM 40 MG TABLET.DR PO SCH ×2 (10:01→18:50)
[2019-12-04] MEDS: CITALOPRAM HYDROBROMIDE 20 MG TABLET PO SCH (10:02)
[2019-12-04] MEDS: METOPROLOL SUCCINATE 25 MG TAB.SR.24H PO SCH (10:02)
[2019-12-04] MEDS: LORATADINE 10 MG TABLET PO SCH (10:02)
--- NOTE | 2019-12-04 13:44 | PDOC PROGRESS REPORT ---
Subjective Progress Note for:: 12/04/19 Subjective:: She is overall much improved, but continues to require 2-3 L O2 and desaturates whenever she is off of O2. I suspect she has underlying chronic hypoxemia. Reason For Visit: COMMUNITY ACQUIRED BILATERAL PNEUMONIA,ACUTE Physical Exam Vital Signs: Temp Pulse Resp BP Pulse Ox 99.7 F 86 16 125/66 95 12/04/19 09:10 12/04/19 08:37 12/04/19 08:37 12/04/19 08:01 12/04/19 08:37 Intake & Output 12/03/19 12/04/19 12/05/19 06:59 06:59 06:59 Intake Total 2872 1179 460 Output Total 1550 Balance 2872 -898 460 Weight 101.8 kg 97.8 kg General appearance: PRESENT: no acute distress Head exam: PRESENT: atraumatic Eye exam: ABSENT: scleral icterus Mouth exam: PRESENT: moist Throat exam: ABSENT: post pharyngeal erythema Neck exam: ABSENT: JVD Respiratory exam: PRESENT: clear to auscultation cordell, unlabored. ABSENT: crackles, wheezes Cardiovascular exam: PRESENT: RRR GI/Abdominal exam: PRESENT: normal bowel sounds, soft Extremities exam: ABSENT: pedal edema Musculoskeletal exam: PRESENT: ambulatory Neurological exam: PRESENT: alert, awake Psychiatric exam: PRESENT: appropriate affect Skin exam: PRESENT: petechiae. ABSENT: rash Results Laboratory Results: 12/03/19 05:10 12/03/19 05:10 Impressions: Chest X-Ray 12/01/19 23:39 IMPRESSION: Patchy perihilar airspace opacities may reflect pneumonitis copyright 2011 [email or web address]- All Rights Reserved Assessment and Plan - Diagnosis (1) Acute respiratory failure with hypoxia Is this a current diagnosis for this admission?: Yes (2) Community acquired pneumonia, bilateral Is this a current diagnosis for this admission?: Yes (3) COPD (chronic obstructive pulmonary disease) with emphysema Is this a current diagnosis for this admission?: Yes (4) Hypokalemia Is this a current diagnosis for this admission?: Yes (5) Tobacco abuse Is this a current diagnosis for this admission?: Yes (6) RHINA (obstructive sleep apnea) Is this a current diagnosis for this admission?: Yes - Plan Summary Summary: Ms. Quiles is a 49 F with severe COPD and RHINA who presented with hypoxemia due to community acquired pneumonia. I suspect she had acute on chronic hypoxemic res piratory failure due to PNA, but she likely has chronic hypoxemia that has gone untreated. She tells me that she was previously on home oxygen therapy, but that she lost her insurance, and her oxygen was taken from her. She has felt SOB ever since. Her acute pneumonia has now resolved, and she continues to require supplemental O2, which I believe is due to underlying emphysema, and she should restart home O2 therapy. Will consult discharge planning for setting up Home O2 therapy. Continue IV antibiotics and DuoNebs. - Time Time Spent with patient: 35 or more minutes Anticipated Discharge Disposition: Home, Self Care Anticipated Discharge Timeframe: within 24 hours
[2019-12-04] MEDS: CEFTRIAXONE 1 GM/D5W RTU 1 GM/50 ML RTUPB IV SCH (22:00)
[2019-12-04] MEDS: AZITHROMYCIN 500 MG in DEXTROSE 5%-WATER 250 ML IV SCH (22:01)
[2019-12-05] MEDS: LEVALBUTEROL HCL NEB 1.25 MG/3 ML AMPUL NEB SCH ×3 (00:12→16:42)
[2019-12-05] MEDS: IPRATROPIUM BROMIDE 0.02% NEB 0.5 MG/2.5 ML AMPUL NEB SCH ×3 (00:12→16:42)
[2019-12-05] MEDS: HEPARIN SOD (PORCINE) 5,000 UNIT/ML 1 ML VIAL SUBCUT SCH ×2 (05:27→14:41)
[2019-12-05] MEDS: HYDROXYZINE HCL 10 MG TABLET PO SCH (08:13)
[2019-12-05] MEDS: POTASSIUM CHLORIDE 10 MEQ TABLET.ER PO SCH ×3 (08:15→16:54)
[2019-12-05] MEDS: ACETYLCYSTEINE 20% SOLN 800 MG/4 ML VIAL.NEB NEB SCH (08:23)
[2019-12-05] MEDS: BUDESONIDE NEB 0.5 MG/2 ML AMPUL NEB SCH (08:23)
[2019-12-05] MEDS ORDERED: CEFTRIAXONE 1 GM/D5W RTU 1 GM/50 ML RTUPB IV SCH (10:00)
[2019-12-05] MEDS: NICOTINE 21 MG/24 HR PATCH.TD24 TD PRN (10:42)
[2019-12-05] MEDS: METOPROLOL SUCCINATE 25 MG TAB.SR.24H PO SCH (10:43)
[2019-12-05] MEDS: LORATADINE 10 MG TABLET PO SCH (10:44)
[2019-12-05] MEDS: CITALOPRAM HYDROBROMIDE 20 MG TABLET PO SCH (10:44)
[2019-12-05] MEDS: PANTOPRAZOLE SODIUM 40 MG TABLET.DR PO SCH (10:44)
[2019-12-05] MEDS: OXCARBAZEPINE 150 MG TABLET PO SCH (10:44)
[2019-12-05] MEDS: CLONAZEPAM 1 MG TABLET PO SCH (10:45)
--- NOTE | 2019-12-05 16:57 | PDOC DISCHARGE SUMMARY ---
Impression - Admit/DC Date/PCP Admission Date/Primary Care Provider: 12/02/19 01:45 MARQUISE VALLE PA-C Discharge Date: 12/05/19 - Discharge Diagnosis (1) Acute respiratory failure with hypoxia Is this a current diagnosis for this admission?: Yes (2) Community acquired pneumonia, bilateral Is this a current diagnosis for this admission?: Yes (3) COPD (chronic obstructive pulmonary disease) with emphysema Is this a current diagnosis for this admission?: Yes (4) Hypokalemia Is this a current diagnosis for this admission?: Yes (5) Tobacco abuse Is this a current diagnosis for this admission?: Yes (6) RHINA (obstructive sleep apnea) Is this a current diagnosis for this admission?: Yes (7) Chronic hypoxemic respiratory failure Is this a current diagnosis for this admission?: Yes - Assessment Summary: Ms. Quiles is a 49 F with previously diagnosed severe COPD and RHINA who presented with acute on chronic hypoxemic respiratory failure due to community acquired pneumonia. She was treated with azithromycin/ceftriaxone. She tested negative for Covid and had negative blood cultures. She was transitioned to oral Ceftin on discharge. I suspect she had acutely worsened hypoxemic respiratory failure due to PNA, but she likely has chronic hypoxemia that has gone untreated. She was previously on home oxygen therapy but unfortunately lost her insurance, and her oxygen was taken from her; she has felt SOB ever since. Her acute pneumonia has now resolved, and she continues to require supplemental O2, which I believe is due to underlying emphysema, and she should restart home O2 therapy for treatment of chronic hypoxemic respiratory failure. She was advised to follow up with her PCP and customer relations specialist. She was prescribed Symbicort and Spiriva on discharge. She was also advised to stop smoking and to never smoke while wearing oxygen. - Additional Information Resuscitation Status: Full Code Discharge Diet: Cardiac Discharge Activity: Activity As Tolerated Referrals: MARQUISE VALLE PA-C [Primary Care Provider] - Follow up as needed RINKU PEÑA MD [ACTIVE STAFF] - Prescriptions: Cefuroxime Axetil [Ceftin 500 mg Tablet] 500 mg PO BID #8 tablet Ipratropium/Albuterol Sulfate [Duoneb 3 ml Ampul] 3 ml NEB RTQ4HP PRN #30 vial.neb PRN Reason: For Wheezing Nicotine [Nicoderm 21 mg/24 Hr Transderm Patch] 1 each TD DAILY #30 patch.td24 Tiotropium [place] [Spiriva Respimat] 4 gm IH DAILY #1 mist.inhal Budesonide/Formoterol Fumarate [Symbicort Hfa 160-4.5 Mcg Inhaler 6 gm] 2 puff IH Q12 #1 inhaler Home Medications: Citalopram Hydrobromide [Celexa 40 mg Tablet] 40 mg PO DAILY 05/02/15 Hydroxyzine HCl [Atarax 50 mg Tablet] 50 mg PO QAM 01/28/19 Metoprolol Succinate [Toprol Xl 25 mg Tab.sr] 25 mg PO DAILY 01/28/19 Oxycodone HCl 15 mg PO QIDP PRN 01/28/19 Pantoprazole Sodium 40 mg PO BID 01/28/19 Hydroxyzine HCl [Atarax 50 mg Tablet] 100 mg PO QHS 01/29/19 Oxcarbazepine 300 mg PO BID 01/29/19 Albuterol Sulfate [Albuterol Sulfate Hfa] 2 puff IH Q6HP PRN 12/02/19 Clonazepam [Klonopin 1 mg Tablet] 1 mg PO BID 12/02/19 Cyclobenzaprine HCl 5 mg PO TIDP PRN 12/02/19 Loratadine [Claritin 10 mg Tablet] 10 mg PO DAILY 12/02/19 Promethazine HCl [Phenergan 25 mg Tablet] 25 mg PO BIDP PRN 12/02/19 Budesonide/Formoterol Fumarate [Symbicort Hfa 160-4.5 Mcg Inhaler 6 gm] 2 puff IH Q12 #1 inhaler 12/05/19 Cefuroxime Axetil [Ceftin 500 mg Tablet] 500 mg PO BID #8 tablet 12/05/19 Ipratropium/Albuterol Sulfate [Duoneb 3 ml Ampul] 3 ml NEB RTQ4HP PRN #30 vial.neb 12/05/19 Nicotine [Nicoderm 21 mg/24 Hr Transderm Patch] 1 each TD DAILY #30 patch.td24 12/05/19 Tiotropium [place] [Spiriva Respimat] 4 gm IH DAILY #1 mist.inhal 12/05/19 History of Present Illiness History of Present Illness: RIRI QUILES is a 49 year old female Physical Exam Vital Signs: Temp Pulse Resp BP Pulse Ox 98.1 F 72 15 129/70 H 98 12/05/19 11:26 12/05/19 11:26 12/05/19 11:26 12/05/19 11:26 12/05/19 11:26 Intake & Output 12/04/19 12/05/19 12/06/19 06:59 06:59 06:59 Intake Total 1479 1600 550 Output Total 1550 950 Balance -71 650 550 Weight 97.8 kg 108.6 kg Results Laboratory Results: WBC 11.7 10^3/uL (4.0-10.5) H 12/03/19 05:10 RBC 4.07 10^6/uL (3.72-5.28) 12/03/19 05:10 Hgb 13.1 g/dL (12.0-15.5) 12/03/19 05:10 Hct 37.6 % (36.0-47.0) 12/03/19 05:10 MCV 92 fl (80-97) 12/03/19 05:10 MCH 32.3 pg (27.0-33.4) 12/03/19 05:10 MCHC 34.9 g/dL (32.0-36.0) 12/03/19 05:10 RDW 13.0 % (11.5-14.0) 12/03/19 05:10 Plt Count 300 10^3/uL (150-450) 12/03/19 05:10 Lymph % (Auto) 5.5 % (13-45) L 12/02/19 09:00 [place] % (Auto) 1.7 % (3-13) L 12/02/19 09:00 Eos % (Auto) 0.0 % (0-6) 12/02/19 09:00 Baso % (Auto) 0.5 % (0-2) 12/02/19 09:00 Absolute Neuts (auto) 14.7 10^3/uL (1.7-8.2) H 12/02/19 09:00 Absolute Lymphs (auto) 0.9 10^3/uL (0.5-4.7) 12/02/19 09:00 Absolute Monos (auto) 0.3 10^3/uL (0.1-1.4) 12/02/19 09:00 Absolute Eos (auto) 0.0 10^3/uL (0.0-0.6) 12/02/19 09:00 Absolute Basos (auto) 0.1 10^3/uL (0.0-0.2) 12/02/19 09:00 Seg Neutrophils % 92.3 % (42-78) H 12/02/19 09:00 PT 14.0 SEC (11.4-15.4) 12/01/19 22:54 INR 1.06 12/01/19 22:54 D-Dimer 0.75 ug/mL (0.00-0.50) H 12/02/19 09:00 Carbonic Acid 1.19 mmol/L (1.05-1.35) 12/02/19 09:25 HCO3/H2CO3 Ratio 22:1 12/02/19 09:25 ABG pH 7.46 (7.35-7.45) H 12/02/19 09:25 ABG pCO2 39.6 mmHg (35-45) 12/02/19 09:25 ABG pO2 54.7 mmHg (80-100) L 12/02/19 09:25 ABG HCO3 27.2 mmol/L (20-24) H 12/02/19 09:25 ABG Total CO2 28.4 mmol/L (21-25) H 12/02/19 09:25 ABG O2 Saturation 90.0 % (94-98) L 12/02/19 09:25 ABG Base Excess 3.2 mmol/L 12/02/19 09:25 FiO2 2L 12/02/19 09:25 Sodium 141.7 mmol/L (137-145) 12/03/19 05:10 Potassium 4.5 mmol/L (3.6-5.0) 12/03/19 05:10 Chloride 105 mmol/L (98-107) 12/03/19 05:10 Carbon Dioxide 29 mmol/L (22-30) 12/03/19 05:10 Anion Gap 8 (5-19) 12/03/19 05:10 BUN 13 mg/dL (7-20) 12/03/19 05:10 Creatinine 0.80 mg/dL (0.52-1.25) 12/03/19 05:10 Est GFR ( Amer) > 60 (>60) 12/03/19 05:10 Est GFR (MDRD) Non-Af > 60 (>60) 12/03/19 05:10 Glucose 118 mg/dL (75-110) H 12/03/19 05:10 Lactic Acid 1.5 mmol/L (0.7-2.1) 12/02/19 12:57 Calcium 9.4 mg/dL (8.4-10.2) 12/03/19 05:10 Magnesium 2.2 mg/dL (1.6-2.3) 12/02/19 09:00 Ferritin 234.00 ng/mL (6.2-137.0) H 12/02/19 09:00 Total Bilirubin 0.9 mg/dL (0.2-1.3) 12/02/19 09:00 Direct Bilirubin 0.6 mg/dL (0.0-0.4) H 12/02/19 09:00 Neonat Total Bilirubin Not Reportable 12/02/19 09:00 Neonat Direct Bilirubin Not Reportable 12/02/19 09:00 Neonat Indirect Bili Not Reportable 12/02/19 09:00 AST 29 U/L (14-36) 12/02/19 09:00 ALT 19 U/L (<35) 12/02/19 09:00 Alkaline Phosphatase 199 U/L (38-126) H 12/02/19 09:00 C-Reactive Protein 440.6 mg/L (<10.0) H 12/02/19 09:00 Total Protein 6.5 g/dL (6.3-8.2) 12/02/19 09:00 Albumin 3.6 g/dL (3.5-5.0) 12/02/19 09:00 Urine Color NILDA 12/02/19 00:40 Urine Appearance SLIGHTLY-CLOUDY 12/02/19 00:40 Urine pH 5.0 (5.0-9.0) 12/02/19 00:40 Ur Specific [place] 1.030 12/02/19 00:40 Urine Protein 30 mg/dL (NEGATIVE) H 12/02/19 00:40 Urine Glucose (UA) NEGATIVE mg/dL (NEGATIVE) 12/02/19 00:40 Urine Ketones NEGATIVE mg/dL (NEGATIVE) 12/02/19 00:40 Urine Blood SMALL (NEGATIVE) H 12/02/19 00:40 Urine Nitrite (Reflex) NEGATIVE (NEGATIVE) 12/02/19 00:40 Urine Bilirubin NEGATIVE (NEGATIVE) 12/02/19 00:40 Urine Urobilinogen 4.0 mg/dL (<2.0) H 12/02/19 00:40 Leukocyte Esterase Rfl NEGATIVE (NEGATIVE) 12/02/19 00:40 Urine RBC (Auto) 1 /HPF 12/02/19 00:40 Urine Bacteria (Auto) TRACE /HPF 12/02/19 00:40 Urine WBC (Reflex) < 1 /HPF 12/02/19 00:40 Squamous Epi Cells Auto <1 /HPF 12/02/19 00:40 Urine Mucus (Auto) RARE /LPF 12/02/19 00:40 Urine Ascorbic Acid NEGATIVE (NEGATIVE) 12/02/19 00:40 COVID-19 Source See comment 12/02/19 02:55 COVID-19 (MARYANN) Not Detected (Not Detect) 12/02/19 02:55 Impressions: Chest X-Ray 12/01/19 23:39 IMPRESSION: Patchy perihilar airspace opacities may reflect pneumonitis copyright 2011 [employer]- All Rights Reserved Stroke Is this a Stroke Patient?: No Acute Heart Failure Is this a Heart Failure Patient?: No
[2019-12-05 17:35] VITALS: BP 120/72
== END 2019-12-05 18:14 | disposition home or self-care (01) | DRG 193 ==
LOC: ER 21:52 → EH 12-02 01:45 → 3W 12-02 04:18 → 3N 12-02 08:32 → 3W 12-03 10:03
PROVIDERS: ADMIT Emergency Medicine; ATTEND Hospitalist
PROC: 5A09357 Assistance with Respiratory Ventilation, Less than 24 Consecutive Hours, Continuous Positive Airway Pressure (ICD-10-PCS; principal; 2019-12-02)
DX: J18.9 Pneumonia, unspecified organism (principal); J96.21 Acute and chronic respiratory failure with hypoxia; E78.5 Hyperlipidemia, unspecified; K21.9 Gastro-esophageal reflux disease without esophagitis; K80.20 Calculus of gallbladder without cholecystitis without obstruction; J43.9 Emphysema, unspecified; F17.200 Nicotine dependence, unspecified, uncomplicated; F31.9 Bipolar disorder, unspecified; Z79.899 Other long term (current) drug therapy; F90.9 Attention-deficit hyperactivity disorder, unspecified type; I10 Essential (primary) hypertension; G47.33 Obstructive sleep apnea (adult) (pediatric); E87.6 Hypokalemia; Z59.7 Insufficient social insurance and welfare support; Z99.81 Dependence on supplemental oxygen; Z20.828 Contact with and (suspected) exposure to other viral communicable diseases; Z83.3 Family history of diabetes mellitus; Z82.49 Family history of ischemic heart disease and other diseases of the circulatory system; Z82.61 Family history of arthritis; Z83.438 Family history of other disorder of lipoprotein metabolism and other lipidemia; Z90.49 Acquired absence of other specified parts of digestive tract; Z90.710 Acquired absence of both cervix and uterus
CPT/HCPCS: 36415; 36600; 71045; 80048; 80053; 81001; 82728; 82803; 83605; 83735; 85025; 85027; 85379; 85610; 86140; 87040; 87635; 93005; 93010; 94640; 96365; 96375; 99291; C9803; J0456; J0696; J1644; J1940; J2270; J2550; J2930; J3480; J3490; J7060; J7120; J7614; J7644

== ENCOUNTER → 2020-01-02 | Outpatient (CLI) | payer MEDICAID ==
--- NOTE | 2020-01-02 09:41 | RADIOLOGY REPORT (SQ) ---
EXAM DESCRIPTION: CHEST PA/LATERAL IMAGES COMPLETED DATE/TIME: 01/02/2020 9:25 am REASON FOR STUDY: PNEUMONIA, UNSPECIFIED ORGANISM COMPARISON: 12/01/2019. EXAM PARAMETERS: NUMBER OF VIEWS: two views TECHNIQUE: Digital Frontal and Lateral radiographic views of the chest acquired. RADIATION DOSE: NA LIMITATIONS: none FINDINGS: LUNGS AND PLEURA: No opacities, masses or pneumothorax. No pleural effusion. MEDIASTINUM AND HILAR STRUCTURES: No masses or contour abnormalities. HEART AND VASCULAR STRUCTURES: Heart normal size. No evidence for failure. BONES: No acute findings. HARDWARE: None in the chest. OTHER: No other significant finding. IMPRESSION: NO SIGNIFICANT RADIOGRAPHIC FINDING IN THE CHEST. TECHNICAL DOCUMENTATION: JOB ID: [id number] 2010 [employer]- All Rights Reserved Reading location - IP/workstation name: [email or web address]
== END ==
LOC: OD 09:13
PROVIDERS: ATTEND Physician Assistant
DX: J18.9 Pneumonia, unspecified organism (principal)
CPT/HCPCS: 71046

== ENCOUNTER 2020-01-14 09:46 | Day surgery (SDC) | payer MEDICAID ==
[2020-01-09 11:07] LABS: HEMATOCRIT 44.3 % (36.0-47.0); HEMOGLOBIN 15.5 g/dL (12.0-15.5); MEAN CORPUSCULAR HGB CONC 34.9 g/dL (32.0-36.0); MEAN CORPUSCULAR VOLUME 92 fl (80-97); PLATELET COUNT 251 10^3/uL (150-450); RED BLOOD COUNT 4.84 10^6/uL (3.72-5.28); RED CELL DISTRIBUTION WIDTH 13.8 % (11.5-14.0); WHITE BLOOD COUNT 7.9 10^3/uL (4.0-10.5)
[2020-01-09 11:24] LABS: ALBUMIN 4.6 g/dL (3.5-5.0); ALKALINE PHOSPHATASE 105 U/L (38-126); ANION GAP 7 (5-19); ASPARTATE AMINO TRANSFERASE 29 U/L (14-36); BILIRUBIN,DIRECT 0.1 mg/dL (0.0-0.4); BILIRUBIN,TOTAL 0.6 mg/dL (0.2-1.3); BLOOD UREA NITROGEN 20 mg/dL (7-20); CALCIUM 10.2 mg/dL (8.4-10.2); CARBON DIOXIDE 33 mmol/L (22-30); CHLORIDE 97 mmol/L (98-107); GLUCOSE 93 mg/dL (75-110); POTASSIUM 5.3 mmol/L (3.6-5.0); TOTAL PROTEIN 7.4 g/dL (6.3-8.2)
--- NOTE | 2020-01-09 13:21 | EKG REPORT ---
SEVERITY:- ABNORMAL ECG - SINUS RHYTHM FIRST DEGREE AV BLOCK CONSIDER RVH OR POSTERIOR INFARCT : Confirmed by: Chapin Young MD 09-Jan-2020 13:20:41
--- NOTE | 2020-01-09 13:32 | RADIOLOGY REPORT (SQ) ---
EXAM DESCRIPTION: CHEST PA/LATERAL IMAGES COMPLETED DATE/TIME: 01/09/2020 10:19 am REASON FOR STUDY: PRE OP COMPARISON: 01/02/2020 EXAM PARAMETERS: NUMBER OF VIEWS: two views TECHNIQUE: Digital Frontal and Lateral radiographic views of the chest acquired. RADIATION DOSE: NA LIMITATIONS: none FINDINGS: LUNGS AND PLEURA: No opacities, masses or pneumothorax. No pleural effusion. MEDIASTINUM AND HILAR STRUCTURES: No masses or contour abnormalities. HEART AND VASCULAR STRUCTURES: Heart normal size. No evidence for failure. BONES: No acute findings. HARDWARE: None in the chest. OTHER: No other significant finding. IMPRESSION: NO SIGNIFICANT RADIOGRAPHIC FINDING IN THE CHEST. TECHNICAL DOCUMENTATION: JOB ID: [id number] 2010 [employer]- All Rights Reserved Reading location - IP/workstation name: [email or web address]
[~2020-01-14 09:46] MED LIST changes: +ACETAMINOPHEN 325 MG TABLET PO PRN; +CEFOXITIN SODIUM 2 GM in DEXTROSE 5%-WATER 100 ML IV PRN; +RINGERS SOLUTION,LACTATED 1,000 ML IV PRN; -VERAPAMIL HCL 5 MG, LIDOCAINE HCL/PF 2 ML, NORMAL SALINE 6 ML in SYRINGE, DISPOSABLE, 1... IV PRN
[2020-01-14] MEDS ORDERED: ACETAMINOPHEN 325 MG TABLET ONE (10:10)
[2020-01-14] MEDS ORDERED: DEXAMETHASONE SOD PHOSPHATE INJ 4 MG/1 ML VIAL ONE (10:55)
[2020-01-14] MEDS ORDERED: MIDAZOLAM 2 MG/2 ML INJ ONE (10:55)
[2020-01-14] MEDS ORDERED: LIDOCAINE 2% INJ-PF (100 MG/5 ML) SYRINGE ONE (10:55)
[2020-01-14] MEDS ORDERED: ONDANSETRON HCL INJ/PF 4 MG/2 ML SDV ONE (10:55)
[2020-01-14] MEDS ORDERED: SUGAMMADEX SODIUM 200 MG/2 ML SDV IV ONE (10:55)
[2020-01-14] MEDS ORDERED: PROPOFOL INJ 200 MG/20 ML VIAL IV ONE (10:56)
[2020-01-14] MEDS ORDERED: FENTANYL CITRATE INJ/PF 100 MCG/2 ML AMPUL ONE ×2 (10:56→14:46)
[2020-01-14] MEDS ORDERED: MEPERIDINE HCL/PF INJ 25 MG/1 ML DISP.SYRIN IV PRN (12:38)
[2020-01-14] MEDS ORDERED: DIPHENHYDRAMINE HCL 50 MG/ML VIAL IV PRN (12:38)
[2020-01-14] MEDS ORDERED: MORPHINE SULFATE 10 MG/ML INJ IV PRN (12:38)
[2020-01-14] MEDS ORDERED: FENTANYL CITRATE INJ/PF 100 MCG/2 ML AMPUL IV PRN ×3 (12:38)
[2020-01-14] MEDS ORDERED: PROMETHAZINE HCL INJ 25 MG/1 ML VIAL IV PRN (12:38)
[2020-01-14] MEDS ORDERED: BUPIVACAINE HCL 0.25 % INJ/PF (2.5 MG/1 ML) 30 ML VIAL ONE (12:42)
[2020-01-14] MEDS ORDERED: IBUPROFEN 800 MG in NORMAL SALINE 250 ML IV PRN (13:45)
[2020-01-14] MEDS ORDERED: KETOROLAC TROMETHAMINE 60 MG/2 ML SDV ONE (13:52)
[2020-01-14] MEDS ORDERED: HYDROCODONE/ACETAMINOPHEN 10-325 MG TABLET PO PRN (15:55)
--- NOTE | 2020-01-14 15:56 | Discharge Summary ---
Discharge Summary (SDC) - Discharge Final Diagnosis: Chronic cholecystitis Date of Surgery: 01/14/20 Discharge Date: 01/14/20 Condition: Stable Forms: ASU Anesthesia D/C Instruction, Discharge POC-Surgical Service Treatment or Instructions: Discharge home. Diet as tolerated. Activity: No lifting greater than 10 pounds x 2 weeks. Follow-up with [facility] in 7 to 10 days. [place] 10/325 mg p.o. every 6 hours as needed for pain. Okay to shower starting on . No tub baths or swimming pools x2 weeks. Prescriptions: Hydrocodone/Acetaminophen [[place] 10-325 mg Tablet] 1 tab PO Q6HP PRN #14 tablet PRN Reason: For Pain Referrals: MARQUISE VALLE PA-C [Primary Care Provider] - JOE PARISI MD [ACTIVE STAFF] - Discharge Diet: As Tolerated Respiratory Treatments at Home: Deep Breathing/Coughing, Incentive Spirometer Discharge Activity: No Lifting Over 10 Pounds, No Lifting/Push/Pulling Home Care Assistance: Provided by Family Report the Following to Your Physician Immediately: Shortness of Breath, Nausea, Vomiting, Increase in Pain, Yellow Skin, Fever over 101 Degrees, Unusual Bleeding, Redness, Swelling, Warmth, Drainage-Yellow, IV Site Infection Signs
--- NOTE | 2020-01-14 16:09 | Operative Report ---
Nonrecallable Operative Report DATE OF SURGERY: 01/14/20 POSTOPERATIVE DIAGNOSIS: Chronic cholecystitis OPERATION: same as above SURGEON: JOE PARISI 1ST PERSONAL SECURITY SPECIALIST: ANNI CONTRERAS ANESTHESIA: GA TISSUE REMOVED OR ALTERED: Gallbladder COMPLICATIONS: None apparent ESTIMATED BLOOD LOSS: Minimal PROCEDURE: Drains/implants: None. Procedure in detail: After informed consent was obtained, the patient was brought to the operating room and laid in the supine position. The area of the abdomen was prepped and draped in a normal sterile fashion. A supraumbilical incision was created with a 15 blade scalpel. Dissection was carried through the subcutaneous tissues using sharp and blunt dissection. The cicatrix was identified, grasped with a Kalli clamp, and retracted upwards. The linea alba fascia was incised sharply, the abdomen was entered sharply. The balloon trocar was inserted, and pneumoperitoneum was achieved. A subxiphoid 5 mm port was placed under direct laparoscopic visualization. 2 more 5 mm ports were placed in the right upper quadrant in similar fashion. Atraumatic graspers were placed through the 5 mm ports. The gallbladder was retracted cephalad and laterally. Dissection was begun in the triangle of [place]. There was a dense inflammatory reaction present, consistent with chronic cholecystitis. The cystic duct and cystic artery were fully visualized and skeletonized. There was a large stone impacted in the cystic duct. Owing to the large amount of inflammation, and the dilated nature of the cystic duct, a dome down technique was preferred. The dome of the gallbladder was freed from the liver using electrocautery and blunt dissection. The gallbladder was removed from the liver, until the infundibulum was reached. The stone in the cystic duct was milked distally into the gallbladder. A PDS Endoloop was secured around the cystic duct. The gallbladder was then amputated, and placed into an Endo Catch bag. It was removed through the umbilicus. The camera was reinserted. The hilum was inspected. It was found to be free of any leakage of blood or bile. Once this was confirmed, the 5 mm trochars were removed. The 12 mm trocar was removed, and pneumoperitoneum was relieved. The supraumbilical fascia was closed using 0 Vicryl suture in [id number] fashion. The overlying skin was closed using 4-0 Vicryl Rapide suture in running subcuticular fashion. Dressings were placed, and the procedure was concluded. All sponge, instrument, and needle counts were correct x2. Condition: Stable. Anni Contreras PA-C was scrubbed and present the entirety of the procedure. She assisted with all portions of the procedure including opening the abdomen, insertion of the trochars, manipulation of the gallbladder, removal of the gallbladder, closure of the fascia, and closure of the skin.
[2020-01-14 19:11] VITALS: BP 136/98
== END 2020-01-14 16:40 | disposition home or self-care (01) ==
LOC: OROUT 09:46
PROVIDERS: ATTEND Surgery
DX: K80.12 Calculus of gallbladder with acute and chronic cholecystitis without obstruction (principal); K82.8 Other specified diseases of gallbladder; J45.909 Unspecified asthma, uncomplicated; K21.9 Gastro-esophageal reflux disease without esophagitis; M51.36 Other intervertebral disc degeneration, lumbar region; R05 Cough; I10 Essential (primary) hypertension; R41.3 Other amnesia; R45.0 Nervousness; F32.9 Major depressive disorder, single episode, unspecified; Z03.818 Encounter for observation for suspected exposure to other biological agents ruled out; Z90.49 Acquired absence of other specified parts of digestive tract; Z79.899 Other long term (current) drug therapy; Z90.710 Acquired absence of both cervix and uterus; F17.210 Nicotine dependence, cigarettes, uncomplicated; E66.9 Obesity, unspecified; M19.90 Unspecified osteoarthritis, unspecified site; Z79.891 Long term (current) use of opiate analgesic; Z80.0 Family history of malignant neoplasm of digestive organs
CPT/HCPCS: 47562; 93005; 36415 ×2; 84132; 85027; 87635; 80053; 88304 ×2; 71046; 93010; 00790; J3490 ×3; J2250; J1100; J1885; J3010; J2001; J2405; J7060; J7050; J2704; J1741; J0694; C9803; 790

== ENCOUNTER 2020-01-15 20:05 | Emergency (ER) | payer MEDICAID | END 2020-01-15 20:50 | disposition left against medical advice (07) | LOC: ER 20:05 | DX: Z53.21 Procedure and treatment not carried out due to patient leaving prior to being seen by health care provider (principal) ==

== ENCOUNTER → 2020-02-14 | Outpatient (CLI) | payer MEDICAID ==
[2020-02-14 15:03] LABS: ABSOLUTE EOSINOPHILS # (AUTO) 0.1 10^3/uL (0.0-0.6); ABSOLUTE LYMPHOCYTES (AUTO) 2.9 10^3/uL (0.5-4.7); ABSOLUTE MONOCYTES (AUTO) 0.4 10^3/uL (0.1-1.4); ABSOLUTE NEUT (AUTO) 3.7 10^3/uL (1.7-8.2); BASOPHILS % (AUTO) 0.6 % (0-2); HEMATOCRIT 41.9 % (36.0-47.0); HEMOGLOBIN 14.5 g/dL (12.0-15.5); MEAN CORPUSCULAR HEMOGLOBIN 31.7 pg (27.0-33.4); MEAN CORPUSCULAR HGB CONC 34.6 g/dL (32.0-36.0); MEAN CORPUSCULAR VOLUME 92 fl (80-97); MONOCYTES % (AUTO) 5.1 % (3-13); PLATELET COUNT 197 10^3/uL (150-450); RED BLOOD COUNT 4.57 10^6/uL (3.72-5.28); RED CELL DISTRIBUTION WIDTH 14.4 % (11.5-14.0); SEGMENTED NEUTROPHILS % (AUTO) 51.3 % (42-78); TOTAL CELLS COUNTED % (AUTO) 100 %; WHITE BLOOD COUNT 7.2 10^3/uL (4.0-10.5)
[2020-02-14 15:26] LABS: ALBUMIN 4.3 g/dL (3.5-5.0); ALKALINE PHOSPHATASE 108 U/L (38-126); ASPARTATE AMINO TRANSFERASE 39 U/L (14-36); BILIRUBIN,DIRECT 0.1 mg/dL (0.0-0.4); BILIRUBIN,TOTAL 0.6 mg/dL (0.2-1.3); BLOOD UREA NITROGEN 9 mg/dL (7-20); C-REACTIVE PROTEIN 21.1 mg/L (<10.0); CALCIUM 9.6 mg/dL (8.4-10.2); CHLORIDE 96 mmol/L (98-107); GLUCOSE 97 mg/dL (75-110); POTASSIUM 4.3 mmol/L (3.6-5.0); TOTAL PROTEIN 7.3 g/dL (6.3-8.2)
[2020-02-14 15:29] LABS: CARBON DIOXIDE 36 mmol/L (22-30)
[2020-02-14 15:31] LABS: ANION GAP 4 (5-19)
[2020-02-14 15:41] LABS: ERYTHROCYTE SEDIMENTATION RATE 15 mm/hr (0-20)
== END ==
LOC: OD 14:36
PROVIDERS: ATTEND Physician Assistant
DX: R10.84 Generalized abdominal pain (principal); R23.2 Flushing
CPT/HCPCS: 36415; 80053; 85025; 85652; 86140